=== PATIENT | male | born 1945 | race Caucasian/White ===

== ENCOUNTER 2016-06-06 12:49 | Emergency (ER) | payer MEDICARE, MEDICAID ==
[2016-02-18 12:18] VITALS: BMI 21.9
[~2016-06-06 12:49] MED LIST: COREG12.5 MG PO; Diabeta PO; FERREX 150 PLUS1 CAP PO; FLUTICASONE PRO16 GM NASAL; LANTUS INSULIN10 ML SC; LANTUS INSULIN10 ML SQ; LASIX40 MG PO; LISINOPRIL5 MG PO; PROTONIX40 MG PO; TUMS500 MG PO
[2016-06-06 14:41] LABS: BASOPHILS 0.3 % (0.0-2.0); EOSINOPHILS 3.4 % (0-7); HEMATOCRIT 42.1 % (42.0-54.0); HEMOGLOBIN 13.2 g/dL (13.5-17.5); IMMATURE GRANULOCYTES 0.2 % (0-5); LYMPHOCYTES 18.8 % (15-50); MCH 30.3 pg (26.0-34.0); MCHC 31.4 g/dL (31.0-37.0); MCV 96.8 fL (80.0-100.0); MEAN PLATELET VOLUME 11.5 fL (7.4-10.4); MONOCYTES 15.3 % (2-11); PLATELET COUNT 173 10x3/uL (130-400); RBC 4.35 10x6/uL (4.20-6.10); RDW 16.1 % (11.5-14.5); WBC 5.8 10x3/uL (4.8-10.8)
[2016-06-06 15:16] LABS: APTT 33.8 SECONDS (22.8-39.4); INR 1.05 (0.85-1.17); PROTIME 13.6 SECONDS (11.6-15.0)
[2016-06-06 15:26] LABS: PHOSPHOROUS 5.2 mg/dL (2.5-4.9); TROPONIN-I 0.021 ng/mL (0.000-0.060)
== END 2016-06-06 17:45 | disposition home or self-care (01) ==
LOC: D.ER 12:49
PROVIDERS: Emergency Medicine; Nurse Practitioner Family
DX: T82.838A Hemorrhage due to vascular prosthetic devices, implants and grafts, initial encounter (principal); I12.9 Hypertensive chronic kidney disease with stage 1 through stage 4 chronic kidney disease, or unspecified chronic kidney disease; N18.9 Chronic kidney disease, unspecified; E11.9 Type 2 diabetes mellitus without complications

== ENCOUNTER 2016-07-31 07:58 | Emergency (ER) | payer MEDICARE, MEDICAID ==
[2016-02-18 12:18] VITALS: BMI 21.9
[2016-07-31 08:33] LABS: HEMATOCRIT 27.6 % (42.0-54.0); HEMOGLOBIN 9.4 g/dL (13.5-17.5); LYMPHOCYTES 13.1 % (15-50); MCH 31.9 pg (26.0-34.0); MCHC 34.1 g/dL (31.0-37.0); MCV 93.6 fL (80.0-100.0); MEAN PLATELET VOLUME 10.2 fL (7.4-10.4); NEUTROPHILS 76.6 % (40-80); PLATELET COUNT 191 10x3/uL (130-400); RBC 2.95 10x6/uL (4.20-6.10); RDW 14.2 % (11.5-14.5); WBC 10.6 10x3/uL (4.8-10.8)
[2016-07-31 08:52] LABS: ALKALINE PHOSPHATASE 49 U/L (46-116); ALT (SGPT) 12 U/L (10-68); AMYLASE - SERUM 133 U/L (25-115); BILIRUBIN - TOTAL 0.25 mg/dL (0.2-1.3); CALC OSMOLALITY 314 mosm/kg (275-300); CALCIUM 9.5 mg/dL (8.5-10.1); CARBON DIOXIDE 26.4 mmol/L (21.0-32.0); CHLORIDE - SERUM 101 mmol/L (98-107); CREATININE - SERUM 7.3 mg/dL (0.6-1.3); LIPASE 122 U/L (73-393); POTASSIUM - SERUM 3.8 mmol/L (3.5-5.1); PROTEIN - SERUM 6.8 g/dL (6.4-8.2); SODIUM 139 mmol/L (136-145); UREA NITROGEN 99 mg/dL (7-18); eGFR NON AFRICAN AMERICAN 8 mL/min (90-120)
[2016-07-31 08:54] LABS: GLUCOSE 214 mg/dL (74-106)
[2016-07-31 09:02] LABS: KETONE - SERUM NEGATIVE (NEGATIVE)
== END 2016-07-31 11:03 | disposition home or self-care (01) ==
LOC: D.ER 07:58
PROVIDERS: Emergency Medicine
DX: E86.0 Dehydration (principal); R11.2 Nausea with vomiting, unspecified; E11.22 Type 2 diabetes mellitus with diabetic chronic kidney disease; E11.65 Type 2 diabetes mellitus with hyperglycemia; I12.0 Hypertensive chronic kidney disease with stage 5 chronic kidney disease or end stage renal disease; N18.6 End stage renal disease; Z79.4 Long term (current) use of insulin

== ENCOUNTER 2016-09-07 08:06 | Day surgery (SDC) | payer MEDICARE ==
[2016-02-18 12:18] VITALS: BMI 21.9
[2016-09-07] MEDS ORDERED: RENVELA800 MG PO (08:59)
--- NOTE | 2016-09-07 09:09 | NUR ---
PATIENT HAS EATEN A HALF A BOWL OF OATMEAL THIS MORNING.STATES DID NOT KNOW HE WAS TO BE NPO AFTER MIDNIGHT. DR ALEJANDRO INFORMED THAT HE HAD EATEN HALF A BOWL OF OATMEAL, ALSO INFORMED DR CHOE. SURGERY HAS BEEN CANCELLED. PT INSTRUCTED TO CALL DR ALEJANDRO'S OFFICE FOR RESCHEDULE. DR ALEJANDRO INFORMED LAB WAS DRAWN VIA LEFT ARM. PATIENT INSTRUCTED ON NOT LETTING ANYONE DO A BLOOD PRESSURE OR LAB DRAW ON LEFT ARM AND NOT TO WEAR JEWELRY OR RESTRICTIVE CLOTHING ON LEFT ARM.
[2016-09-07 09:13] LABS: BASOPHILS 0.7 % (0-2); HEMOGLOBIN 10.5 g/dL (13.5-17.5); IMMATURE GRANULOCYTES 0.2 % (0-5); LYMPHOCYTES 18.2 % (15-50); MCH 31.9 pg (26.0-34.0); MCHC 30.9 g/dL (31.0-37.0); MCV 103.3 fL (80.0-100.0); MONOCYTES 9.6 % (2-11); NEUTROPHILS 68.3 % (40-80); PLATELET COUNT 234 10x3/uL (130-400); RBC 3.29 10x6/uL (4.20-6.10); RDW 15.2 % (11.5-14.5); WBC 6.1 10x3/uL (4.8-10.8)
[2016-09-07 09:21] LABS: INR 1.06 (0.85-1.17); PROTIME 13.7 SECONDS (11.6-15.0)
[2016-09-07 09:22] LABS: APTT 33.1 SECONDS (22.8-39.4)
[2016-09-07 09:23] LABS: ANION GAP 11.8 mmol/L (8-16); CALCIUM 8.8 mg/dL (8.5-10.1); CARBON DIOXIDE 28.1 mmol/L (21.0-32.0); CREATININE - SERUM 5.9 mg/dL (0.6-1.3); POTASSIUM - SERUM 3.9 mmol/L (3.5-5.1)
== END 2016-09-07 09:14 | disposition home or self-care (01) ==
LOC: D.OPS 08:06
PROVIDERS: Internal Medicine Nephrology
DX: N18.6 End stage renal disease (principal); Z01.810 Encounter for preprocedural cardiovascular examination; Z01.811 Encounter for preprocedural respiratory examination; Z01.812 Encounter for preprocedural laboratory examination; Z53.9 Procedure and treatment not carried out, unspecified reason

== ENCOUNTER 2016-11-17 20:30 | Inpatient (IN) | payer MEDICARE ==
[~2016-11-17] VITALS: Ht 170.2 cm; Wt 63.9 kg
[~2016-11-17 20:30] MED LIST changes: +RENVELA800 MG PO
[2016-11-17 21:04] LABS: BASOPHILS 0.3 % (0-2); EOSINOPHILS 3.3 % (0-7); HEMATOCRIT 41.5 % (42.0-54.0); HEMOGLOBIN 13.1 g/dL (13.5-17.5); IMMATURE GRANULOCYTES 0.2 % (0-5); LYMPHOCYTES 10.4 % (15-50); MCH 31.5 pg (26.0-34.0); MCHC 31.6 g/dL (31.0-37.0); MCV 99.8 fL (80.0-100.0); MONOCYTES 8.9 % (2-11); NEUTROPHILS 76.9 % (40-80); RBC 4.16 10x6/uL (4.20-6.10); RDW 14.3 % (11.5-14.5); WBC 11.9 10x3/uL (4.8-10.8)
[2016-11-17 21:06] LABS: PLATELET COUNT 185 10x3/uL (130-400)
[2016-11-17 21:20] LABS: APTT 33.5 SECONDS (22.8-39.4); INR 0.97 (0.85-1.17); PROTIME 12.7 SECONDS (11.6-15.0)
[2016-11-17 21:25] LABS: ALBUMIN 3.3 g/dL (3.4-5.0); ANION GAP 9.2 mmol/L (8-16); BILIRUBIN - TOTAL 0.51 mg/dL (0.2-1.3); CALCIUM 8.9 mg/dL (8.5-10.1); CARBON DIOXIDE 29.2 mmol/L (21.0-32.0); CREATININE - SERUM 6.2 mg/dL (0.6-1.3); POTASSIUM - SERUM 4.4 mmol/L (3.5-5.1); PROTEIN - SERUM 6.9 g/dL (6.4-8.2)
[2016-11-17 21:38] LABS: APPEARANCE CLEAR (CLEAR); BILIRUBIN NEGATIVE (NEGATIVE); COLOR YELLOW (YELLOW); GLUCOSE 250 mg/dL (NEGATIVE); KETONE NEGATIVE (NEGATIVE); LEUKOCYTE ESTERASE NEGATIVE (NEGATIVE); NITRITE NEGATIVE (NEGATIVE); PROTEIN 2+ mg/dL (NEGATIVE); SPECIFIC GRAVITY 1.005 (1.005-1.020); UROBILINOGEN NORMAL (NORMAL)
[2016-11-17 21:47] LABS: BACTERIA FEW /hpf (NONE SEEN); EPITHELIAL CELLS RARE /hpf (0-5); HYALINE CAST OCC /lpf (NONE SEEN); RED CELLS - URINE 0-5 /hpf (0-5); WHITE CELLS - URINE OCC /hpf (0-5)
[2016-11-18] VITALS (7 sets, daily range): BP systolic 139–223; BP diastolic 66–104; BMI 22.9
--- NOTE | 2016-11-18 02:00 | NUR ---
PT ARRIVED TO ROOM 2130 AT 0100 PER STRETCHER. ALERT/DIFFICULT TO UNDERSTAND SPEECH, SOME SLURRING OF WORDS NOTED. ADMISSION HISTORY AND ASSESSMENT COMPLETED. LEFT CHEST WALL HEMOSPLIT WITH DRESSIG IN PLACE. 20G PIV TO LEFT HAND. PT INDICATED THAT RENAL HAS BEEN RESERVING HIS RIGHT ARM FOR A FUTURE FISTULA. SPENCER PATENT TO BEDSIDE DRAIN BAG. PT HAD BEEN HAVING SEVERE RIGHT FOOT PAIN WHILE IN ER, ETIOLOGY UNKNOWN. FOOT IS NOW WRAPPED IN A TOWEL AND PT IS SAYING IT IS OK, BUT TO LEAVE IT WRAPPED. SEE ADMISSION ASSESSMENT. INITIATE PLAN OF CARE.
--- NOTE | 2016-11-18 07:21 | NUR ---
PT IN BED. GOWN NURSING HOME OFF. COMPLAINS OF BEING "TANGLED." RE-MADE PTs BED. REPLACED TELEMETRY LEADS. PT STILL COMPLAINING OF BEING "TANGLED." SLURRED SPEECH NOTED. WILL CONTINUE TO MONITOR.
--- NOTE | 2016-11-18 12:34 | NUR ---
RECIEVING COMPLAINTS FROM PATIENTS IN ROOMS SURROUNDING THIS PTs ROOM. PT HAS BEEN YELLING REPEATEDLY SINCE THE DIRECTOR OF IT OPERATIONS HOURS. WHEN ASKED WHAT HIS NEEDS ARE HE STATES "IM BEING IGNORED" I HAVE BEEN IN HIS ROOM EVERY 15 MINUTES SINCE REECIEVING REPORT AT 0700. I HAVE CHANGED HIS BED. HE HAS BEEN BATHED. HE RECIVED HIS MORNING MEDS. HE IS CONSTANTLY COMPLAINING OF RIGHT CALF PAIN. I REPORTED THIS TO VISHALN INDUSTRIAL ENGINEER. SHE ORDERED A DOPPLER. I WILL CONTINUE TO MONITOR.
--- NOTE | 2016-11-18 12:38 | NUR ---
CONCHITA TAVAREZ CALLED TO CHECK ON PATIENT. REPORTS THAT PATIENT DID NOT GET DIALYSIS YESTERDAY. STATES THAT HE IS ON HIS WAY UP TO VISIT AT THIS TIME. THIS ZOOGLER STATED THAT WOULD BE A GREAT IDEA, MAY HELP BEHAVIORS THAT PATIENT IS EXHIBITING.
--- NOTE | 2016-11-18 12:43 | NUR ---
PATIENT CONTINUALLY PUSHES HIS CALL LIGHT. SOON THE NURSE LEAVES THE ROOM, PATIENT IS PUSHING THE CALL LIGHT. PATIENT CONTINUES TO STATE HE IS BEING IGNORED. PATIENT DENIES ANY NEEDS. UNABLE TO PROVIDED ONE ON ONE CARE TO THIS PATIENT, PATIENT WANTS SOMEONE IN THE ROOM WITH HIM. WAITING FOR CAREGIVER TO ARRIVE AT THIS TIME.
--- NOTE | 2016-11-18 13:46 | NUR ---
NEW ORDER RECEIVED FROM RENAL AUTOMATIC FANCY MACHINE OPERATOR FOR PROJECTILE VOMITING.
--- NOTE | 2016-11-18 13:53 | NUR ---
MEDICATED FOR NAUSEA AND VOMITING AT THIS TIME. PATIENT LEAVING UNIT VIA BED AT THIS TIME FOR CT.
--- NOTE | 2016-11-18 14:10 | NUR ---
PT RETURNED TO FLOOR AT THIS TIME.
--- NOTE | 2016-11-18 16:25 | NUR ---
IV LABETALOL ADMINISTERED FOR BP 223/104. BP NOW 205/98. WILL CONTINUE TO MONITOR BP.
--- NOTE | 2016-11-18 17:35 | NUR ---
BP CONTINUED TO BE ELEVATED AT 198/98 ONE HOUR S/P ADMINISTERING 10MG LABETALOL IV. HYDRALAZINE 20MG ADMINISTERED AT THIS TIME. BP REDUCED TO 177/86 AT THIS TIME. NO DISTRESS.
--- NOTE | 2016-11-18 19:30 | NUR ---
RECEIVED PT IN BED EYES CLOSED RESP UNLABORED SKIN W/D NAD NOTED WILL CONTINUE TO MONITOR
--- NOTE | 2016-11-18 20:41 | NUR ---
PT NAUSEATED AND VOMITTING BROWN EMESIS APPROX 150 CC ZOFRAN 4 MG GIVED SIVP
--- NOTE | 2016-11-18 21:15 | NUR ---
PT RESITING QUIETLY EYES CLOSED RESP UNLABORED WILL CONTINUE TO MONITOR
[2016-11-19] VITALS: BP 188/81
[2016-11-19 06:06] LABS: BASOPHILS 0.2 % (0-2); EOSINOPHILS 1.6 % (0-7); HEMATOCRIT 45.1 % (42.0-54.0); HEMOGLOBIN 14.3 g/dL (13.5-17.5); IMMATURE GRANULOCYTES 0.2 % (0-5); MCH 31.4 pg (26.0-34.0); MCHC 31.7 g/dL (31.0-37.0); MCV 99.1 fL (80.0-100.0); MEAN PLATELET VOLUME 11.6 fL (7.4-10.4); MONOCYTES 7.8 % (2-11); NEUTROPHILS 85.2 % (40-80); RBC 4.55 10x6/uL (4.20-6.10); RDW 14.6 % (11.5-14.5); WBC 12.2 10x3/uL (4.8-10.8)
[2016-11-19 06:09] LABS: PLATELET COUNT 232 10x3/uL (130-400)
[2016-11-19 06:27] LABS: ANION GAP 17.4 mmol/L (8-16); CARBON DIOXIDE 27.2 mmol/L (21.0-32.0); POTASSIUM - SERUM 4.6 mmol/L (3.5-5.1)
--- NOTE | 2016-11-19 07:24 | NUR ---
AM ROUNDS- PT IN BED, WITH EYES CLOSED. BOX ALARM ATTACHED TO PT. BED LOW AND WHEELS LOCKED. BEDRAILS X2, CALL LIGHT IN REACH, NAD NOTED, WILL CONTINUE TO MONITOR.
[2016-11-19 07:34] VITALS: BP 194/84
--- NOTE | 2016-11-19 08:57 | NUR ---
AM MEDS NOT GIVEN SINCE PT IS STRICT NPO UNTIL SWALLOW EVAL IS DONE.
--- NOTE | 2016-11-19 09:29 | NUR ---
20MG OF HYDRALAZINE GIVEN FOR BP OF 194/84. PLACED PT ON BEDPAN AT THIS TIME. PROVIDED TEACHING ON HOW TO USE CALL LIGHT AND ABOUT NOT GETTING OUT OF BED WITH OUT ASSIST. PT DENIES ANY NEEDS AT THIS TIME. CALL LIGHT IN REACH, NAD NOTED, WILL CONTINUE TO MONITOR.
--- NOTE | 2016-11-19 10:57 | NUR ---
CAREGIVER AT BEDSIDE. PT TOLD CAREGIVER THAT HAS RECEIVED ANY CARE THIS AM. INFOMRED CAREGIVER THAT I HAVE HELPED THE PT WITH THE BEDPAN TWICE AND THAT WILLIAN SAINI HAS BEEN IN PT'S ROOM A COUPLE OF TIMES THIS AM. CAREGIVER WAITING ON DOCTOR TO MAKE ROUNDS CONCERN ABOUT PT'S RT FOOT HURTING. PT DENIES ANY NEEDS AT THIS TIME. CALL LIGHT IN REACH, NAD NOTED, WILL CONTINUE TO MONITOR.
--- NOTE | 2016-11-19 11:06 | NUR ---
BLOOD SUGAR OF 126, NO COVERAGE NEEDED PER S/S. PT IN BED, RT LEG ELEVATED. PT DENIES ANY NEEDS AT THIS TIME. CALL LIGHT IN REACH, CAREGIVER AT BEDSIDE, NAD NOTED, WILL CONTINUE TO MONITOR.
[2016-11-19 11:50] VITALS: BP 151/69
[2016-11-19 13:16] VITALS: Ht 170.2 cm; Wt 63.9 kg
[2016-11-19 15:31] VITALS: BP 128/58
--- NOTE | 2016-11-19 16:27 | NUR ---
OK TO HAVE MECHANICAL SOFT DIET PER SPEECH THERAPIST. WILL ORDER PT A DIET
--- NOTE | 2016-11-19 16:46 | NUR ---
BLOOD SUGAR OF 114 NO COVERAGE NEEDED PER S/S. PT IN BED DENIES ANY NEEDS AT THIS TIME. CALL LIGHT IN REACH, NAD NOTED, CAREGIVER AT BEDSIDE, NAD NOTED, WILL CONTINUE TO MONITOR.
--- NOTE | 2016-11-19 19:30 | NUR ---
PT LYING IN BED. RESTING QUIETLY. PT STATES HE HAS A PAIN LEVEL OF O/10. FSBS ACHS. BED ALARM. REFUSES SCD'S. SPENCER CATH. TELEMETRY. NO O2. LEFT HAND SALINE LOC. LEFT CHEST HEMOSPLIT. DIALYSIS T, TH, SAT. BED IN LOWEST POSITION AND CALL LIGHT WIHTIN REACH.
[2016-11-19 20:59] VITALS: BP 142/71
[2016-11-20 01:20] VITALS: BP 130/79
--- NOTE | 2016-11-20 01:49 | NUR ---
PT LYING IN BED. EYES CLOSED. CHEST RISING AND FALLING. BED IN LOWEST POSITION AND CALL LIGHT WITHIN REACH.
--- NOTE | 2016-11-20 03:09 | NUR ---
PT RESTING IN BED WITH NO DISTRESS. RESPS EVEN/NONLABORED. NO DISTRESS. CPOC.
[2016-11-20 04:37] LABS: BASOPHILS 0.2 % (0-2); EOSINOPHILS 2.1 % (0-7); HEMATOCRIT 44.2 % (42.0-54.0); HEMOGLOBIN 14.1 g/dL (13.5-17.5); IMMATURE GRANULOCYTES 0.2 % (0-5); LYMPHOCYTES 5.6 % (15-50); MCH 31.7 pg (26.0-34.0); MCHC 31.9 g/dL (31.0-37.0); MCV 99.3 fL (80.0-100.0); MEAN PLATELET VOLUME 11.2 fL (7.4-10.4); MONOCYTES 8.7 % (2-11); NEUTROPHILS 83.2 % (40-80); PLATELET COUNT 229 10x3/uL (130-400); RBC 4.45 10x6/uL (4.20-6.10); RDW 14.8 % (11.5-14.5); WBC 12.2 10x3/uL (4.8-10.8)
[2016-11-20 04:58] LABS: ANION GAP 14.8 mmol/L (8-16); CALCIUM 9.1 mg/dL (8.5-10.1); CARBON DIOXIDE 27.4 mmol/L (21.0-32.0); POTASSIUM - SERUM 4.2 mmol/L (3.5-5.1)
[2016-11-20 05:04] VITALS: BP 183/83
--- NOTE | 2016-11-20 07:10 | NUR ---
RECEIVED REPORT. ASSUMED CARE OF PATIENT. CALL LIGHT WITHIN REACH. PATIENT ALERT/ORIENTED. SLIGHT SLURRED SPEECH NOTED WITH RIGHT SIDED WEAKNESS STATED IN REPORT THIS AM. DENIES NEEDS. RESP EVEN AND UNLABORED. NO DISTRESS.
[2016-11-20 08:12] VITALS: BP 158/86
--- NOTE | 2016-11-20 09:13 | NUR ---
PT AT BEDSIDE WORKING WITH PATIENT.
--- NOTE | 2016-11-20 11:45 | NUR ---
PATIENT BP ELEVATED. BP MEDS HELD THIS AM FOR DIALYSIS. SPOKE WITH RENAL DISPENSING OPTICIANKanchan ALMONTE AND EXPLAINED THAT BP IS ELEVATED BUT MEDS HELD FOR DIALYSIS AND GAVE ORDER TO GIVE ONE BP MED THAT SHOULD HAVE BEEN GIVEN THIS AM. CARVEDILOL ADMINISTERED.
[2016-11-20 11:47] VITALS: BP 208/88
--- NOTE | 2016-11-20 12:14 | NUR ---
FSBS 140. NO INSULIN COVERAGE REQUIRED.
--- NOTE | 2016-11-20 15:00 | NUR ---
PATIENT LEFT UNIT VIA BED FOR DIALYSIS. NO DISTRESS UPON LEAVING UNIT.
--- NOTE | 2016-11-20 16:05 | NUR ---
Patient Name: MINNIE ACEVEDO Admission Status: ER Accout number: [id number] Admission Date: 11-17-2016 : 1945 Admission Diagnosis: Attending: OFELIA Current LOS: 3 Anticipated DC Date: Planned Disposition: LONG-TERM FACILITY Primary Insurance: MEDICARE A & B PLANNED EXTERNAL PROVIDER: [facility], MEDICARE REHAB BED Discharge Planning Comments: * Is the patient Alert and Oriented? Yes 0 * How many steps to enter\exit or inside your home? ELEVATOR 0 * PCP NONE REPORTS SEEING UNKNOWN DOCTOR AT [facility] 0 * Pharmacy [facility] [place] 0 * Preadmission Environment Home with Family 0 * ADLs Partial Dependent 0 * Partial ADLs (Assistance needed) Bathing Medication Management 0 * Equipment Cane Glucometer Rolling Walker Wheelchair 0 * Other Equipment NO MEDICAL EQUIPMENT PROVIDER PREFERENCE 0 * List name and contact numbers for known caregivers / representatives who currently or will assist patient after discharge: CONCHITA TAVAREZ, FRIEND/CAREGIVER, 0 * Community resources currently utilized OTHER 0 * Please name any agencies selected above. OUTPATIENT DIALYSIS, [facility], // 5AM, [facility]SP[facility] * Additional services required to return to the preadmission environment? Yes * Can the patient safely return to the preadmission environment? Yes 0 * Has this patient been hospitalized within the prior 30 days at any hospital? No 0 CM MET WITH PT IN ROOM TO DISCUSS DISCHARGE PLANNING AND NEEDS. PT REPORTS LIVING AT HOME WITH THE HELP OF HIS CAREGIVER AND FRIEND, CONCHITA TAVAREZ; PT REPORTS CONCHITA IS AT THE HOME 24 HOURS PER DAY, 7 DAYS PER WEEK. PT HAS CANE, ROLLING WALKER WITH SEAT, GLUCOMETER AND WHEELCHAIR. PT HAS NO MEDICAL EQUIPMENT PROVIDER PREFERENCE. PT HAS NO OUTSIDE SERVICES ASSISTING IN THE HOME. CM DISCUSSED AVAILABILITY OF HOME HEALTH, REHAB SERVICES AND MEDICAL EQUIPMENT. PT REPORTS HE MAY CONSIDER SNF CARE AND WOULD LIKE REHAB SERVICES FIRST; CM DISCUSSED AVAILABILTY OF LONG-TERM FACILITIES IN [place] PT INSISTS ON STAYING IN [place], PT CHOSE [facility] OR [facility], REPORTS HE IS UNABLE TO SIGN CHOICE LETTER DUE TO STROKE. IMPORTANT MESSAGE FROM MEDICARE PROVIDED AND EXPLAINED, PT REPORTED INABILITY TO SIGN AND STATED UNDERSTANDING. CM FAXED REFERRAL TO [facility] AND [facility], . CM WAITING ADMISSION DETERMINATION FROM BOTH LONG-TERM FACILITIES. Paper Cone Maker: Herminio Bowman
--- NOTE | 2016-11-20 17:00 | NUR ---
FSBS 120. NO INSULIN ADMINISTERED PER SLIDING SCALE. PATIENT IS TOLERATING DIALYSIS WELL.
--- NOTE | 2016-11-20 18:15 | NUR ---
PATIENT REMAINS DOWNSTAIRS IN DIALYSIS AT THIS TIME.
--- NOTE | 2016-11-20 19:16 | NUR ---
PT LYING IN BED. RESTING QUIETLY. PT STATES HE HAS A PAIN LEVEL OF O/10. FSBS ACHS. BED ALARM. REFUSES SCD'S. SPECNER CATH. TELEMETRY. NO O2. LEFT HAND SALINE LOC. LEFT CHEST HEMOSPLIT. DIALYSIS T, TH, SAT. PT HAD DIALYSIS TODAY. CAREGIVER IN ROOM. BED IN LOWEST POSITIOBN AND CALL LIGHT WITHIN REACH.
[2016-11-20 20:39] VITALS: BP 138/67
--- NOTE | 2016-11-20 23:10 | NUR ---
CALLED ANSWERING SERVICE X1, ADELE RN CALLED ANSWERING SERVICE X2 TO HAVE THEM PAGE GLASS OR MIRROR INSPECTOR BOOSTER ASSEMBLER. CALL RETURNED FROM DR. MILLARD. INFORMED DR. MILLARD PT IS YELLING OUT AND DISRUPTING OTHER PT'S AND IS CONFUSED AND IS TRYING TO GET OUT OF BED. DR. MILLARD GAVE ME ORDERS FOR A ONE TIME DOSE OF RISPERDONE 0.5MG.
[2016-11-21 00:07] VITALS: BP 153/82
--- NOTE | 2016-11-21 01:24 | NUR ---
NURSE ROUNDS 11/20/06 22:30 - PT LYING IN BED, YELLING OUT, BEING DISRUPTIVE, C/O OF HIS LEG HURTING. PT REFUSED TO BE CONSOLED, AND CONTINUED TO YELL LOUDLY, CAUSING OTHER PATIENTS TO BECOME UNCONFORTABLE AND START COMPLAINING WELL. DARRICK DAVILA, PTS NURSE, DID SPEAK WITH DR. MILLARD WHO ORDERED RISPERDAL 0.5 MG X 1 VIA TELEPHONE AFTER BEING PAGED. PT HOWEVER DID CALM DOWN, FALLING ASLEEP, NOT REQUIRING THE DOSE OF RISPERDAL AT THAT TIME. I WILL PROVIDE SUPPORTIVE CARE TO PT AND NURSE FOR THE REMAINDER OF THIS SHIFT. WILL CONTINUE TO MONITOR PT CLOSELY. BED LOW, CALL LIGHT IN REACH, SIDE RAILS X 3, HOB 10-15 DEGREES, BED ALARM ON.
--- NOTE | 2016-11-21 02:47 | NUR ---
PT YELLING OUT AND TRYING TO GET OUT OF BED. RISPERDONE WILL BE GIVEN ONE TIME DOSE ORDERED.
--- NOTE | 2016-11-21 03:23 | NUR ---
PT BEING VERY DIFFICULT TO HIS PRIMARY NURSE. HE IS CONFUSED/FORGETFUL AND EASILY AGITATED. SPOKE WITH PATIENT ABOUT IMPORTANCE OF KEEPING HIS TELEMETERY ON AND REPLACED HIS TELEMETRY AT THIS TIME. ADMINISTERED DOSE OF RISPERDAL THAT WAS ORDERED EARLIER AND TOLD PT THAT HIS MD HAD ORDERED IT FOR HIM TO SLEEP. DOSE HAD BEEN HELD UNTIL NOW DUE TO PT FALLING ASLEEP AND NO LONGER BEING BELLIGERENT AFTER ORDER HAD BEEN RECIEVEDD, BUT NOW THAT PT IS AWAKE, HE IS, AGAIN, BELLIGERENT/CONFUSED AND NEEDS THE MED. MED HAS NOW BEEN GIVEN. PT ASSISTED TO POSITION OF COMFORT AND COVERED WITH HIS BLANKET AND ENCOURAGED TO SLEEP UNTIL HE SEES HIS MD IN AM. WILL MONITOR AND CONTINUE PLAN OF CARE,
--- NOTE | 2016-11-21 05:08 | NUR ---
PT LYING IN BED. EYES CLOSED. RESP. EVEN. BED IN LOWEST POSITION AND CALL LIGHT WITHIN REACH.
[2016-11-21 05:12] VITALS: BP 127/66
[2016-11-21 05:27] LABS: BASOPHILS 0.3 % (0-2); EOSINOPHILS 3.2 % (0-7); HEMATOCRIT 41.7 % (42.0-54.0); HEMOGLOBIN 13.2 g/dL (13.5-17.5); IMMATURE GRANULOCYTES 0.3 % (0-5); LYMPHOCYTES 13.4 % (15-50); MCH 31.4 pg (26.0-34.0); MCHC 31.7 g/dL (31.0-37.0); MCV 99.3 fL (80.0-100.0); MEAN PLATELET VOLUME 11.2 fL (7.4-10.4); MONOCYTES 13.7 % (2-11); NEUTROPHILS 69.1 % (40-80); PLATELET COUNT 204 10x3/uL (130-400); RDW 14.8 % (11.5-14.5)
[2016-11-21 05:32] LABS: WBC 6.8 10x3/uL (4.8-10.8)
[2016-11-21 05:50] LABS: ANION GAP 13.7 mmol/L (8-16); CALCIUM 9.1 mg/dL (8.5-10.1); CARBON DIOXIDE 28.3 mmol/L (21.0-32.0)
[2016-11-21 05:56] LABS: CREATININE - SERUM 5.2 mg/dL (0.6-1.3)
--- NOTE | 2016-11-21 07:24 | NUR ---
AM ROUNDS - PT RESTING QUIETLY, RR EVEN AND UNLABORED. PT IS ALERT AND ORIENTED TO PERSON AND PLACE. DENIES OTHER NEEDS AT THIS TIME. WILL CTM.
[2016-11-21 09:40] VITALS: BP 127/73
--- NOTE | 2016-11-21 10:40 | NUR ---
HEMASPLIT DRESSING CHANGED. STERILE FEILD MAINTAINED. PT RIPPED A HOLE IN THE ORIGINAL DRESSING. EXPLAINED TO PT IMPORTANCE OF KEEPING THE DRESSING INTACT.
[2016-11-21 12:25] VITALS: BP 182/92
--- NOTE | 2016-11-21 14:00 | NUR ---
Patient Name: MINNIE ACEVEDO Encounter No: [id number] : 1945 Primary Insurance: MEDICARE A & B Anticipated DC Date: 11-21-2016 Planned Disposition: Group Home Facility External Planned Provider: [facility], MEDICARE REHAB BED DCP follow-up note: CM RECEIVED DISCHARGE ORDER, MET WITH PT WHO IS IN AGREEMENT WITH DISCHARGE TO THE [facility] TODAY, PT DOES NOT WANT [facility] FOR REHAB. CM CALLED [facility], NOTIFIED K[facility] VIA MESSAGE THAT PT DID NOT WANT REHAB THERE. CM NOTIFIED ANU WHO REPORTS THE [facility] WILL ACCEPT TODAY AND WILL ARRANGE VAN [employer]GR[employer] PRINTER TIME. CM FAXED DISCHARGE INFORMATION TO THE [facility] AT [phone]. FOR DISCHARGE TO THE [facility], NURSE REPORT TO BE CALLED TO THE [facility] AT [phone]. THE [facility] TO ARRANGE VAN TRANSPORATION FOR 1600 HOURS TODAY. DAYSI HIGGINS, CASE MANAGEMENT
--- NOTE | 2016-11-21 14:57 | NUR ---
CALLED REPORT TO KIRBY GUERRA AT THE [facility]. WILL GIVE COPY OF PAPERWORK TO TRANSPORTED FROM [facility]. PT RESTING QUIETLY, AWAITING DISHCARGE.
--- NOTE | 2016-11-21 17:15 | NUR ---
PT DISCHARGED. TRANSPORTED FROM [facility] VIA WHEELCHAIR. [facility] STAFF PICKED UP PT.
--- NOTE | 2016-11-21 17:32 | NUR ---
OT NOTE: PT COMPLETED BED MOB WITH SBA. PT COMPLETED EOB SITTING WITH SBA. PT COMPLETED GROOMING AND ORAL HYGIENE TASKS WITH SET UP AND MOD CUES. THANK YOU, WILLEM LUCAS
== END 2016-11-21 17:16 | DRG 551 ==
LOC: D.ER 20:30 → D.M2 23:12
PROVIDERS: Emergency Medicine; Nurse Practitioner Family; ADMIT Internal Medicine
DX: M54.5 Low back pain (principal); N18.6 End stage renal disease; I12.0 Hypertensive chronic kidney disease with stage 5 chronic kidney disease or end stage renal disease; M79.604 Pain in right leg; R53.1 Weakness; W19.XXXA Unspecified fall, initial encounter; E11.40 Type 2 diabetes mellitus with diabetic neuropathy, unspecified; M41.9 Scoliosis, unspecified; M47.9 Spondylosis, unspecified; E11.22 Type 2 diabetes mellitus with diabetic chronic kidney disease; Z99.2 Dependence on renal dialysis; D63.1 Anemia in chronic kidney disease; F32.9 Major depressive disorder, single episode, unspecified; Z91.81 History of falling

== ENCOUNTER 2016-11-30 07:29 | Day surgery (SDC) | payer MEDICARE ==
[~2016-11-30] VITALS: Ht 170.2 cm; Wt 64.4 kg
--- NOTE | ~2016-11-30 | OP ---
PATIENT NAME: MINNIE ACEVEDO MEDICAL RECORD: [id number] :[birth year] LOCATION:[facility] ADMISSION DATE: SURGEON: IGOR ALEJANDRO MD DATE OF OPERATION: 11/30/2016 PREOPERATIVE DIAGNOSES: 1. End-stage renal disease. 2. Diabetes mellitus. 3. Hypertension. POSTOPERATIVE DIAGNOSES: 1. End-stage renal disease. 2. Diabetes mellitus. 3. Hypertension. PROCEDURE: Left upper extremity AV graft placement in (4-7 mm) axillary artery to the distal basilic vein. SURGEON: Igor Alejandro MD REPORT OF PROCEDURE: The patient's left upper extremity and axilla were prepped and draped in sterile fashion. Using ultrasound guidance, we found the area in the axilla and also on the distal forearm to house our graft. A skin incision was made in the axilla near the arm and electrocautery was used to dissect through the subcutaneous tissues with care taken not injure any of the other vessels or nerve structures that were present. We were able to dissect out the patient's axillary artery. Vessel loops were placed proximally and distally and we put ties loosely around all the branches. We then made a skin incision on the medial distal aspect of the upper arm and dissected down to the distal basilic vein. Again, vessel loops were placed proximally and distally. We then tunneled a 4 x 7 mm tapered graft between the 2 sites. The patient was given 5000 units of heparin IV at this point after adequate amount of time. An arteriotomy was made in the axillary artery and this was extended with Mercado scissors, the 4 mm side of the graft was cut with a beveled tip and an end-to-side anastomosis was performed using running 7-0 Prolene. The graft was then flushed and appeared to be flowing appropriately. There was some bleeding on the posterior aspect, which was treated with over stitch with another 7-0 Prolene, which discontinued any bleeding. We then beveled the distal end of the graft and again made a venotomy and end-to-side anastomosis was then performed using running 7-0 Prolene. Again, there was a small area of bleeding, which was fixed with an oversewing with 7-0 Prolene. At this point, there was no bleeding and there was good pulsatile flow through the graft with a palpable thrill. The wound was then irrigated out thoroughly with normal saline and SPUD dust was placed within it. The subcutaneous tissues were reapproximated with multiple interrupted 3-0 Vicryls and the skin was closed with running subcutaneous 5-0 Monocryl. After the wound was dressed appropriately, it was noted that the graft was still functioning well with a palpable thrill. COMPLICATIONS: None. CONDITION: Stable. ANESTHESIA: General endotracheal. BLOOD LOSS: 100 mL. OPERATIVE REPORT [id number] MINNIE ACEVEDO TRANSINT:[id number] Voice Confirmation ID: [id number] DOCUMENT ID: [id number] IGOR ALEJANDRO MD CC: BUCK PITTMAN MD [id number] DICTATION DATE: 11/30/16 1306 OCC MED PHYSICIAN: 11/30/162031 [facility] 11/30/16 [id number] [place] [address]
[2016-11-30 09:18] LABS: BASOPHILS 0.2 % (0-2); EOSINOPHILS 4.2 % (0-7); HEMATOCRIT 40.9 % (42.0-54.0); HEMOGLOBIN 12.8 g/dL (13.5-17.5); IMMATURE GRANULOCYTES 0.6 % (0-5); LYMPHOCYTES 10.4 % (15-50); MCH 31.1 pg (26.0-34.0); MCHC 31.3 g/dL (31.0-37.0); MCV 99.5 fL (80.0-100.0); MEAN PLATELET VOLUME 10.5 fL (7.4-10.4); MONOCYTES 10.9 % (2-11); NEUTROPHILS 73.7 % (40-80); PLATELET COUNT 186 10x3/uL (130-400); RBC 4.11 10x6/uL (4.20-6.10); RDW 14.3 % (11.5-14.5); WBC 10.8 10x3/uL (4.8-10.8)
[2016-11-30] MEDS ORDERED: LASIX40 MG PO (09:22)
[2016-11-30] MEDS ORDERED: COREG6.25 MG PO (09:22)
[2016-11-30] MEDS ORDERED: FERREX 150 PLUS1 CAP PO (09:22)
[2016-11-30] MEDS ORDERED: PROTONIX40 MG PO (09:22)
[2016-11-30] MEDS ORDERED: GLYBURIDE5 M1 PO (09:23)
[2016-11-30] MEDS ORDERED: FLUTICASONE PRO16 GM NASAL (09:23)
[2016-11-30] MEDS ORDERED: ATIVAN0.5 MG PO (09:29)
[2016-11-30 09:31] LABS: APTT 33.5 SECONDS (22.8-39.4); INR 0.92 (0.85-1.17); PROTIME 12.2 SECONDS (11.6-15.0)
[2016-11-30 09:34] LABS: ANION GAP 11.3 mmol/L (8-16); CARBON DIOXIDE 30.1 mmol/L (21.0-32.0); CREATININE - SERUM 4.4 mg/dL (0.6-1.3); POTASSIUM - SERUM 4.4 mmol/L (3.5-5.1)
[2016-11-30 10:14] VITALS: Ht 170.2 cm; Wt 64.4 kg
--- NOTE | 2016-11-30 14:13 | NUR ---
REPORT CALLED TO KIRBY AT THE [facility] PER ELIAS PANG RN
== END 2016-11-30 14:45 | disposition other institution (70) ==
LOC: D.OPS 07:29
PROVIDERS: Internal Medicine Nephrology
DX: E11.22 Type 2 diabetes mellitus with diabetic chronic kidney disease (principal); I12.0 Hypertensive chronic kidney disease with stage 5 chronic kidney disease or end stage renal disease; N18.6 End stage renal disease; Z99.2 Dependence on renal dialysis; F17.200 Nicotine dependence, unspecified, uncomplicated; Z01.812 Encounter for preprocedural laboratory examination

== ENCOUNTER 2016-12-09 01:38 | Inpatient (IN) | payer MEDICARE ==
[~2016-12-09 01:38] MED LIST changes: +ATIVAN0.5 MG PO; +COREG6.25 MG PO; +GLYBURIDE5 M1 PO
[2016-12-09 02:45] LABS: BASOPHILS 0.2 % (0-2); EOSINOPHILS 2.9 % (0-7); HEMATOCRIT 39.5 % (42.0-54.0); HEMOGLOBIN 12.6 g/dL (13.5-17.5); IMMATURE GRANULOCYTES 0.7 % (0-5); LYMPHOCYTES 9.4 % (15-50); MCH 31.7 pg (26.0-34.0); MCHC 31.9 g/dL (31.0-37.0); MCV 99.2 fL (80.0-100.0); MEAN PLATELET VOLUME 10.3 fL (7.4-10.4); NEUTROPHILS 79.8 % (40-80); PLATELET COUNT 223 10x3/uL (130-400); RBC 3.98 10x6/uL (4.20-6.10); RDW 14.8 % (11.5-14.5); WBC 10.2 10x3/uL (4.8-10.8)
[2016-12-09 03:02] LABS: APTT 29.3 SECONDS (22.8-39.4); INR 0.97 (0.85-1.17); PROTIME 12.7 SECONDS (11.6-15.0)
[2016-12-09 03:04] LABS: ALBUMIN 2.8 g/dL (3.4-5.0); BILIRUBIN - TOTAL 0.3 mg/dL (0.2-1.3); CALCIUM 9.4 mg/dL (8.5-10.1); CREATININE - SERUM 5.7 mg/dL (0.6-1.3); PROTEIN - SERUM 6.3 g/dL (6.4-8.2)
--- NOTE | 2016-12-09 05:05 | NUR ---
PT ARRIVES VIA STRETCHER TO ROOM 2137, ASSISTED INTO BED WITH NURSES X3. PT STARTED C/O FEELING NAUSEATED UPON TRANSFER FROM STRETCHER AND VOMITS APPROX 100 CC OF DARK BROWN/MAROON EMESIS. SPECIMAN OBTAINED AND SENT TO LAB FOR GASTRIC OB. ORDER ALSO OBTAINED FOR ZOFRAN 4 MG IV NOW AND Q6H PRN FOR NAUSEA AND/OR VOMITING. ADMISSION ASSESSMENT COMPLETED, VSS, AFERBILE. LEFT ARM WITH AV FISTULA - ARM IS DARK RED, SWOLLEN, TENDER AND HOT TO THE TOUCH. SORE TO THE TOP OF FISTULA WITH WHITE PUSTULES. LEFT CHEST HEMOSPLIT WITH DRESSING INTACT. MEDICATIONS RECONCILED. WILL MONITOR.
--- NOTE | 2016-12-09 05:32 | NUR ---
PT ARRIVED FROM ER. C/O NAUSEA. ZOFRAN GIVEN IN RIGHT FOREARM IV. REPOSITIONED PT FOR COMFORT. PT HAS ZOSYN INFUSING TO RIGHT ARM IV, IT WAS STARTED IN ER. WILL GIVE VANC SOON ZOSYN IS DONE. PT HAS A LEFT ARM FISTULA, AND A LEFT SUB DIALYSIS ACCESS. LEFT ARM SWOLLEN AND RED. PT DENIES ANY OTHER NEEDS, BED LOW AND CALL LIGHT WITHIN REACH WILL CPOC
[2016-12-09] MEDS ORDERED: FUROSEMIDE40 MG PO (05:38)
[2016-12-09 08:00] VITALS: BP 109/70
[2016-12-09 09:08] LABS: BASOPHILS 0.2 % (0-2); EOSINOPHILS 0.9 % (0-7); HEMATOCRIT 37.3 % (42.0-54.0); HEMOGLOBIN 11.8 g/dL (13.5-17.5); IMMATURE GRANULOCYTES 0.4 % (0-5); LYMPHOCYTES 6.7 % (15-50); MCHC 31.6 g/dL (31.0-37.0); MCV 101.1 fL (80.0-100.0); MEAN PLATELET VOLUME 10.3 fL (7.4-10.4); MONOCYTES 9.7 % (2-11); NEUTROPHILS 82.1 % (40-80); PLATELET COUNT 220 10x3/uL (130-400); RBC 3.69 10x6/uL (4.20-6.10); RDW 15.2 % (11.5-14.5)
[2016-12-09 09:11] LABS: WBC 14.4 10x3/uL (4.8-10.8)
[2016-12-09 09:27] LABS: ANION GAP 14.4 mmol/L (8-16); CALCIUM 9.6 mg/dL (8.5-10.1); CARBON DIOXIDE 29.7 mmol/L (21.0-32.0); CREATININE - SERUM 5.8 mg/dL (0.6-1.3); POTASSIUM - SERUM 4.1 mmol/L (3.5-5.1)
[2016-12-09 16:00] VITALS: BP 170/80
--- NOTE | 2016-12-09 16:01 | NUR ---
YELLING OUT. ASK WHAT IS WRONG, PATIENT REPLIES, "I DON'T KNOW." ASK WHY YELLING, PATIENT REPLIES, "I DON'T KNOW." ASK PATIENT TO STOP YELLING BECAUSE YELLING DISTURBS THE OTHER PATIENTS. PATIENT REPLIES, "I CAN'T." REORIENT TO CALL LIGHT FOR HELP AND TO WATCH TV. THREE SIDERAIL UP. PROTONIX DRIP INFUSION AT 10mL/HR THROUGH RT FA IV. BED LOCKED AND LOW.
--- NOTE | 2016-12-09 16:59 | NUR ---
SITTING UP IN BED. PROJECTILE VOMITING COFFEE GROUNDS. PAGE DOCTOR MADALYN. FRIEND AT BEDSIDE. DENIES ANY NEEDS. AGREES SOME RELIEF AFTER VOMITING. CONTINUE PLAN OF CARE. BED LOCKED AND LOW. CALL LIGHT IN REACH. TWO SIDERAIL UP.
--- NOTE | 2016-12-09 19:15 | NUR ---
PT ASLEEP. RESPIRATIONS EVEN AND UNLABORED. NO S/S OF DISTRESS. ROOM MATE [facility] AT BED SIDE. BED LOW AND CALL LIGHT WITHIN REACH. WILL CPOC
[2016-12-09 20:00] VITALS: BP 157/78
--- NOTE | 2016-12-09 21:16 | NUR ---
PT RESTING IN BED LAYING ON RIGHT SIDE. C/O NAUSEA AND IS ANXIOUS. ZOFRN AND ATIVAN GIVEN ORDER. PT HAS PROTONIX INFUSING AT 10ML/HR TO RIGHT ARM IV. IV PATENT, NO REDNESS CDI. PT DENIES ANY NEEDS AT THIS TIME. NO S/S OF DISTRESS. WILL CPOC
[2016-12-10] VITALS: BP 168/67
--- NOTE | 2016-12-10 00:04 | NUR ---
PT ASLEEP. RESPIRATIONS EVEN AND UNLABORED. NO S/S OF DISTRESS. BED LOW AND CALL LIGHT WITHIN REACH. WILL CPOC
[2016-12-10 04:00] VITALS: BP 161/80
--- NOTE | 2016-12-10 04:26 | NUR ---
PT ASLEEP. WAKES WITH VERBAL STIMUI. DENIES ANY NEEDS. NO S/S OF DISTRESS. BED LOW AND CALL LIGHT WITHIN REACH. WILL CPOC
[2016-12-10 05:21] LABS: BASOPHILS 0.2 % (0-2); EOSINOPHILS 2.3 % (0-7); HEMATOCRIT 34.4 % (42.0-54.0); HEMOGLOBIN 10.5 g/dL (13.5-17.5); IMMATURE GRANULOCYTES 0.4 % (0-5); LYMPHOCYTES 6.8 % (15-50); MCH 30.5 pg (26.0-34.0); MCHC 30.5 g/dL (31.0-37.0); MEAN PLATELET VOLUME 9.9 fL (7.4-10.4); MONOCYTES 9.8 % (2-11); NEUTROPHILS 80.5 % (40-80); PLATELET COUNT 232 10x3/uL (130-400); RBC 3.44 10x6/uL (4.20-6.10); RDW 15.3 % (11.5-14.5); WBC 13.3 10x3/uL (4.8-10.8)
[2016-12-10 05:31] LABS: INR 1.03 (0.85-1.17); PROTIME 13.3 SECONDS (11.6-15.0)
[2016-12-10 05:49] LABS: ALBUMIN 2.4 g/dL (3.4-5.0); ANION GAP 13.1 mmol/L (8-16); BILIRUBIN - TOTAL 0.49 mg/dL (0.2-1.3); CALCIUM 8.7 mg/dL (8.5-10.1); CARBON DIOXIDE 31.9 mmol/L (21.0-32.0); CREATININE - SERUM 6.9 mg/dL (0.6-1.3); MAGNESIUM - SERUM 1.9 mg/dL (1.8-2.4); PHOSPHOROUS 3.6 mg/dL (2.5-4.9); PROTEIN - SERUM 6.2 g/dL (6.4-8.2)
--- NOTE | 2016-12-10 06:48 | NUR ---
PT RESTING IN BED. DENIES ANY NEEDS. NO S/S OF DISTRESS. STATES THAT ZOFRAN IS WORKING FOR NAUSEA. PT HAS NOT HAD ANY EMESIS OUTPUT ON THIS SHIFT. BED LOW AND CALL LIGHT WITHIN REACH. WILL CPOC
[2016-12-10 08:00] VITALS: BP 167/70
--- NOTE | 2016-12-10 15:00 | NUR ---
ALERT AND ORIENTED X4. SCREAMING IN BED. ASK WHAT'S WRONG. PATIENT STATES, "I NEED TO USE THE BATHROOM." BRING BEDPAN IN ROOM. PATIENT STATES, "I AM NOT USING THE BEDPAN, NOW GET ME UP OR I WILL KEEP SCREAMING." ENCOURAGE TO STOP SCREAMING DUE TO INTERRUPTION WITH OTHER PATIENTS. PATIENT STATES, "I DON'T CARE, GET ME A DOCTOR OR LET ME LEAVE." NOTIFY SHANA, RENAL INSURANCE MARKETING REP. PYCH CONSULT ORDERED. CALL CONCHITA (PATIENT FRIEND) NO ANSWER. CONTINUE PLAN OF CARE. BED LOCKED AND LOW. CALL LIGHT IN REACH. THREE SIDERAILS UP.
[2016-12-10 15:07] VITALS: Ht 170.2 cm
--- NOTE | 2016-12-10 17:18 | NUR ---
Patient Name: MINNIE ACEVEDO Admission Status: ER Accout number: [id number] Admission Date: 12-09-2016 : 1945 Admission Diagnosis: Attending: OFELIA Current LOS: 1 Anticipated DC Date: Planned Disposition: Retirement Facility Primary Insurance: MEDICARE A & B PLANNED EXTERNAL PROVIDER: [facility], MEDICARE REHAB BED Discharge Planning Comments: * Is the patient Alert and Oriented? Yes 0 * How many steps to enter\exit or inside your home? NONE 0 * PCP [facility] 0 * Pharmacy [facility] 0 * Preadmission Environment Retirement Facility 0 * Facility Name [facility] 0 * ADLs Partial Dependent 0 * Partial ADLs (Assistance needed) Ambulation Bathing Medication Management Toileting Transfers 0 * Equipment Other 0 * Other Equipment ALL MEDICAL EQUIPMENT PROVIDED BY FACILITY 0 * List name and contact numbers for known caregivers / representatives who currently or will assist patient after discharge: HERMINIO ARANGO, CAREGIVER, 0 * Community resources currently utilized Other 0 * Please name any agencies selected above. OUTPATIENT DIALYSIS 0 * Additional services required to return to the preadmission environment? No 0 * Can the patient safely return to the preadmission environment? Yes 0 * Has this patient been hospitalized within the prior 30 days at any hospital? Yes 0 CM HEARD YELLING FOR HELP, MET WITH PT IN ROOM TO FIND OUT WHAT IS WRONG AND TO DISCUSS DISCHARGE PLANNING AND NEEDS, PT REPORTS HE NEEDS TO GO TO THE BATHROOM AND DOES NOT WANT TO USE THE BEDPAN. CM EXPLAINED TO PT THAT HE IS DISTURBING OTHER PATIENTS YELLING OUT AND EXPLAINED USE OF CALL LIGHT. CM NOTIFIED NURSE OF PT'S DESIRE AND WAS ADVISED THAT PT DOES NOT WANT TO USE THE BEDPAN BUT CANNOT WALK AND IT IS NOT SAFE TO GET PT UP AT THIS TIME; THIS HAS BEEN EXPLAINED TO THE PATIENT WHO STILL REFUSES BED PEOPLES AND IS YELLING. CM EXPLAINED THIS TO PT. CM DISCUSSE DISCHARGE PLANNING, PT STATES HE WAS AT [facility] FOR REHAB AND WILL BE RETURNING AT DISCHARGE. PT GOES TO DIALYSIS BUT DOES NOT KNOW THE DAY OR TIME. PT DID NOT WANT TO TALK ANYMORE, CLOSED EYES AND REFUSED TO TALK TO CM. CM SPOKE TO [facility], CLINICAL LIAISON FOR THE [facility] AT [phone], [facility] WILL ACCEPT PT BACK AT DISCHARGE FOR CONTINUED REHAB SERVICES. CM FAXED HOSPITAL UPDATE TO THE [facility] VIA [employer] AT [phone]. FOR DISCHARGE TO [facility], FAX DISCHARGE INFORMATION TO THE [facility] AT [phone]; NURSE REPORT TO BE CALLED TO THE [facility] AT [phone]. THE [facility] TO ARRANGE VAN TRANSPORATION. Manufacturing Management Associate: Herminio Bowman
[2016-12-10 19:00] VITALS: BP 147/66
--- NOTE | 2016-12-10 21:55 | NUR ---
PT C/O NEEDING TO HAVE BM. CAN NOT GIVE HIS PROTONIX OR ZOSYN UNTIL I GET IV ACCESS. WILL UPDATE ONCE I DO. PT YELLING OUT AND GRUNTING. GIVING PT ATIVAN. PT STATES HE IS GOING TO BECAUSE HE IS NOT GETTING ATTENTION. STATES HE DOES NOT WANT TO HARM HIS SELF JUST FEELS LIKE HE IS DGOING TO . I REASSURED PT HE IS NOT DYING. BED LOW BOX ALARM ON AND CALL LIGHT WITHIN REACH. WILL CPOC
[2016-12-11 04:00] VITALS: BP 167/59
[2016-12-11 07:06] LABS: BASOPHILS 0.3 % (0-2); EOSINOPHILS 4.1 % (0-7); HEMATOCRIT 31.2 % (42.0-54.0); HEMOGLOBIN 9.8 g/dL (13.5-17.5); IMMATURE GRANULOCYTES 0.4 % (0-5); LYMPHOCYTES 10.5 % (15-50); MCH 31.2 pg (26.0-34.0); MCHC 31.4 g/dL (31.0-37.0); MCV 99.4 fL (80.0-100.0); MEAN PLATELET VOLUME 9.8 fL (7.4-10.4); MONOCYTES 7.6 % (2-11); NEUTROPHILS 77.1 % (40-80); PLATELET COUNT 194 10x3/uL (130-400); RBC 3.14 10x6/uL (4.20-6.10); RDW 15.5 % (11.5-14.5)
[2016-12-11 07:24] LABS: ALBUMIN 2.3 g/dL (3.4-5.0); ANION GAP 15.6 mmol/L (8-16); BILIRUBIN - TOTAL 0.41 mg/dL (0.2-1.3); CALCIUM 8.7 mg/dL (8.5-10.1); CARBON DIOXIDE 27.3 mmol/L (21.0-32.0); CREATININE - SERUM 7.4 mg/dL (0.6-1.3); POTASSIUM - SERUM 3.9 mmol/L (3.5-5.1); PROTEIN - SERUM 6.3 g/dL (6.4-8.2); VANCOMYCIN - RANDOM 12.1 ug/mL (10.0-20.0)
--- NOTE | 2016-12-11 07:25 | NUR ---
RECEIVED REPORT. ASSUMED CARE OF PATIENT. PATIENT RESTING IN BED WITH EYES CLOSED, EASILY AROUSED. RESP EVEN AND UNLABORED. PATIENT DOES NOT HAVE IV ACCESS, PULLED IV OUT. RESERVE LEFT ARM. PATIENT TO RECEIVE DIALYSIS THIS AM. NO DISTRESS. CALL LIGHT WITHIN REACH.
[2016-12-11 08:18] VITALS: BP 154/72
--- NOTE | 2016-12-11 08:33 | NUR ---
PHONE CONSENT OBTAINED FROM CONCHITA TAVAREZ TO DO EGD. PT AGREES ALSO BUT PT IS ONLY ORIENTED X2. LUIS FERNANDO ANGELA RN WITNESSED ALSO. CONSENTS PLACED ON CHART.
--- NOTE | 2016-12-11 10:25 | NUR ---
PATIENT LEFT UNIT AT THIS TIME VIA BED TO DIALYSIS SUITE. NO DISTRESS UPON LEAVING UNIT.
--- NOTE | 2016-12-11 13:31 | NUR ---
PATIENT RETURNED FROM DIALYSIS AT THIS TIME. NO DISTRESS. GI LAB CALLED AND WILL BE HERE TO GET PATIENT AT 1400.
--- NOTE | 2016-12-11 14:55 | NUR ---
ATTEMPT X [address] PERIPHERAL IV, UNSUCCESSFUL. CALLED MIRIAM VASCULAR NURSE AND REQUESTED ASSISTANCE WITH PLACING IV ON PATIENT. RESERVE LEFT ARM.
--- NOTE | 2016-12-11 15:05 | NUR ---
VASCULAR ACCESS NURSE MIRIAM ABLE TO PLACE 24 GAUGE TO RIGHT HAND X 1 STICK. EASY FLUSH, GOOD BLOOD RETURN. DATED, TAPED AND SECURED. IV PROTONIX INFUSING AT THIS TIME. IV PROTONIX STOPPED. GI LAB ON THE WAY TO GET PATIENT FOR EGD AT THIS TIME.
--- NOTE | 2016-12-11 15:09 | NUR ---
PATIENT LEAVING UNIT VIA BED AT THIS TIME FOR EGD. NO DISTRESS UPON LEAVING UNIT.
--- NOTE | 2016-12-11 16:30 | NUR ---
PATIENT RETURNED FROM EGD, ALERT/ORIENTED. IV FLUIDS INFUSING ORDERED AT THIS TIME. TREATMENT PROVIDED TO LEFT UPPER ARM WOUNDS AT THIS TIME. TOLERATED WOUND CARE WELL. NO DISTRESS.
[2016-12-11 16:59] LABS: APPEARANCE CLEAR (CLEAR); BILIRUBIN NEGATIVE (NEGATIVE); COLOR YELLOW (YELLOW); GLUCOSE NEGATIVE (NEGATIVE); KETONE SMALL mg/dL (NEGATIVE); LEUKOCYTE ESTERASE NEGATIVE (NEGATIVE); NITRITE NEGATIVE (NEGATIVE); PROTEIN TRACE mg/dL (NEGATIVE); SPECIFIC GRAVITY 1.005 (1.005-1.020); UROBILINOGEN NORMAL (NORMAL)
[2016-12-11 17:06] VITALS: BP 189/81
[2016-12-11 17:07] LABS: CHOLESTEROL CRYSTALS RARE /hpf (NONE SEEN)
[2016-12-11 17:08] LABS: WHITE CELLS - URINE 0-5 /hpf (0-5)
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
[2016-12-11 20:00] VITALS: BP 176/74
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
[2016-12-12 04:00] VITALS: BP 178/81
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
[2016-12-12 06:24] LABS: BASOPHILS 0.3 % (0-2); EOSINOPHILS 5.4 % (0-7); HEMATOCRIT 32.3 % (42.0-54.0); IMMATURE GRANULOCYTES 0.4 % (0-5); LYMPHOCYTES 16.8 % (15-50); MCH 31.3 pg (26.0-34.0); MCV 100.9 fL (80.0-100.0); MEAN PLATELET VOLUME 10.2 fL (7.4-10.4); MONOCYTES 10.6 % (2-11); NEUTROPHILS 66.5 % (40-80); PLATELET COUNT 218 10x3/uL (130-400); RDW 15.3 % (11.5-14.5); WBC 6.7 10x3/uL (4.8-10.8)
[2016-12-12 06:47] LABS: ALBUMIN 2.3 g/dL (3.4-5.0); ANION GAP 13.8 mmol/L (8-16); BILIRUBIN - TOTAL 0.42 mg/dL (0.2-1.3); CALCIUM 8.3 mg/dL (8.5-10.1); CREATININE - SERUM 5.9 mg/dL (0.6-1.3); POTASSIUM - SERUM 3.8 mmol/L (3.5-5.1); PROTEIN - SERUM 5.8 g/dL (6.4-8.2); VANCOMYCIN - RANDOM 8.7 ug/mL (10.0-20.0)
[2016-12-12 09:00] VITALS: BP 168/69
--- NOTE | 2016-12-12 14:55 | NUR ---
ALERT TO PERSON AND DAY. CONFUSED TO PLACE AND YEAR. OBSERVED TRYING TO CLIMB OUT OF BED. YELLING OUT. REFUSES TO STOP. BEDPAN FOUND ON FLOOR. POOP ON LT HAND. POOP FOUND ON OPPOSITE SIDE OF BEDPAN ON THE FLOOR. RT HAND IV PULLED OUT TIP INTACT. BLOOD ALL OVER BED, FLOOR, AND PATIENT. ASSIST CLEANING UP. BOX ALARM ON. ON FLOOR. NOTIFY PATIENT SAFETY IS AT RISK. BED LOCKED AND LOW. CALL LIGHT IN REACH. THREE SIDERAILS. UP.
--- NOTE | 2016-12-12 15:31 | NUR ---
BOX ALARM GOING OFF. PATIENT TRYING TO GET OUT OF BED. MO MAT PLACED UNDER SHEETS. ENCOURAGE TO STAY IN BED TO PREVENT FALL. INSTRUCT TO STOP YELLING AND DISRUPTING OTHER PATIENTS. BED LOCKED AND LOW. CALL LIGHT IN REACH. THREE SIDERAILS UP.
[2016-12-12 16:00] VITALS: BP 187/96
[2016-12-12 19:00] VITALS: BP 189/91
--- NOTE | 2016-12-13 01:32 | NUR ---
CALL LIGHT IN REACH, WILL CONTINUE WITH PLAN OF CARE.
--- NOTE | 2016-12-13 01:51 | NUR ---
PT LEFT ARM SWOLLEN AND HARD TO TOUCH. MULTIPLE INCISIONS NOTED ON THE UPPER ARM. STAGE 3 NOTED IN LEFT AXILLA. BRACHIAL AND RADIAL PULSE FOUND WITH DOPPLER. WOULD CARE CONSULT SUBMITTED.
[2016-12-13 04:00] VITALS: BP 155/71
[2016-12-13 05:47] LABS: BASOPHILS 0.2 % (0-2); EOSINOPHILS 4.6 % (0-7); HEMATOCRIT 30.8 % (42.0-54.0); HEMOGLOBIN 9.6 g/dL (13.5-17.5); IMMATURE GRANULOCYTES 0.5 % (0-5); LYMPHOCYTES 12.1 % (15-50); MCH 30.9 pg (26.0-34.0); MCHC 31.2 g/dL (31.0-37.0); MEAN PLATELET VOLUME 10.3 fL (7.4-10.4); MONOCYTES 10.8 % (2-11); NEUTROPHILS 71.8 % (40-80); PLATELET COUNT 219 10x3/uL (130-400); RBC 3.11 10x6/uL (4.20-6.10); RDW 15.3 % (11.5-14.5); WBC 8.1 10x3/uL (4.8-10.8)
[2016-12-13 05:56] LABS: ALBUMIN 2.3 g/dL (3.4-5.0); BILIRUBIN - TOTAL 0.35 mg/dL (0.2-1.3); CALCIUM 8.3 mg/dL (8.5-10.1); CARBON DIOXIDE 26.1 mmol/L (21.0-32.0); CREATININE - SERUM 6.8 mg/dL (0.6-1.3); POTASSIUM - SERUM 4.1 mmol/L (3.5-5.1); PROTEIN - SERUM 5.8 g/dL (6.4-8.2); VANCOMYCIN - RANDOM 20.1 ug/mL (10.0-20.0)
--- NOTE | 2016-12-13 07:36 | NUR ---
PT LAYING TO R SIDE DENIES ANY NEEDS AT THIS TIME WILL CONT TO MONITOR
[2016-12-13 08:00] VITALS: BP 197/71
--- NOTE | 2016-12-13 13:08 | NUR ---
PT IS STILL IN DIALYSIS
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
--- NOTE | 2016-12-13 18:23 | NUR ---
PT SITTING UP IN BED WATCHING TV DENIES ANY NEEDS OTHER THAN HOB LOWERED AND LIGHTS TURNED OFF, DONE
[2016-12-13 19:00] VITALS: BP 140/84
--- NOTE | 2016-12-13 19:29 | NUR ---
PT IN BED RESTING EVEN AND UNLABORED RESPIRATIONS NOTED WILL CONTINUE TO MONITOR
[2016-12-14] VITALS: BP 182/87
--- NOTE | 2016-12-14 04:07 | NUR ---
REAL ESTATE BROKER ASSOCIATE AT BEDSIDE TO OBTAIN VITALS, CALL LIGHT IN REACH. WILL CONTINUE WITH PLAN OF CARE.
[2016-12-14 07:01] LABS: HEMATOCRIT 29.2 % (42.0-54.0); HEMOGLOBIN 9.5 g/dL (13.5-17.5); LYMPHOCYTES 15.9 % (15-50); MCH 31.6 pg (26.0-34.0); MCHC 32.5 g/dL (31.0-37.0); MEAN PLATELET VOLUME 10.2 fL (7.4-10.4); NEUTROPHILS 69.5 % (40-80); RBC 3.01 10x6/uL (4.20-6.10); RDW 14.4 % (11.5-14.5); WBC 6.4 10x3/uL (4.8-10.8)
[2016-12-14 07:02] LABS: PLATELET COUNT 120 10x3/uL (130-400)
[2016-12-14 07:09] LABS: ALBUMIN 2.3 g/dL (3.4-5.0); ANION GAP 12.6 mmol/L (8-16); BILIRUBIN - TOTAL 0.33 mg/dL (0.2-1.3); CALCIUM 8.4 mg/dL (8.5-10.1); POTASSIUM - SERUM 3.6 mmol/L (3.5-5.1); PROTEIN - SERUM 6.3 g/dL (6.4-8.2); VANCOMYCIN - RANDOM 24.9 ug/mL (10.0-20.0)
[2016-12-14 08:00] VITALS: BP 176/77
[2016-12-14 12:25] VITALS: BP 207/98
--- NOTE | 2016-12-14 13:54 | NUR ---
Nutrition follow-up: Diet: Renal ADA PO intake ~60% average of last 5 meals. Labs reviewed Wt: No new wt to assess Will continue to monitor patients progress and provide food choices within diet restrictions. RDN following.
[2016-12-14 16:24] VITALS: BP 131/67
--- NOTE | 2016-12-14 17:56 | NUR ---
PT EATING DINNER WITH CAREGIVER AT BEDSIDE ASSISTING. PT IS BEING VERY COOPERATIVE AND PLEASANT. NO CURRENT NEEDS WILL CTM.
[2016-12-14 19:00] VITALS: BP 148/72
[2016-12-15] VITALS: BP 164/77
[2016-12-15 04:00] VITALS: BP 129/63
[2016-12-15 06:26] LABS: BASOPHILS 0.5 % (0-2); EOSINOPHILS 5.7 % (0-7); HEMATOCRIT 31.7 % (42.0-54.0); HEMOGLOBIN 9.9 g/dL (13.5-17.5); IMMATURE GRANULOCYTES 0.9 % (0-5); LYMPHOCYTES 14.5 % (15-50); MCH 31.1 pg (26.0-34.0); MCHC 31.2 g/dL (31.0-37.0); MEAN PLATELET VOLUME 9.9 fL (7.4-10.4); MONOCYTES 10.1 % (2-11); NEUTROPHILS 68.3 % (40-80); RBC 3.18 10x6/uL (4.20-6.10)
[2016-12-15 06:29] LABS: MCV 99.7 fL (80.0-100.0); PLATELET COUNT 217 10x3/uL (130-400); WBC 8.6 10x3/uL (4.8-10.8)
[2016-12-15 06:49] LABS: ALBUMIN 2.2 g/dL (3.4-5.0); ANION GAP 14.3 mmol/L (8-16); BILIRUBIN - TOTAL 0.3 mg/dL (0.2-1.3); CALCIUM 8.7 mg/dL (8.5-10.1); CARBON DIOXIDE 25.5 mmol/L (21.0-32.0); CREATININE - SERUM 6.2 mg/dL (0.6-1.3); POTASSIUM - SERUM 3.8 mmol/L (3.5-5.1); VANCOMYCIN - RANDOM 23.3 ug/mL (10.0-20.0)
--- NOTE | 2016-12-15 08:21 | NUR ---
0715- AM ROUNDING- RECEIVED REPORT FROM INTERVENTIONAL NEURORADIOLOGIST NURSE PRATIMA. PT IS CURRENTLY LAYING IN BED WITH EYES CLOSED RESTING. ON ROOM AIR. NO MONITOR. IV SEEN TO RIGHT FOREARM WITH NS RUNNING AT KVO (5CC). LEFT CHEST HEMOSPLIT SEEN FOR DIALYSIS. RESERVE LEFT ARM FOR AVF. NO NEED AT THIS CURRENT TIME. CALL LIGHT IS IN REACH. WILL CONTINUE TO MONITOR AND CONTINUE WITH PLAN OF CARE.
[2016-12-15 08:49] VITALS: BP 170/78
--- NOTE | 2016-12-15 10:11 | NUR ---
PT TO DIALYSIS VIA BED.
--- NOTE | 2016-12-15 15:36 | NUR ---
PT IS CONFUSED AT THIS TIME. PT IS YELLING OUT IN [place] "NURSE HELP ME" THIS NURSE RUSHED TO PTS ROOM TO MAKE SURE PT IS OK. PT IS SITTING UP IN BED WITH EYES OPEN RESTING. PT SEEMS CONFUSED/ IRRITABLE. I INFORMED PT THAT HE IS SAFE AND IS AT [facility]. PT STATES "I AM IN [place]". I INFORMED PT THAT YES HE IS IN [place] AND HE IS AT [facility], PT REPLIES "YES". MO IS UNDER PT ON BED AND HOOKED UP TO WALL. BED IS IN LOW POSITION, SIDE RAILS ARE UP X2, AND CALL LIGHT PLACED BESIDE PT. WILL CONTINUE TO MONITOR.
--- NOTE | 2016-12-15 16:49 | NUR ---
CAREGIVER IN ROOM, REGARDING NURSING MESSAGE, THIS NURSE ASKED CAREGIVER IF HE WAS INTERESTED IN PT GOING TO [place]. ASTRID STATES HE WANTS PT TO GO TO [place] FOR REHAB FOR [facility]ING [facility] BUT DOES NOT WANT PT TO GO TO [place] PERMANENTLY.
--- NOTE | 2016-12-15 17:31 | NUR ---
THIS NURSE ASSISTED PT OFF BEDPAN. PT IS CONSTIPATED WITH HARD STOOL SEEN. PT DID HAVE SMALL BM WITH HARD, FORMED STOOL. PT GIVEN PRUNE JUICE AND DIET LEMON ALGAACIQ TO ASSIST WITH CONSTIPATTION. CAREGIVER IS AT BEDSIDE. NO FURTHER NEED AT THIS TIME. WILL CONTINUE TO MONITOR.
--- NOTE | 2016-12-15 19:14 | NUR ---
RECIEVED LAYING IN BED ON RIGHT SIDE. ALERT AND ORIENTED TO PERSON ONLY. SPEECH IS MUMBLED AND VERY HARD TO UNDERSTAND. DRIED BM ON OVERBED TABLE. LEFT ARM RESERVED. HEMOSPLIT TO LEFT CHEST WITH DRESSING CLEAN, DRY AND INTACT.. CALL LIGHT AND OVERVED TABLE IN REACH.
[2016-12-15 20:23] VITALS: BP 160/76
[2016-12-16 01:29] VITALS: BP 129/63
[2016-12-16 04:53] LABS: BASOPHILS 0.4 % (0-2); EOSINOPHILS 6.8 % (0-7); HEMATOCRIT 30.5 % (42.0-54.0); HEMOGLOBIN 9.5 g/dL (13.5-17.5); IMMATURE GRANULOCYTES 0.9 % (0-5); LYMPHOCYTES 19.8 % (15-50); MCH 30.9 pg (26.0-34.0); MCHC 31.1 g/dL (31.0-37.0); MCV 99.3 fL (80.0-100.0); MEAN PLATELET VOLUME 10.4 fL (7.4-10.4); MONOCYTES 12.5 % (2-11); NEUTROPHILS 59.6 % (40-80); RBC 3.07 10x6/uL (4.20-6.10); RDW 15.1 % (11.5-14.5); WBC 8.1 10x3/uL (4.8-10.8)
[2016-12-16 04:56] LABS: PLATELET COUNT 262 10x3/uL (130-400)
[2016-12-16 05:13] LABS: ALBUMIN 2.1 g/dL (3.4-5.0); ANION GAP 11.8 mmol/L (8-16); BILIRUBIN - TOTAL 0.3 mg/dL (0.2-1.3); CALCIUM 8.2 mg/dL (8.5-10.1); CARBON DIOXIDE 28.7 mmol/L (21.0-32.0); POTASSIUM - SERUM 3.5 mmol/L (3.5-5.1); PROTEIN - SERUM 5.8 g/dL (6.4-8.2); VANCOMYCIN - RANDOM 16.1 ug/mL (10.0-20.0)
[2016-12-16 05:19] LABS: CREATININE - SERUM 4.4 mg/dL (0.6-1.3)
[2016-12-16 05:44] VITALS: BP 157/69
--- NOTE | 2016-12-16 07:37 | NUR ---
AM ROUNDING- RECEIVED REPORT FROM MEDICAL OFFICE SCHEDULER NURSE GOLD. PT IS CURRENTLY SITTING UP IN BED WITH EYES CLOSED RESTING. ON ROOM AIR. NO MONITOR. IV SEEN TO RIGHT HAND THAT IS CURRENTLY SALINE LOCKED. RESERVE LEFT ARM FOR AVF (CURRETNLY NOT IN USE). LEFT CHEST HEMOSPLIT SEEN FOR DIALYSIS. MO ALARM IS ON (PT CONFUSED AT TIMES). BED IS IN LOW POSITION, SIDE RAILS ARE UP X2, AND CALL LIGHT IS IN REACH. WILL CONTINUE TO MONITOR AND CONTINUE WITH PLAN OF CARE.
[2016-12-16 07:58] VITALS: BP 165/76
[2016-12-16 11:54] VITALS: BP 187/81
--- NOTE | 2016-12-16 13:37 | NUR ---
SIMRAN TAVERAS NP REGARDING ORDER TO OBTAIN CONSENT FOR PROCEDURE. ORDER DID NOT SPECIFY. WILL AWAIT CALLBACK.
--- NOTE | 2016-12-16 13:46 | NUR ---
RECEIVED CALLBACK FROM SHANA TAVERAS. INFORMED HER THAT PTS ORDER TO OBTAIN CONSENT DID NOT SPECIFY. SHANA TAVERAS NP STATES SHE PUT ORDER IN UNDER WRONG PT. PT IS TO NOT GO FOR PROCEDURE AT THIS TIME. ORDER D/C PER SHANA TAVERAS NP.
--- NOTE | 2016-12-16 13:57 | NUR ---
Rehab Note- Acute Rehab Order received. Spoke with he sara. Stated he didn't want to come to rehab. The patient is noted not to have been participating with therapy. CM noted the pateint's plan to discharge to [facility], would recommend following that discharge plan of care. Thank you for this referral! Heather Campos RN Clinical Liaison, [facility] Rehab
--- NOTE | 2016-12-16 14:23 | NUR ---
Carafate given per request of assigned nurse.
[2016-12-16 16:12] VITALS: BP 188/81
--- NOTE | 2016-12-16 18:41 | NUR ---
PT IS SITTING UP IN BED WITH EYES OPEN RESTING. SON (MICHAEL) GUS WAS JUST RECENTLY HERE. REE PHONE NUMBER RECIEVED. PT IS LESS AGITATED HE WAS EARLIER ON SHIFT. BED IS IN LOW POSITION, SIDE RAILS ARE UP X2, AND CALL LIGHT IS IN REACH. WILL CONTINUE TO MONITOR.
--- NOTE | 2016-12-16 18:51 | NUR ---
1830- PT IS CURRENTLY SITTING UP IN BED WITH EYES OPEN RESTING. CAREGIVER IS AT BEDSIDE. NO NEED AT THIS CURRENT TIME. WILL CONTINUE TO MONITOR.
--- NOTE | 2016-12-16 19:20 | NUR ---
PT RESTING IN BED. MO ALARM SOUNDING BUT PT NOT MOVING. RESET ALARM. PT DENIES ANY NEEDS. STATES HE JUST WANTS SOME REST. PT RESPIRATIONS EVEN AND UNLABORED. BED LOW AND CALL LIGHT WITHIN REACH. WILL CPOC
[2016-12-16 20:00] VITALS: BP 183/74
[2016-12-17] VITALS: BP 178/76
--- NOTE | 2016-12-17 01:41 | NUR ---
PT ASLEEP. RESPIRATIONS EVEN AND UNLABORED. NO S/S OF DISTRESS. BED LOW AND CALL LIGHT WITHIN REACH. MO ALARM ACTIVE. WILL CPOC
[2016-12-17 04:00] VITALS: BP 177/25
--- NOTE | 2016-12-17 06:06 | NUR ---
PT RESTING IN BED. NEW GAUZE AND TAPE WITH TRIPLE ANTIBIOTIC PUT UNDER LEFT ARM AXILLARY AREA. PT DENIES ANY NEEDS. NO S/S OF DISTRESS. BED LOW AND CALL LIGHT WITHIN REACH. MO ALARM ON AND ACTIVE. WILL CPOC
[2016-12-17 06:28] LABS: BASOPHILS 0.3 % (0-2); EOSINOPHILS 6.1 % (0-7); HEMATOCRIT 32.2 % (42.0-54.0); HEMOGLOBIN 10.2 g/dL (13.5-17.5); MCH 31.5 pg (26.0-34.0); MCHC 31.7 g/dL (31.0-37.0); MCV 99.4 fL (80.0-100.0); MEAN PLATELET VOLUME 10.3 fL (7.4-10.4); MONOCYTES 8.7 % (2-11); NEUTROPHILS 69.9 % (40-80); PLATELET COUNT 278 10x3/uL (130-400); RBC 3.24 10x6/uL (4.20-6.10); RDW 15.1 % (11.5-14.5); WBC 8.7 10x3/uL (4.8-10.8)
[2016-12-17 06:47] LABS: ALBUMIN 2.3 g/dL (3.4-5.0); BILIRUBIN - TOTAL 0.3 mg/dL (0.2-1.3); CALCIUM 8.7 mg/dL (8.5-10.1); CARBON DIOXIDE 25.7 mmol/L (21.0-32.0); POTASSIUM - SERUM 3.7 mmol/L (3.5-5.1); PROTEIN - SERUM 6.1 g/dL (6.4-8.2); VANCOMYCIN - RANDOM 15.3 ug/mL (10.0-20.0)
[2016-12-17 06:48] LABS: CREATININE - SERUM 5.9 mg/dL (0.6-1.3)
--- NOTE | 2016-12-17 07:30 | NUR ---
REPORT RECIEVED. RR EVEN AND UNLABORED. PT ASLEEP. BED IN LOWEST POSTION, CALL LR IN REACH, WILL CTM.
[2016-12-17 08:00] VITALS: BP 136/66
[2016-12-17] MEDS ORDERED: SENOKOT-S TABLE1 TAB PO (08:13)
[2016-12-17] MEDS ORDERED: MIRALAX17 GM PO (08:13)
[2016-12-17] MEDS ORDERED: CARAFATE1 G/10 ML PO (08:13)
[2016-12-17] MEDS ORDERED: NEOSPORIN OINTM15 GM TOPICAL (08:14)
[2016-12-17] MEDS ORDERED: GEODON20 MG PO (08:14)
[2016-12-17] MEDS ORDERED: ATIVAN0.5 MG PO (08:15)
[2016-12-17 12:00] VITALS: BP 169/75
--- NOTE | 2016-12-17 13:47 | NUR ---
Patient Name: MINNIE ACEVEDO Encounter No: [id number] : 1945 Primary Insurance: MEDICARE A & B Anticipated DC Date: 12-17-2016 Planned Disposition: Fdc Facility External Planned Provider: [facility], MEDICARE REHAB BED DCP follow-up note: CM RECEIVED DISCHARGE ORDER, MET WITH PT IN ROOM TO DISCUSS DISCHARGE PLAN AND NEEDS. PT REPORTS HE NEEDS REHAB AND WILL RETURN TO [facility]. CM DISCUSSED NEW DIAGNOSIS OF MAJOR DEPRESSION AND PT'S BEHAVIOR OF THROWING FECES. PT DOES NOT REMEMBER THROWING FECES AND DOES NOT THINK HE IS DEPRESSED. PT WOULD LIKE TO DISCHARGE TO [facility] TO CONTINUE REHAB WITH GOAL OF GETTING HOME WITH HIS CAREGIVER AFTER REHAB. PT ASSISTED WITH COMPLETING RUFUS SCREENING FORM AND PROVIDED SIGNATURE. IMPORTANT MESSAGE FROM MEDICARE PROVIDED AND EXPLAINED. PT DENIES NEED FOR CM TO CALL HIS CAREGIVER, CONCHITA; PT REPORTS CONCHITA IN AGREEMENT WITH PT FOR CONTINUED REHAB AT [facility] WHERE PT REPORTS HE IS RECEIVING GOOD CARE. CM CALLED AND SPOKE TO DR. KEBEDE WHO IS NOT AVAILABLE FOR RUFUS SIGNATURE AND ASKED THAT DR. PITTMAN BE ASKED WHEN HE ARRIVES TODAY. DR. PITTMAN ARRIVED AND PROVIDED SIGNATURE. CM FAXED RUFUS ASSESSMENT WITH SUPPORTING DOCUMENTS TO [employer] AT [phone]. CM CALLED [employer] AND [employer], , LEFT TELEPHONE MESSAGE NOTIFYING OF RUFUS SCREENING NEED. CM RECEIVED CALL FROM SAIMA OF THE [facility], [facility] WILL NOT ACCEPT PT BACK ON CARMEN, [employer] CUTTER HELPER NOTIFIED. CM WAITING RENAL NURSE PRACTITIONER TO ADDRESS MEDICATIONS. [facility] WILL ACCEPT WITH RUFUS APPROVAL. CM WAITING RUFUS APPROVAL AND CLARIFICATION OF MEDICATION - CARMEN. Herminio Bowman, CASE MANAGEMENT
--- NOTE | 2016-12-17 14:08 | CN ---
PATIENT NAME:MINNIE ACEVEDO MEDICAL RECORD: [id number] : [birth year] LOCATION:D.M2 D.2137 ADMIT DATE: 12/09/16 ACCOUNT: [id number] CONSULTING PHYSICIAN: MARIAJOSE ANDREWS MD REFERRING PHYSICIAN: MISSY COLIN MD DATE OF CONSULTATION: 12/11/2016 IDENTIFYING DATA: The patient is 71 years old and he is admitted to the hospital on a voluntary basis. CHIEF COMPLAINT: Confusion. HISTORY OF PRESENT ILLNESS: The patient is a very nice man who is in a very bad situation. He is admitted for possible upper GI bleed along with some cellulitis associated with a fistula placement. The patient apparently lives in a retirement. He has had a stroke in the past. He is also in renal failure, diabetic and hypertensive. He endorses numerous neurovegetative depressive symptoms, but denies psychotic symptoms. He says he does not want to hurt himself. He says he thinks he has memory impairment and trouble thinking clearly, but really cannot elaborate on this. MENTAL STATUS EXAMINATION: The patient is awake, alert and oriented to person, place and time and somewhat to situation. His mood is flat. His affect is constricted. Thought processes are circumstantial and he has moderate impairment of his memory, concentration and abstraction abilities. ASSESSMENT: 1. Vascular dementia. 2. Major depression. PLAN: The patient at this time shows no evidence of behavior problems that would necessitate confinement to a behavioral unit. He is denying thoughts of self-harm or harming others. He clearly has evidence of cognitive impairment. I think it is reasonable to start him on an antidepressant medication and I would also recommend following up with an increase in this medication as well as starting a cholinesterase inhibitor. His correction prognosis is obviously poor given his multiple medical problems, stroke and current lack of any kind of psychosocial support. TRANSINT:[id number] Voice Confirmation ID: [id number] DOCUMENT ID: [id number] MARIAJOSE ANDREWS MD at 1408 CC: [id number] DICTATION DATE: 12/11/16 1424 HOT CELL TECHNICIAN: 12/11/16 1725 [place] [address]
--- NOTE | 2016-12-17 17:31 | NUR ---
Patient Name: MINNIE ACEVEDO Encounter No: [id number] : 1945 Primary Insurance: MEDICARE A & B Anticipated DC Date: 12-17-2016 Planned Disposition: Retirement Facility External Planned Provider: [facility], MEDICARE REHAB BED DCP follow-up note: RECEIVED RUFUS APPROVAL FOR UP TO 60 DAYS IN INTERMEDIATE FACILITY. NAIMA CALLED SAIMA, CLINICAL LIAISON FOR [facility], , ASKED FOR ADMIT BACK TO [facility] TODAY. CM FAXED DISCHARGE INFORMATION (MEDS AND DISCHARGE ORDER) TO THE [facility] VIA SAIMA AT [phone]. FOR DISCHARGE TO THE [facility], FAX DISCHARGE INSTRUCTIONS TO THE [facility] AT [phone]; NURSE REPORT TO BE CALLED TO THE [facility] AT [phone]. THE [facility] TO ARRANGE VAN TRANSPORATION. DAYSI HIGGNIS, CASE MANAGEMENT
--- NOTE | 2016-12-17 18:16 | NUR ---
PT DISCHARGED. CALLED REPORT TO [facility]. IV CATHETER REMOVED WITH CATHETER TIP INTACT. GAVE D/C INSTRUCTIONS TO TRANSPORT STAFF. WILL CTM UNTIL VAN ARRIVES.
--- NOTE | 2016-12-17 18:35 | NUR ---
[facility] TRANSPORT HERE FOR PT CLAY THROWER. GAVE D/C INSTRUCTIONS TO TRANSPORTER.
[2016-12-18] MEDS ORDERED: TUMS500 MG PO (22:26)
[2016-12-18] MEDS ORDERED: ULTRAM50 MG PO (22:27)
[2016-12-18] MEDS ORDERED: GEODON20 MG PO (22:29)
[2016-12-18] MEDS ORDERED: FUROSEMIDE40 MG PO (22:30)
[2016-12-18] MEDS ORDERED: HUMULIN N100 U/ML (22:30)
== END 2016-12-17 18:43 | DRG 380 ==
LOC: D.ER 01:38 → D.M2 04:20
PROVIDERS: Family Medicine; Internal Medicine Gastroenterology; ADMIT Internal Medicine
PROC: 0DB98ZX Excision of Duodenum, Via Natural or Artificial Opening Endoscopic, Diagnostic (ICD-10-PCS; 2016-12-11)
PROC: 0DB68ZX Excision of Stomach, Via Natural or Artificial Opening Endoscopic, Diagnostic (ICD-10-PCS; 2016-12-11)
PROC: 0DB58ZX Excision of Esophagus, Via Natural or Artificial Opening Endoscopic, Diagnostic (ICD-10-PCS; 2016-12-11)
PROC: 5A1D60Z (ICD-10-PCS; principal; 2016-12-11 14:45)
DX: K22.10 Ulcer of esophagus without bleeding (principal); N18.6 End stage renal disease; L03.114 Cellulitis of left upper limb; D62 Acute posthemorrhagic anemia; I12.0 Hypertensive chronic kidney disease with stage 5 chronic kidney disease or end stage renal disease; K92.0 Hematemesis; D63.1 Anemia in chronic kidney disease; E11.22 Type 2 diabetes mellitus with diabetic chronic kidney disease; Z99.2 Dependence on renal dialysis; K29.70 Gastritis, unspecified, without bleeding; K44.9 Diaphragmatic hernia without obstruction or gangrene; K29.80 Duodenitis without bleeding; K22.70 Barrett's esophagus without dysplasia; I69.919 Unspecified symptoms and signs involving cognitive functions following unspecified cerebrovascular disease; F01.50 Vascular dementia, unspecified severity, without behavioral disturbance, psychotic disturbance, mood disturbance, and anxiety; F32.9 Major depressive disorder, single episode, unspecified

== ENCOUNTER 2016-12-18 16:49 | Inpatient (IN) | payer MEDICARE ==
[~2016-12-18] VITALS: Ht 170.2 cm; Wt 64.5 kg
[~2016-12-18 16:49] MED LIST changes: +CARAFATE1 G/10 ML PO; +FUROSEMIDE40 MG PO; +GEODON20 MG PO; +MIRALAX17 GM PO; +NEOSPORIN OINTM15 GM TOPICAL; +SENOKOT-S TABLE1 TAB PO
[2016-12-18 18:28] LABS: APTT 22.6 SECONDS (22.8-39.4)
[2016-12-18 18:36] LABS: ALBUMIN 2.2 g/dL (3.4-5.0); BILIRUBIN - TOTAL 0.5 mg/dL (0.2-1.3); CALCIUM 8.8 mg/dL (8.5-10.1); CARBON DIOXIDE 25.4 mmol/L (21.0-32.0); PROTEIN - SERUM 5.6 g/dL (6.4-8.2)
[2016-12-18 18:38] LABS: POTASSIUM - SERUM 5.4 mmol/L (3.5-5.1)
[2016-12-18 19:00] LABS: BASOPHILS 0.3 % (0-2); EOSINOPHILS 6.2 % (0-7); HEMATOCRIT 32.8 % (42.0-54.0); HEMOGLOBIN 10.5 g/dL (13.5-17.5); IMMATURE GRANULOCYTES 1.2 % (0-5); LYMPHOCYTES 15.2 % (15-50); MCH 31.4 pg (26.0-34.0); MCV 98.2 fL (80.0-100.0); MEAN PLATELET VOLUME 10.4 fL (7.4-10.4); MONOCYTES 13.5 % (2-11); NEUTROPHILS 63.6 % (40-80); PLATELET COUNT 296 10x3/uL (130-400); RBC 3.34 10x6/uL (4.20-6.10); RDW 15.1 % (11.5-14.5); WBC 7.8 10x3/uL (4.8-10.8)
--- NOTE | 2016-12-18 22:14 | NUR ---
PT RECEIVED FROM ER, [facility] LAVF-NOT MUTURE, L,ARM SWOLLEN, [facility], PT IS A&O, DENIES ANY NEEDS AT THIS TIME, BED IS LOW, SRX2, CALL LIGHT IN REACH, WILL CONTINUE PLAN OF CARE
[2016-12-18] MEDS ORDERED: TUMS500 MG PO (22:26)
[2016-12-18] MEDS ORDERED: ULTRAM50 MG PO (22:27)
[2016-12-18] MEDS ORDERED: GEODON20 MG PO (22:29)
[2016-12-18] MEDS ORDERED: HUMULIN N100 U/ML (22:30)
[2016-12-18] MEDS ORDERED: FUROSEMIDE40 MG PO (22:30)
[2016-12-19] VITALS (7 sets, daily range): BP systolic 134–156; BP diastolic 46–79; Ht 170.2 cm; Wt 64.5 kg
--- NOTE | 2016-12-19 05:10 | NUR ---
PT IS SLEEPING, BED IS LOW, SRX2, BED ALARM IS ON, CALL LIGHT IN REACH, WILL CONTINUE TO MONITOR
--- NOTE | 2016-12-19 07:30 | NUR ---
REPORT RECIEVED. PT RESTING QUIETLY RR EVEN AND UNLABORED. PLACED NAME ON WHITE BOARD, BED IN LOWEST POSTION, CALL LR IN REACH, WILL CTM.
[2016-12-19 08:29] LABS: BASOPHILS 0.4 % (0-2); EOSINOPHILS 4.5 % (0-7); HEMATOCRIT 32.3 % (42.0-54.0); HEMOGLOBIN 10.4 g/dL (13.5-17.5); IMMATURE GRANULOCYTES 0.8 % (0-5); LYMPHOCYTES 11.6 % (15-50); MCH 31.7 pg (26.0-34.0); MCHC 32.2 g/dL (31.0-37.0); MCV 98.5 fL (80.0-100.0); MEAN PLATELET VOLUME 10.3 fL (7.4-10.4); MONOCYTES 10.2 % (2-11); NEUTROPHILS 72.5 % (40-80); PLATELET COUNT 300 10x3/uL (130-400); RBC 3.28 10x6/uL (4.20-6.10); RDW 15.2 % (11.5-14.5); WBC 9.3 10x3/uL (4.8-10.8)
[2016-12-19 08:40] LABS: ANION GAP 15.7 mmol/L (8-16); CALCIUM 8.8 mg/dL (8.5-10.1); CARBON DIOXIDE 20.6 mmol/L (21.0-32.0); CREATININE - SERUM 7.3 mg/dL (0.6-1.3); VANCOMYCIN - RANDOM 24.6 ug/mL (10.0-20.0)
[2016-12-19 08:41] LABS: POTASSIUM - SERUM 4.3 mmol/L (3.5-5.1)
--- NOTE | 2016-12-19 13:45 | NUR ---
STARTED 20G IV IN RIGHT WRIST X2 STICK. CURRENTLY RUNNING ZOSYN THROUGH IV. HEMOSPLIT NO LONGER RUNNING FLUIDS, CHANGED HEMOSPLIT DRESSING, STERILE TECHNIQUE MAINTAINED. DRESSING APPLIED TO UPPER LEFT ARM WOUND, CLEANSED WITH WOUND CLEANSER, APPLIED WITH 4X4 AND TAPE. WILL CTM.
--- NOTE | 2016-12-19 18:09 | NUR ---
PT RESTING QUIELTY, EATING DINNER. RR EVEN AND UNLABORED. PT DENIES PAIN AND NEEDS AT THIS TIME, WILL GIVE REPORT ON PT CONDITION FOR THE DAY.
--- NOTE | 2016-12-19 19:33 | NUR ---
RECEIVED REPORT, WILL ASSUME CARE OF PT, PT LAYING QUIETLY, DENIES ANY NEEDS AT THIS TIME, SCD ARE ON, BED IS LOW, SRX2, BED ALARM IS ON, CALL LIGHT IN REACH, WILL CONTINUE PLAN OF CARE
[2016-12-20] VITALS: BP 155/52
--- NOTE | 2016-12-20 00:13 | NUR ---
[id number] GAVE 4UNITS OF HUMALOG
[2016-12-20 04:00] VITALS: BP 186/52
--- NOTE | 2016-12-20 04:14 | NUR ---
ASSESSMENT COMPLETE, SEE FLOWSHEET, PT SLEEPING, BED IS LOW, SRX3, BED ALARM IS ON, CALL LIGHT IN REACH, WILL CONTINUE TO MONITOR
[2016-12-20 05:34] LABS: BASOPHILS 0.2 % (0-2); EOSINOPHILS 3.2 % (0-7); HEMATOCRIT 29.1 % (42.0-54.0); HEMOGLOBIN 9.6 g/dL (13.5-17.5); IMMATURE GRANULOCYTES 0.5 % (0-5); MCH 31.9 pg (26.0-34.0); MCV 96.7 fL (80.0-100.0); MEAN PLATELET VOLUME 10.4 fL (7.4-10.4); NEUTROPHILS 76.1 % (40-80); PLATELET COUNT 265 10x3/uL (130-400); RBC 3.01 10x6/uL (4.20-6.10); RDW 15.5 % (11.5-14.5); WBC 8.8 10x3/uL (4.8-10.8)
[2016-12-20 05:52] LABS: ANION GAP 16.6 mmol/L (8-16); CARBON DIOXIDE 23.3 mmol/L (21.0-32.0); PHOSPHOROUS 3.2 mg/dL (2.5-4.9); POTASSIUM - SERUM 3.9 mmol/L (3.5-5.1); VANCOMYCIN - RANDOM 23.2 ug/mL (10.0-20.0)
--- NOTE | 2016-12-20 07:35 | NUR ---
ASSESSMENT COMPLETED. LEFT CHEST HEMOSPLIT. RIGHT WRIST WITH NS AT KVO. CELLULITIS TO LEFT ARM. PT GOING TO DIALYSIS TODAY
[2016-12-20 09:31] VITALS: BP 146/66
--- NOTE | 2016-12-20 18:26 | NUR ---
Patient Name: MINNIE ACEVEDO Admission Status: ER Accout number: [id number] Admission Date: 12-18-2016 : 1945 Admission Diagnosis:INFECT/INFLM REACT D/T OTH CARDI/VASC DEV/IMPLNT/GRFT, Attending: LAURA Current LOS: 2 Anticipated DC Date: Planned Disposition: Snf Facility Primary Insurance: MEDICARE A & B PLANNED EXTERNAL PROVIDER: [facility], MEDICARE REHAB BED Discharge Planning Comments: * Is the patient Alert and Oriented? Yes 0 * How many steps to enter\\exit or inside your home? NONE 0 * PCP [facility] 0 * Pharmacy [facility] 0 * Preadmission Environment Snf Facility 0 * [facility] * ADLs Partial Dependent 0 * Partial ADLs (Assistance needed) Ambulation Bathing Dressing Medication Management Toileting Transfers 0 * Equipment Other 0 * Other Equipment ALL MEDICAL EQUIPMENT PROVIDED BY FACILITY 0 * List name and contact numbers for known caregivers / representatives who currently or will assist patient after discharge: DAYSI ARANGO, CAREGIVER, 0 * Community resources currently utilized None 0 * Please name any agencies selected above. NONE 0 * Additional services required to return to the preadmission environment? No 0 * Can the patient safely return to the preadmission environment? Yes 0 * Has this patient been hospitalized within the prior 30 days at any hospital? Yes 0 CM MET WITH PT IN ROOM TO DISCUSS DISCHARGE PLANNING AND NEEDS. PT REPORTS HE WILL BE GOING BACK TO REHAB. CM ASKED IF HE IS GETTING GOOD CARE AT [facility], PT REPORTS HE IS IN REHAB AND GOOD CARE AT "THE REHAB." CM WILL VERIFY PT'S REHAB BED STATUS WITH SAIMA CLINCAL LIAISON OF [facility]. FOR DISCHARGE TO THE [place] AND [facility], FAX DISCHARGE INSTRUCTIONS TO THE [facility] AT [phone]; NURSE REPORT TO BE CALLED TO THE [facility] AT [phone]. [facility] TO ARRANGE VAN TRANSPORATION. DAYSI HIGGINS, CASE MANAGEMENT
[2016-12-20 20:00] VITALS: BP 160/63
--- NOTE | 2016-12-20 20:29 | NUR ---
SHIFT ASSESSMENT COMPLETE. PT IS CONFUSED AT THIS TIME. HE REORIENTS EASILY. PT IS EATING A BANANA AT THIS TIME. PERRLA, 3 MM, BRISK REACTION TO LIGHT. PT IS ON ROOM AIR. S1S2 AUDIBLE. RADIAL AND PEDAL PULSES PALP. HEMESPILT IN L CHEST, DRESSING CDI. L ARM BANDAGE CDI. UPPER ARM IS SLIGHTLY PINK. ABD IS SOFT, NON-TENDER TO TOUCH. CLEANED UP PT'S ROOM AND TURNED AIR UP PER REQUEST. ZOSYN INFUSING AT THIS TIME VIA R FOREARM PIV. PT DENIES ANY REQUESTS. WILL CONT WITH POC.
[2016-12-21] VITALS: BP 106/65
--- NOTE | 2016-12-21 | NUR ---
CHECKED PT'S BLOOD SUGAR 256. ADMINISTERED 4 UN PER SLIDING SCALE. HE DENIES ANY REQUESTS AT THIS TIME. WILL CONT WITH POC.
--- NOTE | 2016-12-21 02:00 | NUR ---
ZOSYN INFUSING. NO REQUESTS AT THIS TIME. WILL CONT TO MONITOR.
[2016-12-21 04:00] VITALS: BP 132/62
[2016-12-21 04:59] LABS: BASOPHILS 0.2 % (0-2); EOSINOPHILS 2.4 % (0-7); HEMATOCRIT 27.4 % (42.0-54.0); IMMATURE GRANULOCYTES 0.5 % (0-5); LYMPHOCYTES 7.8 % (15-50); MCH 32.3 pg (26.0-34.0); MCHC 32.8 g/dL (31.0-37.0); MCV 98.2 fL (80.0-100.0); MONOCYTES 10.2 % (2-11); NEUTROPHILS 78.9 % (40-80); PLATELET COUNT 242 10x3/uL (130-400); RBC 2.79 10x6/uL (4.20-6.10); RDW 15.9 % (11.5-14.5); WBC 10.8 10x3/uL (4.8-10.8)
[2016-12-21 05:16] LABS: ANION GAP 11.5 mmol/L (8-16); CALCIUM 8.6 mg/dL (8.5-10.1); CARBON DIOXIDE 27.9 mmol/L (21.0-32.0); CREATININE - SERUM 5.4 mg/dL (0.6-1.3); PHOSPHOROUS 2.2 mg/dL (2.5-4.9); POTASSIUM - SERUM 3.4 mmol/L (3.5-5.1); VANCOMYCIN - RANDOM 18.1 ug/mL (10.0-20.0)
--- NOTE | 2016-12-21 07:00 | NUR ---
REPORT RECIEVED FROM THE OFF GOING NURSE. PT RESTING IN ROOM WITH EYES CLOSED WITH 0 S/SX OF DISTRESSS/DISCOMFORT NOTED. BREATHING NORMAL AND UNLABORED. LUE DRESSING RED AND A DRESSING NOTED TO BE C/D/I. BRUIT ASCULTATED AND THRILL PALPATED. HAS A HEMOSPLIT TO LEFT UPPER CHEST. DRESSING C/D/I. DURING ASSESSMENT, PT WOKE UP AND WAS ALERT TO PERSON ONLY. HAD A GARBLED SPEECH. DENIES PAIN. BREATHING NORMAL AND UNLABORD. CALL LIGHT INR EACH. WILL CONT PC
[2016-12-21 09:17] VITALS: BP 112/73
--- NOTE | 2016-12-21 10:05 | NUR ---
Patient Name: MINNIE ACEVEDO Encounter No: [id number] : 1945 Primary Insurance: MEDICARE A & B Anticipated DC Date: Planned Disposition: Correction Facility External Planned Provider: [facility], MEDICARE REHAB BED DCP follow-up note: SCM CALLED AND SPOKE TO SAIMA, CLINICAL LIAISON OF [facility], , WHO VERIFIED [facility] WILL ACCEPT PT BACK FOR CONTINUE REHAB AT DISCHARGE. CM FAXED HOSPITAL UPDATE TO [facility] VIA [facility] AT [phone]. FOR DISCHARGE TO [facility], FAX DISCHARGE INSTRUCTIONS TO [facility] AT [phone]; NURSE REPORT TO BE CALLED TO THE [facility] AT [phone]. [facility] TO ARRANGE VAN TRANSPORATION. DAYSI HIGGINS, CASE MANAGEMENT
[2016-12-21 12:01] VITALS: BP 105/69
--- NOTE | 2016-12-21 14:02 | NUR ---
Patient Name: MINNIE ACEVEDO Encounter No: [id number] : 1945 Primary Insurance: MEDICARE A & B Anticipated DC Date: 12-21-2016 Planned Disposition: Fpc Facility External Planned Provider: [facility], MEDICARE REHAB BED DCP follow-up note: CM RECEIVED DISCHARGE ORDERS, CALLED AND SPOKE TO SAIMA, CLINICAL LIAISON OF [facility], , WHO VERIFIED [facility] WILL ACCEPT PT BACK FOR CONTINUE REHAB TODAY. CM FAXED DISCHARGE INFORMATION TO [facility] VIA SAIMA AT [phone]. PT NOTIFIED, IN AGREEMENT WITH DISCHARGE TODAY TO THE [facility], CM OFFERED TO CALL FAMILY, PT DECLINED AND REPORTS THAT HE HAS ALREADY NOTIFIED HIS CAREGIVER, CONCHITA. IMPORTANT MESSAGE FROM MEDICARE PROVIDED AND EXPLAINED. NURSE REPORT TO BE CALLED TO THE [facility] AT [phone]. THE [facility] TO ARRANGE VAN TRANSPORATION. DAYSI HIGGINS, CASE MANAGEMENT
--- NOTE | 2016-12-21 15:49 | NUR ---
[facility] WATER TAXI BOAT MATE HERE TO SUPERVISOR ASSEMBLY ROOM PT. ATTEMPTED TO CALL REPORT TO FACILITY BUT UNABLE TO GET A HOLD OF ANYONE VIA PHONE. PAPER WORK GIVEN TO [facility] WATER TAXI BOAT MATE. PT BREATHING NORMALLY AND UNLABORD. DENIES PAIN. EXCITED ABOUT DC TO FACILITY. LEFT VIA W/C.
--- NOTE | 2016-12-21 15:58 | NUR ---
REPORT CALLED TO [facility]. ONEIL HOLLINGSWORTH TOOK REPORT.
== END 2016-12-21 15:59 | DRG 314 ==
LOC: D.ER 16:49 → D.M2 20:30
PROVIDERS: Emergency Medicine; ADMIT Internal Medicine Nephrology
PROC: 5A1D60Z (ICD-10-PCS; principal; 2016-12-20)
DX: T82.7XXA Infection and inflammatory reaction due to other cardiac and vascular devices, implants and grafts, initial encounter (principal); N18.6 End stage renal disease; I12.0 Hypertensive chronic kidney disease with stage 5 chronic kidney disease or end stage renal disease; Y83.8 Other surgical procedures as the cause of abnormal reaction of the patient, or of later complication, without mention of misadventure at the time of the procedure; E11.22 Type 2 diabetes mellitus with diabetic chronic kidney disease; Z99.2 Dependence on renal dialysis; E11.40 Type 2 diabetes mellitus with diabetic neuropathy, unspecified; D63.1 Anemia in chronic kidney disease; E87.5 Hyperkalemia; F03.90 Unspecified dementia, unspecified severity, without behavioral disturbance, psychotic disturbance, mood disturbance, and anxiety; Z86.73 Personal history of transient ischemic attack (TIA), and cerebral infarction without residual deficits

== ENCOUNTER 2016-12-25 06:45 | Emergency (ER) | payer MEDICARE ==
[2016-12-19 09:55] VITALS: BMI 22.2
[~2016-12-25 06:45] MED LIST changes: +HUMULIN N100 U/ML; +ULTRAM50 MG PO
[2016-12-25 07:50] LABS: BASOPHILS 0.2 % (0-2); EOSINOPHILS 1.7 % (0-7); HEMATOCRIT 33.2 % (42.0-54.0); HEMOGLOBIN 10.6 g/dL (13.5-17.5); IMMATURE GRANULOCYTES 0.5 % (0-5); LYMPHOCYTES 9.1 % (15-50); MCH 31.9 pg (26.0-34.0); MCHC 31.9 g/dL (31.0-37.0); MEAN PLATELET VOLUME 10.6 fL (7.4-10.4); MONOCYTES 6.6 % (2-11); NEUTROPHILS 81.9 % (40-80); PLATELET COUNT 241 10x3/uL (130-400); RBC 3.32 10x6/uL (4.20-6.10); RDW 15.8 % (11.5-14.5); WBC 12.6 10x3/uL (4.8-10.8)
[2016-12-25 08:05] LABS: ALBUMIN 2.7 g/dL (3.4-5.0); ANION GAP 13.5 mmol/L (8-16); BILIRUBIN - TOTAL 0.34 mg/dL (0.2-1.3); CALCIUM 9.7 mg/dL (8.5-10.1); CARBON DIOXIDE 28.7 mmol/L (21.0-32.0); CREATININE - SERUM 5.9 mg/dL (0.6-1.3); POTASSIUM - SERUM 4.2 mmol/L (3.5-5.1); PROTEIN - SERUM 7.2 g/dL (6.4-8.2)
== END 2016-12-25 09:35 | disposition home or self-care (01) ==
LOC: D.ER 06:45
PROVIDERS: Emergency Medicine; Family Medicine
DX: R11.10 Vomiting, unspecified (principal); D64.9 Anemia, unspecified; I12.9 Hypertensive chronic kidney disease with stage 1 through stage 4 chronic kidney disease, or unspecified chronic kidney disease; N18.9 Chronic kidney disease, unspecified; K21.9 Gastro-esophageal reflux disease without esophagitis

== ENCOUNTER 2017-01-05 16:43 | Emergency (ER) | payer MEDICARE | END 2017-01-05 17:48 | disposition home or self-care (01) | LOC: D.ER 16:43 | DX: T82.898A Other specified complication of vascular prosthetic devices, implants and grafts, initial encounter (principal); L03.112 Cellulitis of left axilla; L03.114 Cellulitis of left upper limb; I12.9 Hypertensive chronic kidney disease with stage 1 through stage 4 chronic kidney disease, or unspecified chronic kidney disease; N18.9 Chronic kidney disease, unspecified; K21.9 Gastro-esophageal reflux disease without esophagitis ==

== ENCOUNTER 2017-01-07 10:44 | Inpatient (IN) | payer MEDICARE ==
[~2017-01-07] VITALS: Ht 170.2 cm; Wt 62.0 kg
--- NOTE | ~2017-01-07 | OP ---
PATIENT NAME: MINNIE ACEVEDO MEDICAL RECORD: [id number] :[birth year] LOCATION:D.M2 D.2104 ADMISSION DATE:01/07/17 SURGEON: TRISHA ALEJANDRO MD DATE OF OPERATION: 01/08/2017 PREOPERATIVE DIAGNOSES: 1. End-stage renal disease. 2. Diabetes mellitus. 3. Cardiomyopathy. POSTOPERATIVE DIAGNOSES: 1. End-stage renal disease. 2. Diabetes mellitus. 3. Cardiomyopathy. PROCEDURE: 1. Right IJ 19 cm HemoSplit catheter placement. 2. Fluoroscopic interpretation. SURGEON: Trisha Alejandro MD REPORT OF PROCEDURE: The patient's right neck was prepped and draped in sterile fashion. Using ultrasound guidance, a needle was used to cannulate the right internal jugular vein and the guidewire was advanced with ease. Fluoro was used to note that the wire was in good position in the venous system. A skin incision was made on the patient's right lateral chest and the catheter was tunneled between this incision and the wire exit site. Multiple dilators were placed over the wire under fluoroscopic guidance followed by the dilator trocar device. The dilator and wire were removed and the catheter tip was advanced through the trocar with ease. The trocar was removed at this point. The catheter tips were pulled back until they rest in good position at the right atrial superior vena caval junction. The catheter aspirated nonpulsatile dark blood and flushed easily with heparinized saline. We then flushed it with 2 cc of 1000 per cc hep flush into both leads. The catheter was then sutured into place with 2-0 Prolenes and the skin incisions were closed with subcutaneous 5-0 Monocryl. COMPLICATIONS: None. CONDITION: Stable. ANESTHESIA: General endotracheal. BLOOD LOSS: Minimal. TRANSINT:[id number] Voice Confirmation ID: [id number] DOCUMENT ID: [id number] OPERATIVE REPORT [id number] MINNIE ACEVEDO TRISHA BROWNING MD CC: [id number] DICTATION DATE: 01/08/171848 INDUSTRIAL GAS SERVICER HELPER: 01/08/172115 ADM IN [facility] [address] [place] [address]
[~2017-01-07 10:44] MED LIST changes: -HUMULIN N100 U/ML; +HUMULIN N100 U/ML SC
[2017-01-07 11:49] LABS: BASOPHILS 0.3 % (0-2); EOSINOPHILS 7.2 % (0-7); HEMATOCRIT 24.1 % (42.0-54.0); HEMOGLOBIN 7.6 g/dL (13.5-17.5); IMMATURE GRANULOCYTES 0.3 % (0-5); LYMPHOCYTES 21.5 % (15-50); MCH 31.5 pg (26.0-34.0); MCHC 31.5 g/dL (31.0-37.0); MEAN PLATELET VOLUME 8.9 fL (7.4-10.4); MONOCYTES 11.2 % (2-11); NEUTROPHILS 59.5 % (40-80); PLATELET COUNT 214 10x3/uL (130-400); RBC 2.41 10x6/uL (4.20-6.10); RDW 15.5 % (11.5-14.5); WBC 5.9 10x3/uL (4.8-10.8)
[2017-01-07 12:07] LABS: ANION GAP 9.5 mmol/L (8-16); CALCIUM 8.4 mg/dL (8.5-10.1); CARBON DIOXIDE 29.7 mmol/L (21.0-32.0); CREATININE - SERUM 6.5 mg/dL (0.6-1.3); POTASSIUM - SERUM 3.2 mmol/L (3.5-5.1)
[2017-01-07 12:09] LABS: INR 1.04 (0.85-1.17); PROTIME 13.4 SECONDS (11.6-15.0)
[2017-01-07 12:53] VITALS: BP 154/63; BMI 27.4
--- NOTE | 2017-01-07 14:12 | NUR ---
PT IN BED WITH NO NEEDS AT THIS TIME. TRYING TO GAIN IV ACCESS AT THIS TIME. WILL CONTINUE OT MONITOR
[2017-01-07 16:00] VITALS: BP 167/65
--- NOTE | 2017-01-07 18:00 | NUR ---
PAGED DR. ALEJANDRO TWICE. RENAL GROUP ORDER A HEMOSPLIT PLACEMENT FOR TOMORROW. WAITING CALL BACK. WILL CONTINUE TO MONITOR
[2017-01-07 19:00] VITALS: BP 145/59
--- NOTE | 2017-01-07 20:54 | NUR ---
PT LYING IN BED, AWAKE, ALERT, MILDLY CONFUSED. PT DENIES ANY NEEDS. PT PULLED OUT HIS IV DURING SHIFT CHANGE/SHIFT REPORT. WILL ATTEMPT TO RESITE. CONTINUE TO MONITOR CLOSELY. BED LOW, CALL LIGHT IN REACH, SIDE RAILS X 2, HOB 30-35 DEGREES.
[2017-01-08] VITALS: BP 147/61
--- NOTE | 2017-01-08 00:23 | NUR ---
IV RESITED IN PTS RIGHT FOREARM BY MILLICENT GUERRA. PT RESTING COMFORTABLY AT THIS TIME, EASILY ROUSABLE TO VERBAL STIMULI, DENIES ANY NEEDS. CONTINUE TO MONITOR PT CLOSELY. BED LOW, CALL LIGHT IN REACH, SIDE RAILS X 2, HOB 30 DEGREES, MO MAT UNDER PT PROPERLY, ON AND FUNCTIONING.
[2017-01-08 04:00] VITALS: BP 180/73
--- NOTE | 2017-01-08 06:14 | NUR ---
HIBICLENS BED BATH GIVEN, LINENS AND GOWN CHANGED.
[2017-01-08 06:22] LABS: BASOPHILS 0.5 % (0-2); EOSINOPHILS 7.1 % (0-7); HEMATOCRIT 26.1 % (42.0-54.0); HEMOGLOBIN 8.2 g/dL (13.5-17.5); IMMATURE GRANULOCYTES 0.4 % (0-5); LYMPHOCYTES 26.6 % (15-50); MCH 31.2 pg (26.0-34.0); MCHC 31.4 g/dL (31.0-37.0); MCV 99.2 fL (80.0-100.0); MEAN PLATELET VOLUME 9.6 fL (7.4-10.4); MONOCYTES 10.1 % (2-11); NEUTROPHILS 55.3 % (40-80); RBC 2.63 10x6/uL (4.20-6.10); RDW 15.6 % (11.5-14.5); WBC 5.5 10x3/uL (4.8-10.8)
[2017-01-08 06:31] LABS: PLATELET COUNT 264 10x3/uL (130-400)
[2017-01-08 06:40] LABS: ANION GAP 11.9 mmol/L (8-16); CALCIUM 8.5 mg/dL (8.5-10.1); CARBON DIOXIDE 26.7 mmol/L (21.0-32.0); CREATININE - SERUM 7.2 mg/dL (0.6-1.3); POTASSIUM - SERUM 3.6 mmol/L (3.5-5.1); VANCOMYCIN - RANDOM 5.2 ug/mL (10.0-20.0)
--- NOTE | 2017-01-08 07:51 | NUR ---
AM ROUNDS - PT IN BED ASLEEP AT THIS TIME. PT IS NPO FOR A PROCEDURE TODAY. MONITOR SHOWING SR, HR 80. NON SKID SOCKS ON. CALL LR IN USE/REACH. SIDE RAILS UP X2. BED AT LOWEST POSITION. IV TO RIGHT FA, SL. PT IS ON ROOM AIR. WILL CONTINUE TO MONITOR
[2017-01-08 08:00] VITALS: BP 175/69
[2017-01-08 08:55] VITALS: Ht 170.2 cm; Wt 62.0 kg
--- NOTE | 2017-01-08 09:44 | NUR ---
NIGHT NURSE DID NOT WANT TO GIVE INSULIN BECAUSE PT WAS NPO. BLOOD SUGAR WAS 188. WILL CONITNUE TO MONITOR
--- NOTE | 2017-01-08 09:45 | NUR ---
LATE NOTE - 01/07/17 5601 - WENT TO HAND VANCOMYCIN IV AND PT'S IV WAS OUT. NIGHT NURSE NOTIFIED ABOUT IV OUT AND VANCOMYCIN ON IV POLE.
--- NOTE | 2017-01-08 10:14 | NUR ---
Dialysis Coordinator: [facility]: [facility] TTS 6:20am. KARIN JETT.
--- NOTE | 2017-01-08 11:32 | NUR ---
PT DOES NOT HAVE A POA ON FILE, ONLY AND EMERGENCY CONTACT. SPOKE WITH RETAIL DIRECTOR ABOUT WHO CAN SIGN CONSENTS FOR A SURGICAL PROCEDURE TODAY. RETAIL DIRECTOR INSTRUCTED ME TO CONTACT THE SURGEON AND SEE WHAT THEY WOULD LIKE TO DO. SPOKE WITH DR. GR AND HE SAID THAT THE MATTER IS "LIFE SAVING" AND WILL BE DONE. WILL CONTINUE TO MONITOR
[2017-01-08 11:56] VITALS: BP 183/84
--- NOTE | 2017-01-08 12:15 | NUR ---
PT IS YELLING OUT. HE STATES HE DOES NOT KNOW WHY HE IS YELLING OUT WHEN ASKED. CALL LR IN REACH. REDIRECTED PT TO USE CALL LR IF HE NEEDS ASSISTANCE. WILL CONTINUE TO JAZZ
--- NOTE | 2017-01-08 13:23 | NUR ---
PT LEFT FLOOR VIA BED TO OR FOR PROCEDURE. PREOP MED, ANCEF, SENT WITH PT.
--- NOTE | 2017-01-08 13:29 | NUR ---
PT RETURNED TO FLOOR. UNABLE TO DO PROCEDURE BECAUSE ANOTHER CASE CAME UP. WILL CONTINUE TO MONITOR
--- NOTE | 2017-01-08 13:59 | NUR ---
PLACED SCD ON PT. WILL CONTINUE TO MONITOR
--- NOTE | 2017-01-08 14:30 | NUR ---
Patient Name: MINNIE ACEVEDO Admission Status: Elective Accout number: [id number] Admission Date: 01-07-2017 : 1945 Admission Diagnosis: Attending: Juarez Craft Current LOS: 1 Anticipated DC Date: Planned Disposition: Home with Home Health Primary Insurance: MEDICARE A & B PLANNED EXTERNAL PROVIDER: [facility] Discharge Planning Comments: CM ATTEMPTED TO MEET WITH PT FOR INITIAL ASSESSMENT OF DISCHARGE NEEDS. PT WAS BEING TAKEN TO PROCEDURE AT APPROXIMATELY 1320 HOURS. CM TO ATTEMPT ASSESSMENT OF PT AT A LATER TIME. CM RECEIVED CALL FROM ABI OF [facility] WHO REPORTED THAT PT WAS SCHEDULED FOR [facility] DISCHARGE TOMORROW AND [facility] HAD AGREED TO HOME SERVICES AND WILL REQUIRE NEW HOME HEALTH ORDER FOR DISCHARGE HOME. DR. COLIN WAS THE ORDERING DOCTOR PREVIOUSLY. CM CALLED SAIMA, CLINICAL LIAISON FOR THE [facility], ; SAIMA CONSULTED WITH THE [facility], ADVISED CM THAT PT WILL NOT BE RETURNING TO REHAB AT THE [facility] NURSING AND REHAB. THE [facility] HAS SET UP HOME HEALTH WITH [facility]. PT RECENTLY PULLED OUT HIS CENTRAL LINE AND STATED TO [facility] STAFF THAT HE WANTED TO BLEED TO AND TO LET HIM . [facility] HAD SENT PT TO THE EMERGENCY ROOM AND THE EMERGENCY ROOM CLEARED PT AND SENT BACK TO [facility]. CM WILL MEET WITH PT LATER TO DISCUSS DISCHARGE PLAN; THE [facility] WILL NOT ACCEPT BACK AND PLANNED TO SEND PT HOME WITH [facility]. Rn Pediatric: Herminio Bowman
[2017-01-08 16:00] VITALS: BP 179/72
--- NOTE | 2017-01-08 17:55 | NUR ---
PT LEFT FLOOR FOR PROCEDURE.
--- NOTE | 2017-01-08 19:16 | NUR ---
REPORT RECEIVED FROM LARRY GUERRA IN RECOVERY, PT TOLERATED HEMOSPLIT PLACEMENT WELL, RETURNING TO ROOM SOON.
[2017-01-08 19:33] VITALS: BP 165/74
--- NOTE | 2017-01-08 19:45 | NUR ---
PT RECEIVED BACK FROM PACU, AWAKE, ALERT, DENIES ANY NEEDS. POST OP V/S STABLE. CONTINUE TO MONITOR CLOSELY.
[2017-01-09] VITALS: BP 168/68
--- NOTE | 2017-01-09 03:09 | NUR ---
PT RESTING COMFORTABLY, EASILY ROUSABLE TO VERBAL STIMULI. NO NEEDS AT THIS TIME. CONTINUE TO MONITOR CLOSELY.
[2017-01-09 04:00] VITALS: BP 150/70
--- NOTE | 2017-01-09 07:23 | NUR ---
AM ROUNDS- PT IN BED, WITH EYES CLOSED. BED LOW AND WHEELS LOCKED, BEDSIDE RAILS X2, BED ALARM ON. SCD'S OFF AT THIS TIME. RESP EVEN AND UNLABORED, RT FA SL. NAD NOTED, WILL CONTINUE TO MONITOR.
[2017-01-09 08:57] LABS: BASOPHILS 0.5 % (0-2); EOSINOPHILS 5.6 % (0-7); HEMATOCRIT 24.9 % (42.0-54.0); HEMOGLOBIN 7.8 g/dL (13.5-17.5); IMMATURE GRANULOCYTES 0.2 % (0-5); LYMPHOCYTES 14.9 % (15-50); MCHC 31.3 g/dL (31.0-37.0); MCV 98.8 fL (80.0-100.0); MEAN PLATELET VOLUME 9.4 fL (7.4-10.4); NEUTROPHILS 67.8 % (40-80); PLATELET COUNT 270 10x3/uL (130-400); RBC 2.52 10x6/uL (4.20-6.10); RDW 15.5 % (11.5-14.5); WBC 5.6 10x3/uL (4.8-10.8)
[2017-01-09 09:19] VITALS: BP 104/65
[2017-01-09 09:19] LABS: ANION GAP 13.6 mmol/L (8-16); CALCIUM 8.2 mg/dL (8.5-10.1); CARBON DIOXIDE 26.4 mmol/L (21.0-32.0); CREATININE - SERUM 7.4 mg/dL (0.6-1.3)
--- NOTE | 2017-01-09 10:27 | NUR ---
PT TRANSFERED TO DIALYSIS VIA BED, NAD NOTED.
--- NOTE | 2017-01-09 13:49 | NUR ---
PT TRANSFERED BACK TO ROOM VIA BED FROM DIALYSIS. PT DENIES ANY NEEDS AT THIS TIME. CALL LIGHT IN REACH, NAD NOTED, WILL CONTINUE TO MONITOR.
[2017-01-09 14:54] VITALS: BP 150/63
--- NOTE | 2017-01-09 15:13 | NUR ---
PT CONFUSED DID NOT WANT ME TO START IV ANTIBIOTIC OF ZOSYN. PT STATED "NO YOU CAN NOT HAVE MY ARM. I DONT WANT YOU TO HOOK THAT UP RIGHT NOW. WILL TRY AGAIN IN A LITTLE WHILE. PT DENIES ANY NEEDS AT THIS TIME. CALL LIGHT IN REACH, NAD NOTED, WILL CONTINUE TO MONITOR.
--- NOTE | 2017-01-09 15:23 | NUR ---
Patient Name: MINNIE ACEVEDO Encounter No: [id number] : 1945 Primary Insurance: MEDICARE A & B Anticipated DC Date: Planned Disposition: Home with Home Health External Planned Provider: [facility] DCP follow-up note: CM MET WITH PT IN ROOM TO DISCUSS DISCHARGE PLANNING AND NEEDS. PT CRYING, WANTS TO TALK TO CONCHITA. PT REPORTS HE IS GOING HOME WITH CONCHITA AT DISCHARGE. PT CONTINUES TO CRY, TELLS CM THAT HE HAS NOTHING AND HE IS NOT WELL. CM ENCOURGED PT TO HAVE POSITIVE THOUGHTS; PT ASKED TO SPEAK TO CONCHITA. CM CALLED CONCHITA TAVAREZ, CAREGIVER WHO LIVES WITH PT AT HOME, . CONCHITA REPORTS PLAN FOR PT TO RETURN HOME AT DISCHARGE WITH [facility]; OCNCHITA IS WORKING ON GETTING THE HOUSE READY TO ACCEPT PT AT DISCHARGE AND WILL BE IN TO SEE PT SHORTLY. CONCHITA SPOKE TO PT ON THE PHONE, PT CALMED AND STOPPED CRYING. FOR DISCHARGE HOME, NOTIFY [facility], , FAX DISCHARGE INFORMATION TO [facility] [place] AT [phone]. TRANSPORTATION TO BE ARRANGED BASED UPON PT'S ABILITY TO TRANSFER AND SIT SAFELY. Herminio Bowman, CASE MANAGEMENT
--- NOTE | 2017-01-09 16:30 | NUR ---
POWER CRANE OPERATOR CAITLIN ASKED TO CHECK ON PT. WENT INTO PT'S ROOM AND PT HAD TAKEN TELEMETRY OFF, AND PULLED OUT RT FA IV. PT ALSO TRYING TO PULL OUT HEMISPLIT. ASKED PT TO STOP PULLING AT HEMISPLIT BECAUSE HE NEEDS THAT FOR DIALYSIS. PT STATED " I WANT IT OUT NOW." CONVICED PT TO STOP PULLING AT HEMISLIT. INFOMRED PT THAT I WOULD HAVE TO START NEW IV SINCE HE PULLED OTHER IV OUT. PT STATED " I DONT WANT ANOTHER IV, AND YOU ARE NOT STARTING ONE, GO AWAY." INFORMED PT THAT HE NEEDED ANOTHER IV, SINCE HE IS GETTING ANTIBIOTICS, PT STILL REFUSING FOR ME TO START NEW IV, WILL SEE IF ONCOMING NURSE CAN GET PT TO AGREE TO HAVE ANOTHER IV STARTED. PT IN BED, BED ALARM ON, NAD NOTED, WILL CONTINUE TO MONITOR.
--- NOTE | 2017-01-09 17:24 | NUR ---
BLOOD SUGAR OF 173, 2 UNITS OF HUMALOG GIVEN PER S/S. PT EATING DINNER AT THIS TIME. CAREGIVER AT BEDSIDE AT THIS TIME. CALL LIGHT IN REACH, NAD NOTED, WILL CONTINUE TO MONITOR.
[2017-01-09 19:00] VITALS: BP 126/67
--- NOTE | 2017-01-09 21:13 | NUR ---
PT YELLING OUT "BANG" WHICH IS HIS PRIVATE PROJECT BUYER. KARIE DID VISIT EARLIER, BUT NO LONGER HERE. PT IS UNDRESSING HIMSELF, TRYING TO CLIMB OUT OF BED, HAS TAKEN HIS TELEMETRY OFF, REFUSES TO WEAR IT, HAS PULLED HIS IV OUT DURING DAYSHIFT, AND HAS BEEN PULLING AT HIS HEMOSPLIT. PT IS UNABLE TO BE REORIENTED AT THIS TIME. WILL CONTINUE TO MONITOR CLOSELY. BED LOW, CALL LIGHT IN REACH, SIDE RAILS X 2, HOB 20 DEGREES, BED ALARM ON.
--- NOTE | 2017-01-09 21:41 | NUR ---
PT HAS AGAIN ALMOST PULLED NEWLY PLACED HEMOSPLIT TO THE RIGHT CHEST OUT. DRESSING REPLACED WITH BIOPATCH NOW INTACT. I HAVE ALSO PLACED A LARGE BULKY BANDAGE OVER HEMOSPLIT SITE TO DETER HIM FROM PULLING ON IT ANYMORE. GOWN PLACED BACK ON PATIENT AGAIN, PT REPOSITIONED IN BED, BED ALARM ON, CALL LIGHT IN REACH, SIDE RAILS X 2, HOB 20 DEGREES. PT REQUIRES ONE ON ONE MONITORING AT THIS TIME. WILL ATTEMP TO GET IN TOUCH WITH FAMILY OR CAREGIVER TO ASK IF THEY WOULD PLEASE COME SIT WITH HIM, I HAVE 7 PATIENTS AND AM UNABLE TO DO A ONE ON ONE AT THIS TIME. CONTINUE TO MONITOR CLOSELY.
--- NOTE | 2017-01-09 23:45 | NUR ---
PT IS YELLING OUT, STATING THERE ARE BUGS EVERYWHERE. I HAVE REORIENTED PT TO TIME, PLACE, AND SITUATION, AND HAVE ASSURED PT THERE ARE NO BUGS, AND HE IS SAFE. CONTINUE TO MONITOR CLOSELY.
[2017-01-10] VITALS: BP 156/69
[2017-01-10 04:00] VITALS: BP 186/80
--- NOTE | 2017-01-10 04:57 | NUR ---
PT RESTING COMFORTABLY AT THIS TIME. CONTINUE TO MONITOR CLOSELY. BED LOW, CALL LIGHT IN REACH, SIDE RAILS X 3, HOB 10 DEGREES, BED ALARM ON.
[2017-01-10 05:22] LABS: BASOPHILS 0.4 % (0-2); EOSINOPHILS 7.1 % (0-7); HEMATOCRIT 29.4 % (42.0-54.0); IMMATURE GRANULOCYTES 0.4 % (0-5); LYMPHOCYTES 21.2 % (15-50); MCH 31.3 pg (26.0-34.0); MCHC 32.3 g/dL (31.0-37.0); MEAN PLATELET VOLUME 9.9 fL (7.4-10.4); MONOCYTES 15.2 % (2-11); NEUTROPHILS 55.7 % (40-80); PLATELET COUNT 269 10x3/uL (130-400); WBC 5.1 10x3/uL (4.8-10.8)
[2017-01-10 05:28] LABS: HEMOGLOBIN 9.5 g/dL (13.5-17.5); MCV 96.7 fL (80.0-100.0); RBC 3.04 10x6/uL (4.20-6.10)
[2017-01-10 05:31] LABS: ANION GAP 12.4 mmol/L (8-16); CREATININE - SERUM 5.9 mg/dL (0.6-1.3); POTASSIUM - SERUM 3.4 mmol/L (3.5-5.1)
--- NOTE | 2017-01-10 07:22 | NUR ---
AM ROUNDS- PT IN BED, WITH EYES CLOSED, RESP EVEN AND UNLABORED. SCD'S ON BILAT, BED ALARM ON, BED LOW AND WHEELS LOCKED, CALL LIGHT IN REACH, NAD NOTED, WILL CONTINUE TO MONITOR.
[2017-01-10 08:29] VITALS: BP 184/83
--- NOTE | 2017-01-10 09:03 | NUR ---
AM MEDS GIVEN. SET UP PT FOR BREAKFAST. PT DENIES ANY NEEDS AT THIS TIME. WHEN PT IS DONE WITH BREAKFAST WILL START NEW IV. MO MAT IN PLACE, CALL LIGHT IN REACH, NAD NOTED, WILL CONTINUE TO MONITOR.
--- NOTE | 2017-01-10 12:13 | NUR ---
BLOOD SUGAR OF 205, 4 UNITS OF HUMALOG GIVEN PER S/S. SET UP LUNCH TRAY FOR PT. PT ASKING FOR KAREN MONCADA PT THAT HE IS AT WORK RIGHT NOW BUT WILL BE HERE WHEN HE GETS OFF FROM WORK. PT DENIES ANY NEEDS AT THIS TIME. CALL LIGHT IN REACH, NAD NOTED, WILL CONTINUE TO MONITOR.
[2017-01-10 12:41] VITALS: BP 159/75
--- NOTE | 2017-01-10 14:11 | NUR ---
STILL UNABLE TO START NEW IV, THIS NURSE TRIED 3 TIMES, KATIE RN TRIED 3 TIMES, AND JESSY RN TRIED ONE TIME. VASCULAR NURSE MIRIAM RODRIGUEZ CALLED AT 1030. MIRIAM STATED THAT SHE WOULD TRY TO COME SOMETIME TODAY SINCE SHE IS WORKING IN THE ER TODAY.
--- NOTE | 2017-01-10 15:42 | NUR ---
RT FA IV WRAPPED WITH KERLEX, SO PT DOES NOT PULL IV OUT. IVBP PIPERCILLIN HUNG AT THIS TIME. PT DENIES ANY NEEDS, CALL LIGHT IN REACH, BED ALARM ON, NAD NOTED, WILL CONTINUE TO MONITOR.
[2017-01-10 16:21] VITALS: BP 161/75
--- NOTE | 2017-01-10 17:10 | NUR ---
BLOOS SUGAR OF 68. SET UP PT'S DINNER TRAY. CAREGIVER NOW AT BEDSIDE. PT DENIES ANY NEEDS AT THIS TIME. CALL LIGHT IN REACH, NAD NOTED, WILL CONTINUE TO MONITOR.
[2017-01-10 20:00] VITALS: BP 155/74
--- NOTE | 2017-01-10 21:27 | NUR ---
NURSING ROUNDS 20:00 - PT LYING IN BED, AWAKE, CONFUSED, YELLING OUT, HAS PULLED HIS HEMOSPLIT DRESSING OFF AND IV TO RIGHT FOREARM OUT. I DID REDRESS THE DRESSING, IN WHICH PT IMMEDIATELY PULLED IT BACK OFF AGAIN. PT IS AGITATED, REFUSES TO BE TOUCHED AND WILL SLAP/HIT AT YOU WHEN YOU TRY TO TOUCH HIM. PT DID TAKES HIS HS MEDS WITHOUT ANY DIFFICULTY. CONTINUE TO MONITOR CLOSELY AND REPLACE HEMOSPLIT DRESSING AGAIN. BED LOW, CALL LIGHT IN REACH, SIDE RAILS X 3, HOB 25-30 DEGREES, BED ALARM ON AND MO MATTRESS ON AND UNDER PATIENT. PT HAS ALSO BEEN TRYING TO CRAWL OUT OF BED.
--- NOTE | 2017-01-10 23:43 | NUR ---
PT RESTING COMFORTABLY AT THIS TIME. CONTINUE TO MONITOR CLOSELY.
[2017-01-11 04:43] LABS: BASOPHILS 0.2 % (0-2); EOSINOPHILS 5.5 % (0-7); HEMATOCRIT 30.8 % (42.0-54.0); IMMATURE GRANULOCYTES 0.5 % (0-5); MCH 31.2 pg (26.0-34.0); MCHC 32.5 g/dL (31.0-37.0); MEAN PLATELET VOLUME 9.4 fL (7.4-10.4); MONOCYTES 11.2 % (2-11); NEUTROPHILS 67.6 % (40-80); PLATELET COUNT 272 10x3/uL (130-400); RBC 3.21 10x6/uL (4.20-6.10); RDW 15.6 % (11.5-14.5); WBC 5.7 10x3/uL (4.8-10.8)
[2017-01-11 05:06] LABS: CALCIUM 8.7 mg/dL (8.5-10.1); CARBON DIOXIDE 27.3 mmol/L (21.0-32.0); CREATININE - SERUM 6.3 mg/dL (0.6-1.3); PHOSPHOROUS 4.3 mg/dL (2.5-4.9); POTASSIUM - SERUM 3.3 mmol/L (3.5-5.1)
--- NOTE | 2017-01-11 05:25 | NUR ---
PT RESTING COMFORTABLY, CONTINUE TO MONITOR CLOSELY.
--- NOTE | 2017-01-11 06:14 | NUR ---
PT STILL RESTING COMFORTABLY, EASILY ROUSABLE TO VERBAL STIMULI, STILL REFUSES TO BE TOUCHED. I HAVE REPLACED HIS HEMOSPLIT DRESSING AGAIN, WITH RESISTANCE FROM PATIENT. PT STILL REFUSING TO TAKES MEDS. CONTINUE TO MONITOR.
--- NOTE | 2017-01-11 07:21 | NUR ---
AM ROUNDS- REPOSITIONED PT IN BED, PT CONFUSED, RESP EVEN AND UNLABORED. PT DENIES ANY NEEDS AT THIS, BED LOW AND WHEELS LOCKED, BEDSIDE RAILS X2. BED ALARM ON, CALL LIGHT IN REACH, NAD NOTED, WILL CONTINUE TO MONITOR.
[2017-01-11 08:00] VITALS: BP 186/81
--- NOTE | 2017-01-11 09:01 | NUR ---
AM MEDS GIVEN AT THIS TIME. PT REFUSING TO HAVE IV STARTED. WILL TRY 30MIN AFTER GEODONE GIVEN. PT DENIES ANY NEEDS AT THIS TIME. DID NOT BREAKFAST. NAD NTOED, CALL LIGHT IN REACH, BED ALARM ON, WILL CONTINUE TO MONITOR.
--- NOTE | 2017-01-11 09:30 | NUR ---
PT TRANSFERED TO DIALYSIS VIA BED, NAD NOTED.
--- NOTE | 2017-01-11 10:32 | NUR ---
INFORMED SUZY TAN RENAL SUGAR MILL WORKER THAT PT WILL NOT KEEP IV IN, PULLS THEM OUT SOON THEY ARE STARTED. SUZY TAN STATED THAT BLUE PORT ON HEMISPLIT CAN BE USED FOR ANTIBIOTICS AND THEN HEPARIN LOCK AFTER ANTIBIOTICS ARE DONE.
[2017-01-11 16:00] VITALS: BP 160/80
--- NOTE | 2017-01-11 19:49 | NUR ---
BLUE PORT ON HEMISPLIT FLUSHED WITH 10CC OF NS AND INJECTED 1.9ML OF HEPARIN AT THIS TIME. PT IN BED, DENIES ANY NEEDS AT THIS TIME. BED ALARM ON, NAD NOTED, WILL CONTINUE TO MONITOR.
[2017-01-11 20:00] VITALS: BP 114/62
--- NOTE | 2017-01-11 20:10 | NUR ---
SLEEPING, BREATHING EVEN UNLABORED, AROUSES TO VOICE, DENIES NEEDS, BED LOWEST POSITION, CALL LIGHT IN REACH, WILL CONTINUE TO MONITOR
--- NOTE | 2017-01-11 22:47 | NUR ---
SLEEPING, NO DISTRESS NOTED, WILL CONTINUE TO MONITOR
[2017-01-12] VITALS: BP 157/70
--- NOTE | 2017-01-12 02:07 | NUR ---
PT RESTING WELL WITHOUT C/O OR DISTRESS NOTED. CALL LIGHT WITHIN REACH. WILL CONT TO MONITOR.
[2017-01-12 04:00] VITALS: BP 156/73
[2017-01-12 05:09] LABS: BASOPHILS 0.2 % (0-2); EOSINOPHILS 3.9 % (0-7); HEMATOCRIT 32.4 % (42.0-54.0); HEMOGLOBIN 10.2 g/dL (13.5-17.5); IMMATURE GRANULOCYTES 0.8 % (0-5); LYMPHOCYTES 16.6 % (15-50); MCH 30.5 pg (26.0-34.0); MCHC 31.5 g/dL (31.0-37.0); MEAN PLATELET VOLUME 10.1 fL (7.4-10.4); MONOCYTES 11.1 % (2-11); NEUTROPHILS 67.4 % (40-80); PLATELET COUNT 320 10x3/uL (130-400); RBC 3.34 10x6/uL (4.20-6.10); RDW 15.6 % (11.5-14.5)
[2017-01-12 05:24] LABS: ANION GAP 10.7 mmol/L (8-16); CARBON DIOXIDE 30.6 mmol/L (21.0-32.0); PHOSPHOROUS 3.8 mg/dL (2.5-4.9); POTASSIUM - SERUM 3.3 mmol/L (3.5-5.1)
[2017-01-12 05:30] LABS: CREATININE - SERUM 4.3 mg/dL (0.6-1.3)
--- NOTE | 2017-01-12 07:15 | NUR ---
RECEIVE REPORT. ASSUMED CARE OF PATIENT. RESTING WELL WITH EYES CLOSED. EASILY AROUSED. RESP EVEN AND UNLABORED. NO DISTRESS. CALL LIGHT WITHIN REACH.
[2017-01-12 08:21] VITALS: BP 136/76
--- NOTE | 2017-01-12 09:40 | NUR ---
ATTEMPTED TO ADMINISTER AM PILLS TO PATIENT. PATIENT VITALS STABLE. PATIENT WILL OPEN EYES AND LOOK AND THIS NIB ADJUSTER AND CLOSED HIS EYES AND GO BACK TO SLEEP. THIS NIB ADJUSTER CAN NOT GET PATIENT ALERT ENOUGH TO TAKE ORAL MEDICATION. TO PREVENT ASPIRATION/CHOKING, MEDICATIONS HELD AT THIS TIME.
[2017-01-12] MEDS ORDERED: FLORAJEN3 CAPS460 MG PO (10:38)
[2017-01-12] MEDS ORDERED: PAXIL20 MG PO (10:40)
--- NOTE | 2017-01-12 11:49 | NUR ---
FSBS 141. NO INSULIN COVERAGE PER SLIDING SCALE.
[2017-01-12 12:19] VITALS: BP 155/76
--- NOTE | 2017-01-12 16:18 | NUR ---
FSBS 165. 2 UNITS HUMALOG ADMINISTERED PER SLIDING SCALE.
--- NOTE | 2017-01-12 19:45 | NUR ---
PT RESTING IN BED. ALERT/SLOW SPEECH AND RESPONSE. TELLS NURSE HE IS OK, NO PAIN OR DISCOMFORT. NONLABORED RESPIRATIONS ON ROOM AIR. RIGHT CHEST WALL HEMOSPLIT CAPPED AND CLAMPED. LEFT ARM RESERVE FOR AVF/CELLULITIS/SWELLING. SEE ASSESSMENT. CPOC.
[2017-01-12 20:00] VITALS: BP 156/76
--- NOTE | 2017-01-12 21:16 | NUR ---
PT CONFUSED. YELLING OUT, TAKING OFF CLOTHES AND PULLING ON HIS HEMOSPLIT. BEDTIME GEODON GIVEN. FSBS 133, HS SNACK GIVEN. BED ALARM IN PLACE. WILL MONITOR.
--- NOTE | 2017-01-12 23:00 | NUR ---
PT NOW RESTING. NO FURTHER YELLING OUT OR DISRUPTIVE BEHAVIOR. CALL LIGHT IN REACH. CPOC.
[2017-01-13] VITALS: BP 154/66
--- NOTE | 2017-01-13 04:12 | NUR ---
PT HAS RESTED WITH NO DISTRESS. CALL LIGHT IN REACH. BED ALARM ACTIVE. CPOC.
[2017-01-13 04:34] LABS: BASOPHILS 0.3 % (0-2); EOSINOPHILS 7.5 % (0-7); HEMATOCRIT 33.2 % (42.0-54.0); HEMOGLOBIN 10.4 g/dL (13.5-17.5); IMMATURE GRANULOCYTES 0.5 % (0-5); LYMPHOCYTES 18.7 % (15-50); MCH 30.4 pg (26.0-34.0); MCHC 31.3 g/dL (31.0-37.0); MCV 97.1 fL (80.0-100.0); MEAN PLATELET VOLUME 10.1 fL (7.4-10.4); MONOCYTES 13.2 % (2-11); NEUTROPHILS 59.8 % (40-80); PLATELET COUNT 329 10x3/uL (130-400); RBC 3.42 10x6/uL (4.20-6.10); RDW 15.4 % (11.5-14.5)
[2017-01-13 04:51] LABS: ANION GAP 11.9 mmol/L (8-16); CALCIUM 8.4 mg/dL (8.5-10.1); CARBON DIOXIDE 28.4 mmol/L (21.0-32.0); POTASSIUM - SERUM 3.3 mmol/L (3.5-5.1)
[2017-01-13 04:54] LABS: CREATININE - SERUM 5.6 mg/dL (0.6-1.3)
[2017-01-13 05:55] VITALS: BP 178/76
--- NOTE | 2017-01-13 07:20 | NUR ---
AM ROUNDING- RECIEVED REPORT FROM RADIOLOGY TRANSCRIPTIONIST NURSE MONTSERRAT. PT IS CURRENTLY SITTING UP IN BED LAYING ON BACK WITH EYES OPEN RESTING. PT APPEARS TO BE PLEASANTLY CONFUSED. ON ROOM AIR. NO MONITOR. RESERVE LEFT ARM FOR AVF THAT IS NOT IN USE CURRENTLY PER REPORT. RIGHT CHEST HEMOSPLIT SEEN FOR DIALYSIS. PER MONTSERRAT, NURSE HAS PERMISSION TO USE BLUE PORT ORDERED. BED ALARM IS ON. BED IS IN LOW POSITION, SIDE RAILS ARE UP X2, AND CALL LIGHT IS IN REACH. WILL CONTINUE TO MONITOR AND CONTINUE WITH PLAN OF CARE.
[2017-01-13 08:00] VITALS: BP 173/70
--- NOTE | 2017-01-13 10:40 | NUR ---
PULLED 1.9CC OF HEPARIN OUT OF PTS BLUE PORT FROM HEMOSPLIT TO RIGHT CHEST DIRECTED. STARTED PTS IV ANTIBIOTICS ORDERED. WILL FLUSH BLUE PORT WITH HEPARIN DIRECTED ONCE IV ANTIBIOTIC GETS FINSHED. PT IS IN CONTINENT OF URINE AND STATES SHE NEEDS TO USE BATHROOM. CHARLIE ELAM AND THIS NURSE PLACED PT ON BED PEOPLES. PARVEEN DAVILA IS AWARE SO THAT WHEN PT GETS FINISHED PT CAN BE CLEANED UP AND GIVEN FRESH LINEN.
--- NOTE | 2017-01-13 10:59 | NUR ---
JOSE, RADIOLOGY PHYSICIAN ASSISTANT CAME TO INFORM ME THAT PER CM NOTE, PT IS TO BE D/C HOME WITH HOME HEALTH FOR CAREGIVER "UMAIR" TO TAKE CARE OF PT. ORTIZ ALMONTE PAGED TO INFORM HER OF THIS AND TO RECIEVE HOME HEATLH ORDERS. WILL AWAIT CALLBACK AND CONTINUE TO MONITOR.
--- NOTE | 2017-01-13 11:05 | NUR ---
ORTIZ ALMONTE CALLED BACK. INFORMED HER OF SITUATION. ORTIZ ALMONTE STATES PT CANNOT GO HOME. JOSE TRESTLE BUILDER GOT ON PHONE AND TALKED WITH ORTIZ ALMONTE. JOSE TRESTLE BUILDER STATES WE ARE WAITING ON UMAIR, PTS CAREGIVER TO CALL UNIT TO GO FROM THERE WITH PLAN OF CARE. WILL CONTINUE TO MONITOR.
[2017-01-13 12:00] VITALS: BP 169/65
--- NOTE | 2017-01-13 12:47 | NUR ---
LATE ENTRY 1000 NAIMA WAS ADVISED BY DEER FARMER THAT PATIENT HAD ORDERS TO DISCHARGE BACK TO THE [facility]. SPOKE WITH TIM AT THE [facility]. SHE REPORTS THE PATIENT RAN OUT OF DAYS AND COULD NOT RETURN TO THE [facility]. SUZY, THE PRE SALES SYSTEMS ENGINEER, STATES THE PATIENT CANNOT RETURN TO HOME. HIS FRIEND, CONCHITA, WORKS AND CANNOT PROVIDE THE 24 HR CARE THE PATIENT WILL NEED. SUZY STATED SHE WOULD ADVISE DR COLIN. NAIMA HAD PLACED A TELEPHONE CALL TO CONCHITA. LEFT A VOICE MAIL FOR HIM TO CALL [employer]. THE DISCHARGE PLAN WAS FOR D/C TO HOME W/ [facility]. AWAIT CB FROM CAREGIVER. NAIMA DISCUSSED WITH THE PRIMARY NURSE, RUTHANN.
--- NOTE | 2017-01-13 15:05 | NUR ---
SPOKE WITH CONCHITA, PTS WET CHEMISTRY ANALYST. THIS NURSE RELAYED INFORMATION VIA JOSE ELEMENTARY EDUCATOR THAT SUZY, DISTRICT SALES REPRESENTATIVE AND DOCTOR ARE IN AGREEMENT THAT PT IS NOT READY TO GO HOME AT THIS POINT AND NEES 24 HOUR CARE. I INFORMED CONCHITA THAT THE BEST IDEA (JOSE ELEMENTARY EDUCATOR AGREES) IS FOR HIM TO COME TO UNIT TOMORROW AND SPEAK WITH THE DOCTOR AND ELEMENTARY EDUCATOR LUCIEN, WHO HAS BEEN WORKING WITH PT. CONCHITA STATES HE WILL COME SEE PT TONIGHT AND COME BACK TOMORROW TO SPEAK WITH THE DOCTOR AND ELEMENTARY EDUCATOR.
[2017-01-13 16:00] VITALS: BP 170/79
--- NOTE | 2017-01-13 17:06 | NUR ---
PARVEEN DORSEY AND I CLEAND PT UP (PT IS INCONTINENT OF URINE AND STOOL). NEW PADS PLACED UNDER PT. PT PULLED UP IN BED. PT IS NOW EATING DINNER. NO NEED AT THIS TIME. BED ALARM IS ON. BED IS IN LOW POSITION, SIDE RAILS ARE UP X2, CALL LIGHT IS IN REACH, AND NON-SKID SOCKS ARE ON.
--- NOTE | 2017-01-13 19:06 | NUR ---
RECEIVED REPORT, WILL ASSUME CARE OF PT, PT SITTING UP IN BED EATING DINNER, DENIES ANY NEEDS, BED IS LOW, SRX2, BED ALARM IS ON, WILL CONTINUE PLAN OF CARE
--- NOTE | 2017-01-13 19:39 | NUR ---
LATE ENTRY 1500 CM SPOKE WITH PRIMARY NURSE, RUTHANN, REGARDING RETURN CALL FROM CONCHITA, THE CAREGIVER. NO CALL HAD BEEN RECEIVED. SHE CALLED CONCHITA AND HE DID ANSWER THE PHONE. PATIENT NOT DISCHARGED TO HOME W/ HOME HEALTH TODAY. THE EXCEL ANALYSTSUZY, AND , DR COLIN FEEL THE PATIENT WOULD NOT HAVE APPROPRIATE CARE AT HOME HIS CAREGIVER WORKS. CM SUGGESTED TO PRIMARY NURSE TO HAVE CONCHITA COME ON SITE IN THE AM TO DISCUSS CAREGIVERS HE WORKS AND ORTIZ FEELS PATIENT SHOULD NOT BE LEFT ALONE. CONCHITA AGREES AND STATED HIS MOTHER AND FAMILY HELPS. PATIENT WILL HAVE HOME HEALTH W/ [facility] AT DISCHARGE PER WEEKDAY CM NOTES. AWAIT AGREEMENT ON PLAN AT DISCHARGE FOR A SAFE TRANSITION AT DISCHARGE.
[2017-01-13 20:00] VITALS: BP 164/68
--- NOTE | 2017-01-13 21:07 | NUR ---
BLOODSUGAR-128- NO COVERAGE
[2017-01-14] VITALS: BP 141/63
[2017-01-14 04:00] VITALS: BP 152/67
[2017-01-14 05:10] LABS: BASOPHILS 0.4 % (0-2); EOSINOPHILS 4.8 % (0-7); HEMATOCRIT 32.9 % (42.0-54.0); HEMOGLOBIN 10.5 g/dL (13.5-17.5); IMMATURE GRANULOCYTES 0.5 % (0-5); MCH 30.8 pg (26.0-34.0); MCHC 31.9 g/dL (31.0-37.0); MCV 96.5 fL (80.0-100.0); MONOCYTES 8.8 % (2-11); NEUTROPHILS 71.5 % (40-80); PLATELET COUNT 336 10x3/uL (130-400); RBC 3.41 10x6/uL (4.20-6.10); RDW 15.3 % (11.5-14.5)
[2017-01-14 05:14] LABS: WBC 8.5 10x3/uL (4.8-10.8)
[2017-01-14 05:25] LABS: ANION GAP 15.1 mmol/L (8-16); CALCIUM 8.9 mg/dL (8.5-10.1); CARBON DIOXIDE 26.2 mmol/L (21.0-32.0); CREATININE - SERUM 6.8 mg/dL (0.6-1.3); PHOSPHOROUS 4.4 mg/dL (2.5-4.9); POTASSIUM - SERUM 3.3 mmol/L (3.5-5.1)
[2017-01-14 08:00] VITALS: BP 154/66
--- NOTE | 2017-01-14 09:20 | NUR ---
TAKEN TO DIALYSIS VIA BED. ALERT AND ORIENTED TO PERSON. CONTINUE PLAN OF CARE AND SAFETY PRECAUTIONS.
--- NOTE | 2017-01-14 11:57 | NUR ---
Patient Name: MINNIE ACEVEDO Encounter No: [id number] : 1945 Primary Insurance: MEDICARE A & B Anticipated DC Date: 01-14-2017 Planned Disposition: Home with Home Health External Planned Provider: [facility] DCP follow-up note: NAIMA MET WITH CONCHITA TAVAREZ IN ROOM, PT IN DIALYSIS AT THIS TIME. CONCHITA REPORTS THAT HE LIVES WITH PT AND CONCHITA WORKS AT THE [employer] THREE MORNINGS WEEKLY, 5AM TO 9AM. CONCHITA PLANS TO DO WHAT HE WAS DOING IN THE PAST FOR PT'S CARE AT HOME, PLACE PT ON THE [employer] [facility] FOR DIALYSIS, GO TO WORK TWO BLOCKS FROM WHERE THEY LIVE AND BE HOME TO RECEIVE PT FROM THE [employer] [facility]. CONCHITA REPORTS DIALYSIS SCHEDULE OF TTS. CONCHITA REPORTS ABILITY TO CHANGE HIS WORK SCHEDULE IF NEEDED; CONCHITA REPORTS HAVING ASSISTANCE OF HIS MOTHER AND A FRIEND THAT ALSO LIVE IN THE SAME BUILDING THAT HAVE AGREED TO ASSIST WITH PT'S CARE NEEDED. CONCHITA ASSURES PT THAT PT WILL NOT BE LEFT ALONE AT ANY TIME AT HOME. CONCHITA WOULD LIKE TO TAKE PT HOME TODAY ON THE [employer] [facility]. IMPORTANT MESSAGE FROM [employer] PROVIDED AND EXPLAINED, CHOICE LETTER SIGNED FOR [facility]. NAIMA PAGED AND NOTIFIED RENAL NURSE SHANA OF HOME CARE PLAN. NAIMA LATER NOTIFEID BY HSANA THAT PT WILL DISCHARGE HOME TODAY WITH HOME HEALTH. NAIMA CALLED [facility], , SPOKE TO [place] WHO REPORTS THEY WILL ADMIT PT ON SATURDAY. NAIMA FAXED DISCHARGE INFORMATION TO [facility] AT [phone]. NAIMA CALLED [facility]SP[facility], , SPOKE TO [place] AND SCHEDULED TRANSPORTATION FOR TODAY AFTER 1:00PM, FOR PT AND CAREGIVER. NAIMA PROVIDED NURSES STATION CONTACT NUMBER FOR VENEER DEPARTMENT MANAGER TO CALL UPON ARRIVAL TO HOSPITAL FOR OPERATIONS SECTION MANAGER. CONCHITA NOTIFIED, IN AGREEMENT WITH PLAN AND WILL CALL MEDICAID TRANSPORT TO SCHEDULE SCAT OPERATIONS SECTION MANAGER FOR PT'S NORMAL DIALYSIS DAYS. Herminio Bowman. CASE MANAGEMENT
--- NOTE | 2017-01-14 13:00 | NUR ---
DISCHARGE INSTRUCTIONS GIVEN TO CAREGIVER CONCHITA VERBALLY AND WRITTEN. DISCHARGE PAPERS SIGNED ON CHART. ASSIST DRESSING FOR DISCHARGE. ASSIST TO PERSONAL WHEELCHAIR. ESCORT TO SCAT BUS VIA WHEELCHAIR. REMAINS FREE FROM INJURY.
== END 2017-01-14 16:25 | disposition home health service (06) | DRG 314 ==
LOC: D.M2 10:44
PROVIDERS: Internal Medicine; Surgery; ADMIT Internal Medicine Nephrology
PROC: 5A1D60Z (ICD-10-PCS; 2017-01-07)
PROC: B518YZA Fluoroscopy of Superior Vena Cava using Other Contrast, Guidance (ICD-10-PCS; 2017-01-08)
PROC: 02HV33Z Insertion of Infusion Device into Superior Vena Cava, Percutaneous Approach (ICD-10-PCS; principal; 2017-01-08 15:00)
DX: T82.7XXA Infection and inflammatory reaction due to other cardiac and vascular devices, implants and grafts, initial encounter (principal); N18.6 End stage renal disease; I42.9 Cardiomyopathy, unspecified; I12.0 Hypertensive chronic kidney disease with stage 5 chronic kidney disease or end stage renal disease; E11.22 Type 2 diabetes mellitus with diabetic chronic kidney disease; Z99.2 Dependence on renal dialysis; E11.40 Type 2 diabetes mellitus with diabetic neuropathy, unspecified; D63.1 Anemia in chronic kidney disease; F03.90 Unspecified dementia, unspecified severity, without behavioral disturbance, psychotic disturbance, mood disturbance, and anxiety; Z86.73 Personal history of transient ischemic attack (TIA), and cerebral infarction without residual deficits; I34.0 Nonrheumatic mitral (valve) insufficiency; Y83.8 Other surgical procedures as the cause of abnormal reaction of the patient, or of later complication, without mention of misadventure at the time of the procedure

== ENCOUNTER 2017-02-14 10:26 | Emergency (ER) | payer MEDICARE ==
[2017-01-08 08:55] VITALS: BMI 22.2
[~2017-02-14 10:26] MED LIST changes: +FLORAJEN3 CAPS460 MG PO; +PAXIL20 MG PO
== END 2017-02-14 13:52 | disposition home or self-care (01) ==
LOC: D.ER 10:26
DX: M25.511 Pain in right shoulder (principal); M25.561 Pain in right knee; E11.9 Type 2 diabetes mellitus without complications; Z79.4 Long term (current) use of insulin; I12.9 Hypertensive chronic kidney disease with stage 1 through stage 4 chronic kidney disease, or unspecified chronic kidney disease; N18.9 Chronic kidney disease, unspecified; S42.001A Fracture of unspecified part of right clavicle, initial encounter for closed fracture; W19.XXXA Unspecified fall, initial encounter; Y93.89 Activity, other specified; Y92.029 Unspecified place in mobile home as the place of occurrence of the external cause

== ENCOUNTER 2017-02-21 10:32 | Inpatient (IN) | payer MEDICARE ==
[~2017-02-21] VITALS: Ht 170.2 cm; Wt 66.2 kg
[2017-02-21 11:00] LABS: BASOPHILS 0.2 % (0-2); EOSINOPHILS 2.1 % (0-7); HEMATOCRIT 37.2 % (42.0-54.0); HEMOGLOBIN 11.5 g/dL (13.5-17.5); IMMATURE GRANULOCYTES 0.3 % (0-5); LYMPHOCYTES 13.4 % (15-50); MCH 30.1 pg (26.0-34.0); MCHC 30.9 g/dL (31.0-37.0); MCV 97.4 fL (80.0-100.0); MEAN PLATELET VOLUME 9.9 fL (7.4-10.4); MONOCYTES 9.9 % (2-11); NEUTROPHILS 74.1 % (40-80); RBC 3.82 10x6/uL (4.20-6.10); RDW 16.2 % (11.5-14.5); WBC 6.3 10x3/uL (4.8-10.8)
[2017-02-21 11:08] LABS: PLATELET COUNT 163 10x3/uL (130-400)
[2017-02-21 11:21] LABS: ALBUMIN 2.5 g/dL (3.4-5.0); ANION GAP 12.3 mmol/L (8-16); BILIRUBIN - TOTAL 0.36 mg/dL (0.2-1.3); CALCIUM 8.5 mg/dL (8.5-10.1); CARBON DIOXIDE 28.8 mmol/L (21.0-32.0); CREATININE - SERUM 2.4 mg/dL (0.6-1.3); POTASSIUM - SERUM 3.1 mmol/L (3.5-5.1); PROTEIN - SERUM 6.6 g/dL (6.4-8.2)
[2017-02-21 16:15] VITALS: BP 192/85; BMI 19.7
--- NOTE | 2017-02-21 18:49 | NUR ---
PT IN BED AND APPEARS TO BE SLEEPING WITH EQUAL AND NON LABORED BREATHING. BED AT LOWEST POSITION. CALL LR IN USE/REACH. SIDE RAILS UP X2. BED ALARM ON AND WORKING. MO MAT ALARM ON. WILL CONTIUE TO MONITOR
--- NOTE | 2017-02-21 19:55 | NUR ---
PT LYING IN BED, AWAKE, ALERT, CONFUSED, REFUSES TO EAT HIS DINNER TRAY, STATES HE DOES NOT FEEL GOOD. SPORTS TEAM MANAGER CURRENTLY AT BEDSIDE FOR V/S. NO NEEDS AT THIS TIME. BED LOW, CALL LIGHT IN REACH, SIDE RAILS X 2, HOB 20 DEGREES, BED ALARM ON.
[2017-02-21 21:18] VITALS: BP 136/70
--- NOTE | 2017-02-22 00:15 | NUR ---
PT IS RESTING COMFORTABLY, EYES CLOSED, RESPIRATIONS EVEN AND UNLABORED. PT IS EASILY ROUSABLE TO VERBAL STIMULI. CONTINUE TO MONITOR CLOSELY. BED ALARM ON.
[2017-02-22 01:16] VITALS: BP 159/75
[2017-02-22 04:49] VITALS: BP 185/81
[2017-02-22 05:51] LABS: BASOPHILS 0.5 % (0-2); EOSINOPHILS 3.2 % (0-7); HEMATOCRIT 39.2 % (42.0-54.0); IMMATURE GRANULOCYTES 0.7 % (0-5); LYMPHOCYTES 17.8 % (15-50); MCH 29.8 pg (26.0-34.0); MCHC 30.6 g/dL (31.0-37.0); MCV 97.3 fL (80.0-100.0); MEAN PLATELET VOLUME 10.3 fL (7.4-10.4); MONOCYTES 17.8 % (2-11); PLATELET COUNT 178 10x3/uL (130-400); RBC 4.03 10x6/uL (4.20-6.10); RDW 16.3 % (11.5-14.5)
[2017-02-22 06:03] LABS: WBC 4.4 10x3/uL (4.8-10.8)
[2017-02-22 06:16] LABS: ALBUMIN 2.6 g/dL (3.4-5.0); ANION GAP 15.2 mmol/L (8-16); BILIRUBIN - TOTAL 0.5 mg/dL (0.2-1.3); CALCIUM 9.1 mg/dL (8.5-10.1); CARBON DIOXIDE 26.3 mmol/L (21.0-32.0); POTASSIUM - SERUM 3.5 mmol/L (3.5-5.1); PROTEIN - SERUM 6.3 g/dL (6.4-8.2)
[2017-02-22 06:26] LABS: CREATININE - SERUM 3.6 mg/dL (0.6-1.3)
[2017-02-22 08:00] VITALS: BP 172/79
--- NOTE | 2017-02-22 11:19 | NUR ---
AM ROUNDS - PT IN BED AND APPEARS TO BE SLEEPING AT THIS TIME WITH EQUAL AND NON LABORED BREATHING. IV TO RIGHT AC, SL. PT IS ON ROOM AIR. RESERVE LEFT ARM, AVF. BED ALARM ARM. MOITOR SHOWING SR, HR 80. BED AT LOWEST POSITION. CALL LR IN USE/REACH. SIDE RAILS UP X2. WILL CONTINUE TO MONITOR.
[2017-02-22 12:00] VITALS: BP 157/69
--- NOTE | 2017-02-22 13:12 | NUR ---
Nutrition Note: Pt reported that he has trouble chewing and swallowing. He said that he has difficulty swallowing solids and liquids. RD will change diet to renal ADA mech soft. Rec INSTRUCTIONAL INTERVENTIONIST consult. RD following.
[2017-02-22 13:13] VITALS: Ht 170.2 cm; Wt 66.2 kg
[2017-02-22 16:00] VITALS: BP 177/74
--- NOTE | 2017-02-22 19:05 | NUR ---
ROUNDING NOTE: PT IS SITTING UP IN BED AT THE CHANGE OF THE SHIFT. HE IS ALERT TO SELF AND PLACE. PT HAS SLURRED SPEECH AND IS DIFFICULT TO UNDERSTAND AT TIMES. HE HAS RIGHT AC SALINE LOC AND RIGHT CHEST HEME SPLIT. PT IS DIALYSIS PT, LEFT ARM RESERVE. LEFT ARM AVF WITHOUT BRUIT AND WITHOUT THRILL. LEFT ARM IS RED AND VERY EDEMATOUS. WRIST BAND CUT OFF B/C IT WAS TOO TIGHT. ON MONITOR, PT IS SINUS RHTHYM W/ RATE 80. WILL CONT TO MONITOR
[2017-02-22 21:01] VITALS: BP 143/80
[2017-02-23] VITALS: BP 136/72
[2017-02-23 04:00] VITALS: BP 203/88
[2017-02-23 05:21] LABS: BASOPHILS 0.2 % (0-2); EOSINOPHILS 3.2 % (0-7); HEMATOCRIT 39.1 % (42.0-54.0); IMMATURE GRANULOCYTES 0.6 % (0-5); LYMPHOCYTES 17.1 % (15-50); MCH 29.6 pg (26.0-34.0); MCHC 30.7 g/dL (31.0-37.0); MCV 96.5 fL (80.0-100.0); MEAN PLATELET VOLUME 9.6 fL (7.4-10.4); MONOCYTES 17.3 % (2-11); NEUTROPHILS 61.6 % (40-80); PLATELET COUNT 185 10x3/uL (130-400); RBC 4.05 10x6/uL (4.20-6.10); RDW 16.3 % (11.5-14.5)
[2017-02-23 05:38] LABS: ANION GAP 11.7 mmol/L (8-16); CALCIUM 9.4 mg/dL (8.5-10.1); CARBON DIOXIDE 27.9 mmol/L (21.0-32.0); POTASSIUM - SERUM 3.6 mmol/L (3.5-5.1)
[2017-02-23 05:40] LABS: CREATININE - SERUM 4.6 mg/dL (0.6-1.3)
--- NOTE | 2017-02-23 07:17 | NUR ---
AM RUNDING DONE WITH PATIENT APPEARING TO BE ALSEEP, LAYING ON BACK. RESP ARE EVEN AND NON LABORED. ON HEART MONITOR SHOWING SR, HR 65. RIGHT HEMISPLIT SEEN WITH DRY INTACT DRESSING. RESERVE LEFT ARM WITH AVF. WILL ASSESS WHEN AWAKE.
--- NOTE | 2017-02-23 07:59 | NUR ---
AT 0430, PT BP ELEVATED TO 203/98. PT'S HOME MEDS INCLUDING COREG HAVE NOT BEEN REORDERED SINCE PT HAS BEEN HERE AT THE HOSPITAL. PT WITH C/O HEADACHE WELL. RENAL ANSWERING SERVICE CALLED. SPOKE WITH SHANA TAVERAS NP WHO GAVE ORDER FOR ONE TIME DOSE OF CLONIDINE. SHE STATES THAT SHE WILL ADDRESS HIS HOME MEDS WHEN SHE COMES IN TODAY. WAITED FOR CARE WORKER TO PULL MED, GAVE TO PT AT APPROX 0630 ALONG WITH TYLENOL FOR HIS HEADACHE. WILL CONT TO MONITOR.
[2017-02-23 08:00] VITALS: BP 144/73
--- NOTE | 2017-02-23 09:01 | NUR ---
0856-TO DIALYSIS VIA BED. WILL GET ASSESSMENT PAST RETURNING TO ROOM.
--- NOTE | 2017-02-23 11:24 | NUR ---
5210-WENT TO DIALYSIS AND DID A NEURO CHECK WITH HAND BISQUE GRADER AND LEG MOVEMENTS AND THEN CALLED DR VIERA BACK AT [phone]
--- NOTE | 2017-02-23 12:19 | NUR ---
ADRIANA FROM DIALYSIS CALLED AND GAVE ME REPORT. SHE REPORTS THAT MRI IS THERE TO TAKE HIM TO RADIOLOGY AND THEY WILL BRING HIM BACK TO ME. SHE ALSO SAID THAT SHE BAYRON THE BLOOD CULTURES.
--- NOTE | 2017-02-23 14:37 | NUR ---
1339-RETURNS FROM RADIOLOGY AND DIALYSIS. EATING LUNCH. ALARMS ARE SET.
[2017-02-23 16:00] VITALS: BP 133/68
--- NOTE | 2017-02-23 16:09 | NUR ---
WATCHING TV, DENIES ANY NEEDS AT PRESENT TIME. WILL CONTINUE TO MONITOR.
[2017-02-23 19:33] VITALS: BP 151/73
--- NOTE | 2017-02-23 20:00 | NUR ---
PT AWAKE/ALERT AND RESTING IN BED. LEFT ARM SWOLLEN WITH NON FUNCTIONING AVF. RIGHT CHEST WALL HEMOSPLIT CAPPED AND CLAMPED WITH DRESSING C/D/I. NONLABORED RESPIRATIONS ON ROOM AIR. SR PER TELEMETRY. KEEPING LEFT ARM ELEVATED ON PILLOW. SEE SHIFT ASSESSMENT.CALL LIGHT IN REACH.
[2017-02-23 23:27] VITALS: BP 157/76
--- NOTE | 2017-02-24 02:14 | NUR ---
PT RESTING IN BED WITH EYES CLOSED. RESPS EVEN/NONLABORED. LEFT ARM ELEVATED ON PILLOW. SCDS. CPOC. CALL LIGHT IN REACH.
[2017-02-24 05:00] VITALS: BP 140/82
--- NOTE | 2017-02-24 06:30 | NUR ---
RESTING WITH NO DISTRESS. NO CHANGE FROM INITIAL SHIFT ASSESSMENT. CPOC.
[2017-02-24 06:39] LABS: BASOPHILS 0.4 % (0-2); EOSINOPHILS 2.9 % (0-7); HEMATOCRIT 40.1 % (42.0-54.0); HEMOGLOBIN 12.5 g/dL (13.5-17.5); IMMATURE GRANULOCYTES 0.6 % (0-5); LYMPHOCYTES 18.8 % (15-50); MCH 30.3 pg (26.0-34.0); MCHC 31.2 g/dL (31.0-37.0); MCV 97.3 fL (80.0-100.0); MEAN PLATELET VOLUME 9.8 fL (7.4-10.4); MONOCYTES 15.7 % (2-11); NEUTROPHILS 61.6 % (40-80); PLATELET COUNT 170 10x3/uL (130-400); RBC 4.12 10x6/uL (4.20-6.10); RDW 16.7 % (11.5-14.5); WBC 4.8 10x3/uL (4.8-10.8)
[2017-02-24 06:51] LABS: ANION GAP 15.2 mmol/L (8-16); CALCIUM 9.2 mg/dL (8.5-10.1); CARBON DIOXIDE 27.9 mmol/L (21.0-32.0); CREATININE - SERUM 3.8 mg/dL (0.6-1.3); POTASSIUM - SERUM 4.1 mmol/L (3.5-5.1)
--- NOTE | 2017-02-24 07:38 | NUR ---
AM ROUNDING DONE WITH PATIENT LAYING SLIGHTY TO LEFT SIDE APPEARIG TO BE ALSEEP. RESP ARE EVEN AND NON LABORED. BED ALARM IS IN USE. ON HEART MONITOR SHOWING SR, HR 79. RIGHT HEMISPLIT SEEN WITH DRY INTACT DRESSING. LEFT ARM IS SLIGHTLY SWOLLEN, UP ON PILLOW. RESERVE LEFT ARM WITH AVF, NO BRUIT OR THRILL FELT AT THIS TIME. WILL MONITOR.
[2017-02-24 08:00] VITALS: BP 164/79
[2017-02-24 12:00] VITALS: BP 152/64
--- NOTE | 2017-02-24 12:02 | NUR ---
PATIENT NOT WANTING TO EAT AT THIS TIME. WILL NOT GIVE HIS RENVELA OR INSULIN AT THIS TIME. WILL CONTINUE TO ENCOURAGE HIM.
[2017-02-24 16:00] VITALS: BP 164/74
--- NOTE | 2017-02-24 17:21 | NUR ---
CONCHITA-CAREGIVER AT BEDSIDE WITH PATIENT HELPING HIM EAT HIS SUPPER. DENIES ANY NEEDS AT PRESENT TIME. WILL CONTINUE TO MONITOR.
--- NOTE | 2017-02-24 19:37 | NUR ---
RESTING IN BED WITH NO DISTRESS. NONLABORED RESPIRATIONS ON ROOM AIR. RIGHT CHEST WALL HEMOSPLIT CAPPED AND CLAMPED. PIV TO RIGHT A/C SALINE LOCKED. LEFT ARM SWOLLEN/EDEMATOUS--ELEVATED ON PILLOW, RESERVE FOR AVF LEFT ARM. BED ALARM IN USE FOR SAFETY. SR PER TELEMETRY. SEE ASSESSMENT. CPOC.
[2017-02-24 20:49] VITALS: BP 134/60
--- NOTE | 2017-02-24 21:36 | NUR ---
AWAKE. ALERT. BEDTIME MEDS GIVEN. FSBS 97. OFFERED SNACK, PT DECLINED. PT CLEAN/DRY. BED ALARM ACTIVATED. LEFT HAND/ARM LESS SWOLLEN TODAY. CPOC.
[2017-02-25 01:18] VITALS: BP 160/68
--- NOTE | 2017-02-25 04:05 | NUR ---
PT HAS SLEPT WITH NO DISTRESS. VSS. CLEAN/DRY. KEEPING LEFT ARM ELEVATED ON PILLOW. CPOC.
[2017-02-25 05:25] VITALS: BP 173/74
[2017-02-25 06:16] LABS: BASOPHILS 0.2 % (0-2); EOSINOPHILS 3.5 % (0-7); HEMATOCRIT 37.9 % (42.0-54.0); HEMOGLOBIN 11.6 g/dL (13.5-17.5); IMMATURE GRANULOCYTES 0.3 % (0-5); LYMPHOCYTES 22.3 % (15-50); MCH 29.7 pg (26.0-34.0); MCHC 30.6 g/dL (31.0-37.0); MCV 97.2 fL (80.0-100.0); MEAN PLATELET VOLUME 10.4 fL (7.4-10.4); MONOCYTES 12.7 % (2-11); PLATELET COUNT 188 10x3/uL (130-400); RDW 16.6 % (11.5-14.5)
[2017-02-25 06:41] LABS: ANION GAP 13.7 mmol/L (8-16); CALCIUM 9.2 mg/dL (8.5-10.1); CARBON DIOXIDE 27.5 mmol/L (21.0-32.0); POTASSIUM - SERUM 4.2 mmol/L (3.5-5.1); VANCOMYCIN - RANDOM 14.3 ug/mL (10.0-20.0)
[2017-02-25 06:46] LABS: CREATININE - SERUM 4.8 mg/dL (0.6-1.3)
--- NOTE | 2017-02-25 07:36 | NUR ---
AM ROUNDS- PT IN BED, DENIES ANY NEEDS AT THIS TIME, RESP EVEN AND UNLABORED. RT AC SL. BED LOW AND WHEELS LOCKED, BEDSIDE RAILS X2, CALL LIGHT IN REACH, NAD NOTED, WILL CONTINUE TO MONITOR.
[2017-02-25 08:00] VITALS: BP 177/61
--- NOTE | 2017-02-25 08:48 | NUR ---
AM MEDS GIVEN AT THIS TIME. PT TAKES PILLS ONE AT A TIME. BUILDER BEAM AT BEDSIDE HELPING PT EAT HIS BREAKFAST. PT DENIES ANY NEEDS AT THIS TIME. CALL LIGHT IN REACH, NAD NOTED, WILL CONTINUE TO MONITOR.
[2017-02-25 12:00] VITALS: BP 140/67
--- NOTE | 2017-02-25 12:14 | NUR ---
BLOOD SUGAR OF 185, 2UNITS OF HUMALOG GIVEN PER S/S. PT DENIES ANY NEEDS AT THIS TIME. CALL LIGHT IN REACH, NAD NOTED, WILL CONTINUE TO MONITOR.
--- NOTE | 2017-02-25 12:42 | NUR ---
Nutrition follow-up: Visited with pt during meal rounds. Pt states he has to eat very slow. Pt is waiting for INDUSTRIAL REGISTERED NURSE to help him eat breakfast; his caregiver usually helps. Diet: Renal ADA mechanical soft PO intake ~50% average of meals Wt: 139# +BM Pt has not been seen by speech Recommend BSSE due to pt with coughing spells during meals. RDN following.
[2017-02-25 16:00] VITALS: BP 141/69
--- NOTE | 2017-02-25 16:36 | NUR ---
BLOOD SUGAR OF 210, 4UNITS OF HUMALOG GIVEN PER S/S. PT DENIES ANY OTHER NEEDS AT THIS TIME. MIRIAM VASCULAR NURSE AT BEDSIDE TO START IV. NAD NOTED
--- NOTE | 2017-02-25 19:22 | NUR ---
PT LYING IN BED. RESTING QUIETLY. RESPIRATIONS EVEN AND UNLABORED. DILAYSIS TUES., THURS., SAT., LEFT ARM RESERVE. TELEMETRY. FSBS ACHS. NO O2. RIGHT HAND SL. RIGHT CHEST HEMOSPLIT. BED IN LOWEST POSIITON AND CALL LIGHT WITHIN REACH.
[2017-02-25 21:02] VITALS: BP 157/76
[2017-02-26 00:30] VITALS: BP 154/70
[2017-02-26 05:30] LABS: BASOPHILS 0.1 % (0-2); EOSINOPHILS 2.3 % (0-7); HEMATOCRIT 37.9 % (42.0-54.0); HEMOGLOBIN 11.8 g/dL (13.5-17.5); IMMATURE GRANULOCYTES 0.3 % (0-5); LYMPHOCYTES 12.3 % (15-50); MCH 30.3 pg (26.0-34.0); MCHC 31.1 g/dL (31.0-37.0); MCV 97.2 fL (80.0-100.0); MEAN PLATELET VOLUME 10.3 fL (7.4-10.4); MONOCYTES 8.6 % (2-11); NEUTROPHILS 76.4 % (40-80); PLATELET COUNT 181 10x3/uL (130-400); RDW 16.2 % (11.5-14.5)
[2017-02-26 05:36] LABS: WBC 8.8 10x3/uL (4.8-10.8)
[2017-02-26 05:46] LABS: ANION GAP 9.7 mmol/L (8-16); CALCIUM 9.1 mg/dL (8.5-10.1); CARBON DIOXIDE 30.6 mmol/L (21.0-32.0); CREATININE - SERUM 5.2 mg/dL (0.6-1.3); POTASSIUM - SERUM 4.3 mmol/L (3.5-5.1); VANCOMYCIN - RANDOM 16.9 ug/mL (10.0-20.0)
[2017-02-26 06:03] VITALS: BP 177/85
[2017-02-26 08:07] VITALS: BP 169/78
[2017-02-26 10:19] LABS: HEPATITIS C ANTIBODY <0.1 (0.0-0.9)
--- NOTE | 2017-02-26 16:47 | NUR ---
Patient Name: MINNIE ACEVEDO Admission Status: ER Accout number: [id number] Admission Date: 02-21-2017 : 1945 Admission Diagnosis:ALTERED MENTAL STATUS, UNSPECIFIED Attending: BUCK PITTMAN Current LOS: 5 Anticipated DC Date: 02-27-2017 Planned Disposition: Shelter Facility Primary Insurance: MEDICARE A & B PLANNED EXTERNAL PROVIDER: [facility], MEDICARE REHAB BED Discharge Planning Comments: * Is the patient Alert and Oriented? Yes 0 * How many steps to enter\\exit or inside your home? NONE 0 * PCP NONE DR. PITTMAN - RENAL 0 * Pharmacy [facility] [place] 0 * Preadmission Environment Home with Family 0 * ADLs Partial Dependent 0 * Partial ADLs (Assistance needed) Ambulation Bathing Medication Management Toileting Transfers 0 * Equipment Rolling Walker Wheelchair 0 * Other Equipment NO MEDICAL EQUIPMENT PROVIDER PREFERENCE 0 * List name and contact numbers for known caregivers / representatives who currently or will assist patient after discharge: HERMINIO ARANGO, FRIEND / CAREGIVER AT HOME, 0 * Community resources currently utilized Home Health OTHER 0 * Please name any agencies selected above. [facility], OUTPATIENT DIALYSIS, TTS, 0630AM 0 * Additional services required to return to the preadmission environment? Yes * Can the patient safely return to the preadmission environment? Yes 0 * Has this patient been hospitalized within the prior 30 days at any hospital? No 0 CM RECEIVED DISCHARGE ORDER, MET WITH PT IN ROOM TO DISCUSS DISCHARGE PLANNING AND NEEDS. PT REPORTS LIVING AT HOME DEPENDENTLY ON CONCHITA AND FRIENDS THAT CARE FOR HIM AT HOME. PT HAS ROLLING WALKER AND WHEELCHAIR WITH NO MEDICAL EQUIPMENT PROVIDER PREFERNECE. PT HAS HOME HEALTH WITH [facility], BUT THINKS THEY HAVE STOPPED COMING. PT DOES NOT KNOW HIS DOCTORS NAME NOR HIS PHARMACY REPORTING [facility] TAKES CARE OF EVERYTHING. CM DISCUSSED AVAILABILITY OF HOME HEALTH, REHAB SERVICES AND MEDICAL EQUIPMENT. PT STATES HE IS TOO WEAK TO GO HOME, HE WANTS CM TO GET HIM BACK AT THE SNF, THE SAME ONE HE WAS AT BEFORE. CM ASKED PT IS THAT IS THE VIMAL, PT STATES YES. CHOICE SIGNED. PT ASKED CM TO CALL CONCHITA AND TELL HIM WHAT IS HAPPENING. IMPORTANT MESSAGE FROM MEDICARE PROVIDED AND EXPLAINED. CM CALLED CONCHITA AT [phone], DISCUSSED DISCHARGE TODAY AND WHAT PT HAS REQUESTED. CONCHITA STATES "OK" AND REPORTS PT WAS LAST AT [facility]. PT HAS NO PRIMARY CARE DOCTOR, DR. PITTMAN IS PT'S RENAL DOCTOR AND PT USES [facility] [place]. CONCHITA REPORTS THE LAST TIME PT WAS IN [facility], HE REFUSED THERAPY SERVICES. [facility]IMA PAGED AND SPOKE TO RENAL NURSE SHANA, NOTIFIED OF PT'S REFUSAL OF DISCHARGE PLAN WITH REQUEST FOR SNF PLACEMENT. CM CALLED SAIMA, CLINICAL LIAISON FOR [facility], , ASKED FOR ASSESSMENT FOR REHAB ADMISSION. CM FAXED REFERRAL TO [facility] VIA SAIMA AT [phone]. CM WAITING ADMISSION DETERMINATION FROM THE [facility]. Baggage Security Checker: Herminio Bowman
[2017-02-26 16:52] VITALS: BP 139/65
--- NOTE | 2017-02-26 18:20 | NUR ---
SLEEPING IN BED. DC UPON PLACEMENT IN CORRECTION. CONTINUE PLAN OF CARE AND SAFETY PRECAUTIONS. MO ALARM ON.
--- NOTE | 2017-02-26 19:56 | NUR ---
PT IN BED RESTING QUIETLY. DENIES ANY PAIN OR NEEDS AT THIS TIME. BREATHING EVEN AND UNLABORED. BED IN LOW POSITION, CALL LIGHT WITHIN REACH.
[2017-02-26 21:53] VITALS: BP 132/64
[2017-02-27 02:37] VITALS: BP 136/62
[2017-02-27 05:09] LABS: BASOPHILS 0.2 % (0-2); EOSINOPHILS 3.7 % (0-7); IMMATURE GRANULOCYTES 0.3 % (0-5); LYMPHOCYTES 16.1 % (15-50); MCH 29.9 pg (26.0-34.0); MCHC 30.6 g/dL (31.0-37.0); MCV 97.8 fL (80.0-100.0); MEAN PLATELET VOLUME 10.9 fL (7.4-10.4); MONOCYTES 13.7 % (2-11); PLATELET COUNT 156 10x3/uL (130-400); RBC 3.68 10x6/uL (4.20-6.10); RDW 16.1 % (11.5-14.5)
[2017-02-27 05:16] VITALS: BP 130/68; BP 136/70
[2017-02-27 05:33] LABS: ANION GAP 8.9 mmol/L (8-16); CALCIUM 8.6 mg/dL (8.5-10.1); POTASSIUM - SERUM 3.9 mmol/L (3.5-5.1)
[2017-02-27 05:34] LABS: CREATININE - SERUM 3.4 mg/dL (0.6-1.3)
[2017-02-27 09:29] VITALS: BP 169/76
[2017-02-27 11:40] VITALS: BP 159/69
[2017-02-27 15:31] VITALS: BP 155/65
--- NOTE | 2017-02-27 17:00 | NUR ---
SITTING UP IN BED. ASSIST WITH EATING. RT CHEST HEMOSPLIT DRESSING CHANGED. LINEN AND BED BATH COMPLETE. SINUS RHTHYM 70bpm ON TELEMETRY. DENIES ANY NEEDS. BED LOCKED AND LOW. CALL LIGHT IN REACH. TWO SIDERAILS UP. MO ALARM ON.
--- NOTE | 2017-02-27 19:20 | NUR ---
PT RESTING IN BED. REPOSITIONED PT. ELEVATED PT LEFT ARM. PT AAO. DENIES ANY NEEDS. NO S/S OF DISTRESS. PT CALL LIGHT IN REACH. BED LOW. WILL CPOC
[2017-02-27 21:32] VITALS: BP 173/71
--- NOTE | 2017-02-28 01:46 | NUR ---
PT ASLEEP. RESPIRATIONS EVEN AND UNLABORED. BEDLOW AND CALL LIGHT IN REACH. NO S/S OF DISTRESS. WILL CPOC
--- NOTE | 2017-02-28 02:23 | NUR ---
GAVE PT A BED BATH AND CHANGED GOWN AND SHEETS. PT HAD A SMALL AMOUNT OF EMESIS WITH FOOD PARTICLES. PT DENIES ANY N/V AT THIS TIME. NO S/S OF DISTRESS. BED LOW AND CALL LIGHT IN REACH. SCDS APPLIED TO BILATERAL LOWER EXTREM. ALARM ON AND ACTIVE. WILL CPOC
[2017-02-28 02:45] VITALS: BP 130/76
[2017-02-28 04:42] VITALS: BP 160/80
--- NOTE | 2017-02-28 07:30 | NUR ---
AM ROUNDING DONE WITH PATIENT APPEARS TO BE SLEEPING. AROUSES EASILY. DENIES ANY NEEDS AT PRESENT TIME. ON HEART MONITOR SHOWING SR, HR 76. ON ROOM AIR. RESEVER LEFT ARM WITH AVF, LEFT ARM AND HAND ARE SWOLLEN, 3+, UP ON PILLOW. BED ALARM IS SET. SALINE LOCK SEEN TO RIGHT HAND. WILL MONITOR.
--- NOTE | 2017-02-28 08:21 | NUR ---
WHILE FEEDING JPATIENT BREAKFAST HE STARTS TO THROW UP. NOTHING ON EMAR FOR THIS. PAGE INTO SKIDWAY WORKER FOR NAUSEA MEDICATION.
[2017-02-28 09:45] VITALS: BP 154/73
--- NOTE | 2017-02-28 10:16 | NUR ---
1015-TO DIALYSIS VIA BED.
--- NOTE | 2017-02-28 11:06 | NUR ---
Patient Name: MINNIE ACEVEDO Encounter No: [id number] : 1945 Primary Insurance: MEDICARE A & B Anticipated DC Date: 02-27-2017 Planned Disposition: Prison Facility External Planned Provider: [facility], MEDICARE REHAB BED DCP follow-up note: CM RECEIVED CALL FROM SAIMA, CLINICAL LIAISON FOR [facility], , REFERRAL NOT RECEIVED VIA FAX. CM RE-FAXED REFERRAL TO [facility] VIA SAIMA AT [phone]. CM WAITING ADMISSION DETERMINATION FROM [facility]. Supervisor Sewing Department: Herminio Bowman
--- NOTE | 2017-02-28 13:36 | NUR ---
PATIENT IS STILL IN DIALYSIS AT THIS TIME.
--- NOTE | 2017-02-28 14:10 | NUR ---
Nutrition Follow Up: Per chart pt with some N/V this am. Pt is eating 45% meal avg on [facility]. +BM. Meds and labs reviewed. Rec continue current diet as tolerated. RD following.
--- NOTE | 2017-02-28 14:45 | NUR ---
RETURNS FROM DIALYSIS VIA BED. PINK PAD UNDER PATIENT IS WET. NEW PINK PAD AND GOWN CHANGED ON PATIENT PAST WIPING HIM DOWN. BED ALARM IS SET.
--- NOTE | 2017-02-28 16:48 | NUR ---
Patient Name: MINNIE ACEVEDO Encounter No: [id number] : 1945 Primary Insurance: MEDICARE A & B Anticipated DC Date: 02-27-2017 Planned Disposition: Detention Facility External Planned Provider: ANY ACCEPTING FACLITY, MEDICARE REHAB BED DCP follow-up note: CM WAS NOTIFIED BY SAIMA THAT [facility] HAS NOT BED AVAILABLE FOR [facility]. CM NOTIFIED SAIMA THAT PT WOULD LIKE REHAB FIRST AND THEN IF UNABLE TO GO HOME, [facility]. CM SPOKE TO PT IN ROOM, DISCUSSED OPTIONS. PT REPORTS HE WILL THINK ABOUT HIS OPTIONS AND LET CM KNOW. CM EXPRESSED TO PT THAT HE HAS BEEN READY FOR DISCHARGE FOR TWO DAYS, STATES HE CANNOT GO HOME AND [facility] WILL NOT TAKE THEY HAVE NO BED AVAILABLE. CM EXPLAINED TO PT THAT HE HAS NO OTHER CHOICE GIVEN WHAT PT HAS SAID THAN TO PICK ANOTHER FACILITY. PT STATES HE WILL THINK ABOUT IT. CM SPOKE TO DR. COLIN, NOTIFIED OF ABOVE; DR. COLIN SPOKE TO PT AND PT NOTIFIED CM THAT HE WOULD LIKE TO BE CONSIDERED FOR [facility] AND IF THEY DO NOT HAVE A BED, PT DOES NOT THINK HE CAN GO HOME HE IS TOO WEAK AND WOULD LIKE ANY AVAILABLE USP. CM NOTIFIED SAIMA WHO WILL FORWARD REFERRALS TO [facility] AND [facility]. CM WAITING ADMISSION DETERMINATIONS FROM [facility] AND [facility]. Herminio Bowman, CASE MANAGEMENT
[2017-02-28 16:51] VITALS: BP 150/73
--- NOTE | 2017-02-28 19:15 | NUR ---
PT IN BED. HOB IS 45. FAMILY IN ROOM. SHAVED PT AND CLEANED PT UP. PT IS SMILING AND HAPPY. BED ALARM IS ON AND ACTIVE. BED LOW AND CALL LIGHT IN REACH. PT DENIES ANY NEEDS AT THIS TIME. NO S/S OF DISTRESS. WILL CPOC
[2017-02-28 20:00] VITALS: BP 134/61
--- NOTE | 2017-02-28 20:56 | NUR ---
PT IS ORIENTED TO NAME AND ONLY. DIDNT ANSWER SITUATION, YEAR OR PLACE CORRECTLY BUT SAID YES AND SHOOK HIS HEAD YES WHEN I REORIENTED HIM ON CORRECT ANSWERS. WHEN I ASKED PT IF HE FEELS MORE CONFUSED THAN YESTURDAY HE STATED YES. PT WAS NOT CONFUSED YESTURDAY. PT WAS AAO WITH MOMENTS OF CONFUSION. WAS NOT ORIENTED TO TIME AND SITUATION. PT SITTING UP FOR A SNACK. FSBS IS 281 6 UNITS GIVEN AND PT IS EATING GRAMCRACKERS AND PNT BUTTER. LEFT ARM IS ELEVATED ON PILLOWS. BLOOD SUGAR WENT FROM 138 TO 281. UNKNOWN WHAT PT ATE THAT CAUSED THIS ELEVATION, ALTHOUGH PT HAD A VISITOR WHEN I DID ROUNDING. PT DENIES ANY NEEDS. NO S/S OF DISTRESS. WILL CPOC
[2017-03-01 04:00] VITALS: BP 158/68
--- NOTE | 2017-03-01 04:48 | NUR ---
LAB IN ROOM DRAWING BLOOD. PT RESTING. DENIES ANY NEEDS. NO S/S OF DISTRESS. BED LOW AND CALL LIGHT IN REACH. WILL CPOC
--- NOTE | 2017-03-01 06:28 | NUR ---
MORNING MEDS GIVEN PT SITTING UP EATING A SNACK. PUT PT IN CHAIR. MAX ASSIST. PT NOW SITTIN GIN CHAIR FOR SNACK. BED CHANGED R/T INCONT VOID. PT CLEANED AND LINEN AND GOWN CHANGED. PT DENIES ANY NEEDS. NO S/S OF DISTRESS. WILL CPOC
--- NOTE | 2017-03-01 07:22 | NUR ---
PATIENT IS UP IN CHAIR THIS AM SITTING ON MO PAD. LEFT ARM AND HAND ARE STILL SWOLLEN. RIGHT HAND SEEN WITH SALINE LOCK. ON HEART MONITOR SHOWING SR, HR 71. RIGHT CHEST HEMISPLIT SEEN WITH DRY INTACT DRESSING. CALL LIGHT IN USE, WILL CONTINUE TO MONITOR.
[2017-03-01 08:18] VITALS: BP 162/80
--- NOTE | 2017-03-01 09:28 | NUR ---
STILL SITTING IN CHAIR, SLIGHT NAUSEA WITH SPUTUM AND CRUSHED AYAN CRACKERS SEEN TO IT. DENIES ANY ASPIRTATION. WILL CONTINUE TO MONITOR.
--- NOTE | 2017-03-01 09:50 | NUR ---
X 2 ASSIST BACK TO BED, PATIENT IS REALLY COUGHING UP THICK SPUTUM. SUCTION SET UP WITH AMALIA AND BACK OF THROAT SUCTIONED. REPORTS THAT HE IS DOING BETTER NOW.
--- NOTE | 2017-03-01 11:41 | NUR ---
Patient Name: MINNIE ACEVEDO Encounter No: [id number] : 1945 Primary Insurance: MEDICARE A & B Anticipated DC Date: 03-01-2017 Planned Disposition: Home with Home Health External Planned Provider: [facility] DCP follow-up note: CM SPOKE TO [facility], [facility] WILL ACCEPT PT FOR REHAB OR [facility]; SAIMA SPOKE TO PT IN ROOM, PT REFUSED TO GO TO ANY HALFWAY, INFORMED SAIMA HE WANTS TO STAY IN THE HOSPITAL. CM MET WITH PT IN ROOM. PT REFUSES HALFWAY PLACEMENT, REPORTS HE IS GOING HOME. PT WANTS CM TO CALL CONCHITA, HIS CAREGIVER, AND HAVE PT PICKED UP IMMEDIATELY TO GO HOME. PT WANTS HOME HEALTH TO RESUME. CM EXPRESSED CONCERN THAT PT HAS NOT DEMONSTRATED ABILITY TO WALK AND CARE FOR SELF AT HOME; PT ASSURES CM THAT HE CAN MAKE HIS OWN ARRANGEMENTS FOR HOME CARE. IMPORTANT MESSAGE FROM MEDICARE PROVIDED AND EXPLAINED. CM PAGED AND SPOKE TO RENAL NURSE VIOLETA, NOTIFIED OF ABOVE, RECEIVED DISCHARGE ORDERS. CM CALLED [facility], DISCUSSED ABOVE, CONCHITA WILL BOAT DRIVER PT WITHIN THE HOUR TO GET PT HOME, WANTS HOME HEALTH WITH [facility] RESUMED. CM CALLED [facility], , SPOKE TO [place], NOTIFIED OF ABOVE, WENT OVER THERAPY NOTES. [facility] TO RESUME HOME CARE TOMORROW. JUDIT OF PATIENT PATHWAYS NOTIFIED WHO NOTIFIED [facility] OF PT'S RESUMPTION OF OUTPATIENT DIALYSIS CLINIC SCHEDULE. CM FAXED DISCHARGE INFORMATION TO [facility] AT [phone]. Herminio Bowman, CASE MANAGEMENT
[2017-03-01 12:30] VITALS: BP 161/80
--- NOTE | 2017-03-01 13:45 | NUR ---
SALINE LOCK REMOVED WITH CATH TIP INTACT. VERBAL AND WRITTEN DISCHARGE INSTRUCTIONS GIVEN TO PATIENT AND CAREGIVER. CAREGIVER AND PATIENT INSTRUCTED TO BE SITTING IN CHAIR AT 45 DEGREE SITTIN, TO TAKE SMALL BITES, AND SMALL SIPS OF LIQUIDS WHEN HE EATS AND DRINKS. REPORTED TO UNDERSTANDING OF THIS. DISCHARGED HOME WITH CAREGIVER IN HIS OWN WHEELCHAIR.
== END 2017-03-01 13:49 | disposition home health service (06) | DRG 682 ==
LOC: D.ER 10:32 → D.M2 15:00
PROVIDERS: Emergency Medicine; ADMIT Internal Medicine Nephrology
PROC: 5A1D70Z Performance of Urinary Filtration, Intermittent, Less than 6 Hours Per Day (ICD-10-PCS; principal; 2017-02-21)
DX: I12.0 Hypertensive chronic kidney disease with stage 5 chronic kidney disease or end stage renal disease (principal); A41.9 Sepsis, unspecified organism; N18.6 End stage renal disease; I42.9 Cardiomyopathy, unspecified; M48.54XA Collapsed vertebra, not elsewhere classified, thoracic region, initial encounter for fracture; S42.001A Fracture of unspecified part of right clavicle, initial encounter for closed fracture; W17.89XA Other fall from one level to another, initial encounter; F03.90 Unspecified dementia, unspecified severity, without behavioral disturbance, psychotic disturbance, mood disturbance, and anxiety; E11.40 Type 2 diabetes mellitus with diabetic neuropathy, unspecified; I10 Essential (primary) hypertension; E11.22 Type 2 diabetes mellitus with diabetic chronic kidney disease; D63.1 Anemia in chronic kidney disease; Z91.81 History of falling; R41.0 Disorientation, unspecified; Z86.73 Personal history of transient ischemic attack (TIA), and cerebral infarction without residual deficits; E87.6 Hypokalemia

== ENCOUNTER 2017-04-03 11:03 | Emergency (ER) | payer MEDICARE ==
[2017-02-22 13:13] VITALS: BMI 19.6
[2017-04-03 11:42] LABS: BASOPHILS 0.2 % (0-2); EOSINOPHILS 0.8 % (0-7); HEMATOCRIT 41.8 % (42.0-54.0); HEMOGLOBIN 12.8 g/dL (13.5-17.5); IMMATURE GRANULOCYTES 0.4 % (0-5); LYMPHOCYTES 13.3 % (15-50); MCH 29.4 pg (26.0-34.0); MCHC 30.6 g/dL (31.0-37.0); MCV 95.9 fL (80.0-100.0); MEAN PLATELET VOLUME 10.6 fL (7.4-10.4); NEUTROPHILS 76.3 % (40-80); PLATELET COUNT 157 10x3/uL (130-400); RBC 4.36 10x6/uL (4.20-6.10); RDW 16.6 % (11.5-14.5); WBC 9.3 10x3/uL (4.8-10.8)
[2017-04-03 11:55] LABS: ALBUMIN 2.8 g/dL (3.4-5.0); ANION GAP 13.9 mmol/L (8-16); BILIRUBIN - TOTAL 0.45 mg/dL (0.2-1.3); CARBON DIOXIDE 29.3 mmol/L (21.0-32.0); POTASSIUM - SERUM 4.2 mmol/L (3.5-5.1); PROTEIN - SERUM 6.6 g/dL (6.4-8.2)
== END 2017-04-03 15:39 | disposition home or self-care (01) ==
LOC: D.ER 11:03
PROVIDERS: Emergency Medicine
DX: K52.9 Noninfective gastroenteritis and colitis, unspecified (principal); I12.0 Hypertensive chronic kidney disease with stage 5 chronic kidney disease or end stage renal disease; N18.6 End stage renal disease; E11.9 Type 2 diabetes mellitus without complications; Z79.4 Long term (current) use of insulin

== ENCOUNTER 2017-04-05 06:49 | Day surgery (SDC) | payer MEDICARE ==
[~2017-04-05] VITALS: Ht 170.2 cm; Wt 72.6 kg
[2017-04-05 09:17] LABS: BASOPHILS 0.2 % (0-2); HEMATOCRIT 43.2 % (42.0-54.0); IMMATURE GRANULOCYTES 0.2 % (0-5); LYMPHOCYTES 16.1 % (15-50); MCHC 30.1 g/dL (31.0-37.0); MCV 96.4 fL (80.0-100.0); MEAN PLATELET VOLUME 10.6 fL (7.4-10.4); MONOCYTES 14.8 % (2-11); NEUTROPHILS 65.7 % (40-80); PLATELET COUNT 145 10x3/uL (130-400); RBC 4.48 10x6/uL (4.20-6.10); RDW 16.4 % (11.5-14.5)
[2017-04-05 09:32] LABS: WBC 5.4 10x3/uL (4.8-10.8)
[2017-04-05 09:38] LABS: APTT 30.9 SECONDS (22.8-39.4); INR 1.02 (0.85-1.17)
[2017-04-05 09:39] LABS: CALCIUM 9.1 mg/dL (8.5-10.1); CARBON DIOXIDE 28.7 mmol/L (21.0-32.0); CREATININE - SERUM 3.6 mg/dL (0.6-1.3); POTASSIUM - SERUM 3.7 mmol/L (3.5-5.1)
[2017-04-05 10:02] VITALS: BP 186/69; Ht 170.2 cm; Wt 72.6 kg
[2017-04-05] MEDS ORDERED: HYDROCODONE-APA1 TAB PO (12:02)
--- NOTE | 2017-04-05 12:31 | NUR ---
PRE OP BP 193/93
--- NOTE | 2017-04-09 15:39 | OP ---
PATIENT NAME: MINNIE ACEVEDO MEDICAL RECORD: [id number] :[birth year] LOCATION:D.OPS ADMISSION DATE: SURGEON: IGOR ALEJANDRO MD DATE OF OPERATION: 04/05/2017 DATE OF OPERATION: 04/05/2017 PREOPERATIVE DIAGNOSES: 1. End-stage renal disease. 2. Left upper extremity edema secondary to venous congestion. 3. Hypertension. 4. Diabetes mellitus. 5. Organic heart disease. POSTOPERATIVE DIAGNOSES: 1. End-stage renal disease. 2. Left upper extremity edema secondary to venous congestion. 3. Hypertension. 4. Diabetes mellitus. 5. Organic heart disease. PROCEDURE: Left upper extremity basilic vein ligation. SURGEON: Igor Alejandro MD REPORT OF PROCEDURE: The patient's left upper extremity was prepped and draped in sterile fashion. An old scar was present in the medial distal aspect of the upper arm. A total of 10 mL of 1% lidocaine with epinephrine was infused into the surrounding tissues. A longitudinal incision was made through this old scar. We did a tedious dissection down through the subcutaneous tissues and eventually came down to the anastomosis from the previous AV graft that extended from the patient's left axilla to the left distal basilic vein. I was able to find 2 branches coming off just distal to the anastomosis and the basilic vein and these were both ligated with 2-0 silk ties. At this point, we could still see a pulsatile flow into the anastomosis and through the proximal aspect of the basilic vein. Ultrasound evaluation showed there was good pulsatile flow through the vessels. There was a palpable thrill present in the AV graft. There was no sign of any active bleeding at this point. We then reapproximated the subcutaneous tissues with interrupted 3-0 Vicryls and the skin was closed with running subcutaneous 5-0 Monocryl. COMPLICATIONS: None. CONDITION: Stable. ANESTHESIA: General endotracheal and local. BLOOD LOSS: Minimal. TRANSINT:[id number] Voice Confirmation ID: [id number] DOCUMENT ID: [id number] OPERATIVE REPORT [id number] ADELAMINNIE BARRERA IGOR BROWNING MD at 1539 CC: JEANMARIE KEBEDE MD [id number] DICTATION DATE: 04/05/17 1213 [facility] SPREADER: 04/05/17 1314 [facility] 04/05/17 [facility] [address] [facility] [place] [address]
== END 2017-04-05 14:00 | disposition home or self-care (01) ==
LOC: D.OPS 06:49
PROVIDERS: Surgery
DX: T82.898A Other specified complication of vascular prosthetic devices, implants and grafts, initial encounter (principal); I13.11 Hypertensive heart and chronic kidney disease without heart failure, with stage 5 chronic kidney disease, or end stage renal disease; E11.22 Type 2 diabetes mellitus with diabetic chronic kidney disease; N18.6 End stage renal disease; Z99.2 Dependence on renal dialysis; Z01.812 Encounter for preprocedural laboratory examination

== ENCOUNTER 2017-04-11 17:06 | Emergency (ER) | payer MEDICARE ==
[2017-04-05 10:02] VITALS: BMI 25.1
[~2017-04-11 17:06] MED LIST changes: +HYDROCODONE-APA1 TAB PO
[2017-04-11 17:39] LABS: BASOPHILS 0.1 % (0-2); EOSINOPHILS 0.1 % (0-7); HEMATOCRIT 44.4 % (42.0-54.0); HEMOGLOBIN 13.6 g/dL (13.5-17.5); IMMATURE GRANULOCYTES 0.4 % (0-5); LYMPHOCYTES 10.3 % (15-50); MCH 29.1 pg (26.0-34.0); MCHC 30.6 g/dL (31.0-37.0); MCV 94.9 fL (80.0-100.0); MEAN PLATELET VOLUME 10.7 fL (7.4-10.4); MONOCYTES 8.9 % (2-11); NEUTROPHILS 80.2 % (40-80); PLATELET COUNT 150 10x3/uL (130-400); RBC 4.68 10x6/uL (4.20-6.10); RDW 15.8 % (11.5-14.5); WBC 8.1 10x3/uL (4.8-10.8)
[2017-04-11 17:55] LABS: ALBUMIN 2.9 g/dL (3.4-5.0); ANION GAP 12.8 mmol/L (8-16); BILIRUBIN - TOTAL 0.41 mg/dL (0.2-1.3); CALCIUM 8.8 mg/dL (8.5-10.1); CARBON DIOXIDE 30.2 mmol/L (21.0-32.0); CREATININE - SERUM 2.9 mg/dL (0.6-1.3); PROTEIN - SERUM 6.9 g/dL (6.4-8.2)
[2017-04-11 18:19] LABS: CREATINE KINASE 23 UL (21-232)
[2017-04-11 18:23] LABS: TROPONIN-I < 0.017 ng/mL (0.000-0.060)
[2017-04-11 21:46] LABS: AMORPHOUS SEDIMENT >1+ /lpf (NONE SEEN); APPEARANCE CLEAR (CLEAR); BACTERIA FEW /hpf (NONE SEEN); BILIRUBIN NEGATIVE (NEGATIVE); COLOR YELLOW (YELLOW); GLUCOSE 100 mg/dL (NEGATIVE); HYALINE CAST OCC /lpf (NONE SEEN); KETONE NEGATIVE (NEGATIVE); MUCUS <1+ /lpf (NONE SEEN); NITRITE NEGATIVE (NEGATIVE); PROTEIN 2+ mg/dL (NEGATIVE); RED CELLS - URINE RARE /hpf (0-5); UROBILINOGEN NORMAL (NORMAL); WHITE CELLS - URINE 0-5 /hpf (0-5)
[2017-04-11 22:09] LABS: UDS - AMPHET NEGATIVE QUAL (NEGATIVE); UDS - BARB NEGATIVE QUAL (NEGATIVE); UDS - BENZO NEGATIVE QUAL (NEGATIVE); UDS - COCAINE NEGATIVE QUAL (NEGATIVE); UDS - OPIATE POSITIVE QUAL (NEGATIVE); UDS - PCP NEGATIVE QUAL (NEGATIVE); UDS - THC NEGATIVE QUAL (NEGATIVE)
== END 2017-04-12 07:49 | disposition home or self-care (01) ==
LOC: D.ER 17:06
PROVIDERS: Family Medicine
DX: R41.82 Altered mental status, unspecified (principal); I12.0 Hypertensive chronic kidney disease with stage 5 chronic kidney disease or end stage renal disease; N18.6 End stage renal disease; E11.9 Type 2 diabetes mellitus without complications; Z79.4 Long term (current) use of insulin

== ENCOUNTER 2017-06-25 07:29 | Inpatient (IN) | payer MEDICARE ==
[~2017-06-25] VITALS: Ht 170.2 cm; Wt 44.7 kg
[2017-06-25 08:56] LABS: CREATINE KINASE 8 UL (21-232); MAGNESIUM - SERUM 2.1 mg/dL (1.8-2.4); PRO BNP 15313 pg/mL (0-125); TROPONIN-I < 0.017 ng/mL (0.000-0.060)
[2017-06-25 10:09] LABS: BASOPHILS 0.1 % (0-2); EOSINOPHILS 0.3 % (0-7); HEMATOCRIT 37.3 % (42.0-54.0); IMMATURE GRANULOCYTES 0.3 % (0-5); LYMPHOCYTES 10.2 % (15-50); MCH 29.3 pg (26.0-34.0); MCHC 29.5 g/dL (31.0-37.0); MCV 99.5 fL (80.0-100.0); MEAN PLATELET VOLUME 10.3 fL (7.4-10.4); MONOCYTES 9.2 % (2-11); NEUTROPHILS 79.9 % (40-80); RBC 3.75 10x6/uL (4.20-6.10); RDW 17.2 % (11.5-14.5); WBC 8.8 10x3/uL (4.8-10.8)
[2017-06-25 10:16] LABS: ALBUMIN 2.1 g/dL (3.4-5.0); ANION GAP 14.3 mmol/L (8-16); BILIRUBIN - TOTAL 0.45 mg/dL (0.2-1.3); CALCIUM 8.7 mg/dL (8.5-10.1); CARBON DIOXIDE 27.4 mmol/L (21.0-32.0); POTASSIUM - SERUM 3.7 mmol/L (3.5-5.1); PROTEIN - SERUM 6.2 g/dL (6.4-8.2)
[2017-06-25 10:21] LABS: PLATELET COUNT 317 10x3/uL (130-400)
[2017-06-25 11:25] LABS: APPEARANCE HAZY (CLEAR); BACTERIA FEW /hpf (NONE SEEN); BILIRUBIN NEGATIVE (NEGATIVE); COLOR YELLOW (YELLOW); GLUCOSE 50 mg/dL (NEGATIVE); GRANULAR CAST OCC /lpf (NONE SEEN); KETONE NEGATIVE (NEGATIVE); MUCUS >1+ /lpf (NONE SEEN); NITRITE NEGATIVE (NEGATIVE); PROTEIN TRACE mg/dL (NEGATIVE); RED CELLS - URINE OCC /hpf (0-5); SPECIFIC GRAVITY 1.015 (1.005-1.020); UROBILINOGEN NORMAL (NORMAL); WHITE CELLS - URINE 0-5 /hpf (0-5)
[2017-06-25 20:00] VITALS: BP 123/76
[2017-06-25 21:00] VITALS: BP 140/79
[2017-06-25 22:00] VITALS: BP 133/74
[2017-06-25 22:20] VITALS: BP 125/83; BMI 15.7
[2017-06-25 23:00] VITALS: BP 147/81
[2017-06-26] VITALS (16 sets, daily range): BP systolic 85–147; BP diastolic 51–80; Ht 170.2 cm; Wt 44.7 kg
[2017-06-26] MEDS ORDERED: ATIVAN0.5 MG PO (02:21)
[2017-06-26 03:50] LABS: BASOPHILS 0.1 % (0-2); EOSINOPHILS 0.2 % (0-7); HEMATOCRIT 37.7 % (42.0-54.0); HEMOGLOBIN 11.5 g/dL (13.5-17.5); IMMATURE GRANULOCYTES 0.3 % (0-5); LYMPHOCYTES 6.4 % (15-50); MCHC 30.5 g/dL (31.0-37.0); MCV 98.4 fL (80.0-100.0); MEAN PLATELET VOLUME 10.2 fL (7.4-10.4); MONOCYTES 6.6 % (2-11); NEUTROPHILS 86.4 % (40-80); PLATELET COUNT 302 10x3/uL (130-400); RBC 3.83 10x6/uL (4.20-6.10); RDW 16.8 % (11.5-14.5)
[2017-06-26 03:52] LABS: WBC 13.9 10x3/uL (4.8-10.8)
[2017-06-26 03:57] LABS: ANION GAP 14.1 mmol/L (8-16); CALCIUM 8.8 mg/dL (8.5-10.1); CARBON DIOXIDE 28.4 mmol/L (21.0-32.0); CREATININE - SERUM 4.3 mg/dL (0.6-1.3); POTASSIUM - SERUM 3.5 mmol/L (3.5-5.1)
[2017-06-27 00:41] VITALS: BP 108/52
[2017-06-27 05:32] VITALS: BP 144/71
[2017-06-27 06:35] LABS: BASOPHILS 0.3 % (0-2); EOSINOPHILS 1.5 % (0-7); HEMATOCRIT 35.9 % (42.0-54.0); HEMOGLOBIN 10.6 g/dL (13.5-17.5); IMMATURE GRANULOCYTES 0.1 % (0-5); LYMPHOCYTES 15.3 % (15-50); MCHC 29.5 g/dL (31.0-37.0); MCV 98.4 fL (80.0-100.0); MEAN PLATELET VOLUME 9.9 fL (7.4-10.4); MONOCYTES 9.3 % (2-11); NEUTROPHILS 73.5 % (40-80); PLATELET COUNT 207 10x3/uL (130-400); RBC 3.65 10x6/uL (4.20-6.10); RDW 16.5 % (11.5-14.5); WBC 7.3 10x3/uL (4.8-10.8)
[2017-06-27 06:56] LABS: ANION GAP 12.5 mmol/L (8-16); CALCIUM 8.4 mg/dL (8.5-10.1); PHOSPHOROUS 2.6 mg/dL (2.5-4.9); VANCOMYCIN - RANDOM 20.4 ug/mL (10.0-20.0)
[2017-06-27 07:29] LABS: CREATININE - SERUM 3.2 mg/dL (0.6-1.3)
[2017-06-27 07:30] LABS: POTASSIUM - SERUM 2.5 mmol/L (3.5-5.1)
[2017-06-27 07:33] VITALS: BP 112/65
[2017-06-27 20:00] VITALS: BP 138/64
[2017-06-28] VITALS: BP 137/60
[2017-06-28 05:48] LABS: BASOPHILS 0.1 % (0-2); EOSINOPHILS 0.7 % (0-7); HEMATOCRIT 35.2 % (42.0-54.0); HEMOGLOBIN 10.5 g/dL (13.5-17.5); IMMATURE GRANULOCYTES 0.2 % (0-5); LYMPHOCYTES 10.5 % (15-50); MCH 29.2 pg (26.0-34.0); MCHC 29.8 g/dL (31.0-37.0); MCV 98.1 fL (80.0-100.0); MONOCYTES 9.5 % (2-11); PLATELET COUNT 221 10x3/uL (130-400); RBC 3.59 10x6/uL (4.20-6.10); RDW 16.1 % (11.5-14.5); WBC 8.3 10x3/uL (4.8-10.8)
[2017-06-28 06:07] LABS: CALCIUM 8.1 mg/dL (8.5-10.1); CARBON DIOXIDE 31.5 mmol/L (21.0-32.0); PHOSPHOROUS 2.3 mg/dL (2.5-4.9); VANCOMYCIN - RANDOM 14.9 ug/mL (10.0-20.0)
[2017-06-28 06:11] LABS: CREATININE - SERUM 2.3 mg/dL (0.6-1.3); POTASSIUM - SERUM 3.5 mmol/L (3.5-5.1)
[2017-06-28 09:51] VITALS: BP 188/95
[2017-06-28 10:45] VITALS: BP 172/89
[2017-06-28 15:35] VITALS: BP 166/77
[2017-06-28 20:54] VITALS: BP 150/79
[2017-06-29 01:29] VITALS: BP 172/94
[2017-06-29 05:08] VITALS: BP 171/87
[2017-06-29 05:40] LABS: BASOPHILS 0.3 % (0-2); EOSINOPHILS 1.4 % (0-7); HEMATOCRIT 36.5 % (42.0-54.0); IMMATURE GRANULOCYTES 0.3 % (0-5); LYMPHOCYTES 16.5 % (15-50); MCH 28.9 pg (26.0-34.0); MCHC 30.1 g/dL (31.0-37.0); MONOCYTES 8.9 % (2-11); NEUTROPHILS 72.6 % (40-80); PLATELET COUNT 202 10x3/uL (130-400); RDW 15.4 % (11.5-14.5); WBC 7.3 10x3/uL (4.8-10.8)
[2017-06-29 05:47] LABS: MCV 96.1 fL (80.0-100.0)
[2017-06-29 06:15] LABS: ANION GAP 9.8 mmol/L (8-16); CALCIUM 8.1 mg/dL (8.5-10.1); CARBON DIOXIDE 28.9 mmol/L (21.0-32.0)
[2017-06-29 06:16] LABS: PHOSPHOROUS 3.1 mg/dL (2.5-4.9)
[2017-06-29 06:18] LABS: POTASSIUM - SERUM 2.7 mmol/L (3.5-5.1)
[2017-06-29 08:34] VITALS: BP 156/87
[2017-06-29 13:23] VITALS: BP 146/88
[2017-06-29 20:10] LABS: ANION GAP 7.2 mmol/L (8-16); CALCIUM 8.3 mg/dL (8.5-10.1); CARBON DIOXIDE 30.4 mmol/L (21.0-32.0); CREATININE - SERUM 2.1 mg/dL (0.6-1.3); POTASSIUM - SERUM 3.6 mmol/L (3.5-5.1)
[2017-06-29 20:32] VITALS: BP 164/91
[2017-06-29 23:49] VITALS: BP 103/42; BP 163/87
[2017-06-30 05:55] VITALS: BP 163/90
[2017-06-30 08:05] LABS: BASOPHILS 0.2 % (0-2); EOSINOPHILS 1.7 % (0-7); HEMATOCRIT 39.8 % (42.0-54.0); HEMOGLOBIN 12.2 g/dL (13.5-17.5); IMMATURE GRANULOCYTES 0.2 % (0-5); MCH 29.5 pg (26.0-34.0); MCHC 30.7 g/dL (31.0-37.0); MCV 96.1 fL (80.0-100.0); MEAN PLATELET VOLUME 10.4 fL (7.4-10.4); NEUTROPHILS 72.9 % (40-80); PLATELET COUNT 199 10x3/uL (130-400); RBC 4.14 10x6/uL (4.20-6.10); RDW 15.5 % (11.5-14.5); WBC 6.7 10x3/uL (4.8-10.8)
[2017-06-30 08:38] VITALS: BP 192/56
[2017-06-30 08:44] LABS: ANION GAP 12.7 mmol/L (8-16); CALCIUM 8.3 mg/dL (8.5-10.1); CARBON DIOXIDE 26.2 mmol/L (21.0-32.0); CREATININE - SERUM 2.2 mg/dL (0.6-1.3); PHOSPHOROUS 2.9 mg/dL (2.5-4.9); POTASSIUM - SERUM 4.9 mmol/L (3.5-5.1)
[2017-06-30 11:24] VITALS: BP 199/103
[2017-06-30 16:05] VITALS: BP 152/88
[2017-06-30 20:15] VITALS: BP 134/74
[2017-07-01 00:30] VITALS: BP 160/95
[2017-07-01 06:24] VITALS: BP 158/93
[2017-07-01 08:02] LABS: BASOPHILS 0.4 % (0-2); EOSINOPHILS 1.6 % (0-7); HEMATOCRIT 35.7 % (42.0-54.0); IMMATURE GRANULOCYTES 0.3 % (0-5); LYMPHOCYTES 19.3 % (15-50); MCH 29.4 pg (26.0-34.0); MCHC 30.8 g/dL (31.0-37.0); MCV 95.5 fL (80.0-100.0); MEAN PLATELET VOLUME 11.8 fL (7.4-10.4); MONOCYTES 9.3 % (2-11); NEUTROPHILS 69.1 % (40-80); PLATELET COUNT 209 10x3/uL (130-400); RBC 3.74 10x6/uL (4.20-6.10); RDW 15.3 % (11.5-14.5); WBC 7.4 10x3/uL (4.8-10.8)
[2017-07-01 08:21] VITALS: BP 174/99
[2017-07-01 08:44] LABS: ANION GAP 13.4 mmol/L (8-16); CALCIUM 8.3 mg/dL (8.5-10.1); PHOSPHOROUS 3.3 mg/dL (2.5-4.9); POTASSIUM - SERUM 5.4 mmol/L (3.5-5.1)
[2017-07-01 12:26] VITALS: BP 165/89
[2017-07-01 15:26] VITALS: BP 142/72
[2017-07-01 20:00] VITALS: BP 105/62
[2017-07-02] VITALS: BP 105/73
[2017-07-02 04:00] VITALS: BP 147/78
[2017-07-02 06:31] LABS: BASOPHILS 0.1 % (0-2); EOSINOPHILS 1.2 % (0-7); HEMATOCRIT 39.4 % (42.0-54.0); HEMOGLOBIN 12.1 g/dL (13.5-17.5); IMMATURE GRANULOCYTES 0.4 % (0-5); MCHC 30.7 g/dL (31.0-37.0); MCV 94.5 fL (80.0-100.0); MONOCYTES 9.9 % (2-11); NEUTROPHILS 70.4 % (40-80); PLATELET COUNT 237 10x3/uL (130-400); RBC 4.17 10x6/uL (4.20-6.10); WBC 8.5 10x3/uL (4.8-10.8)
[2017-07-02 06:42] LABS: ANION GAP 15.2 mmol/L (8-16); CALCIUM 8.7 mg/dL (8.5-10.1); CARBON DIOXIDE 23.1 mmol/L (21.0-32.0); CREATININE - SERUM 3.5 mg/dL (0.6-1.3); POTASSIUM - SERUM 5.3 mmol/L (3.5-5.1)
[2017-07-02 07:54] VITALS: BP 173/85
[2017-07-02 15:15] VITALS: BP 112/69
[2017-07-02 20:00] VITALS: BP 108/60
[2017-07-03] VITALS: BP 122/68
[2017-07-03 05:23] VITALS: BP 118/66
[2017-07-03 06:38] LABS: BASOPHILS 0.3 % (0-2); EOSINOPHILS 0.7 % (0-7); HEMATOCRIT 35.7 % (42.0-54.0); HEMOGLOBIN 11.1 g/dL (13.5-17.5); IMMATURE GRANULOCYTES 0.4 % (0-5); LYMPHOCYTES 19.9 % (15-50); MCH 28.8 pg (26.0-34.0); MCHC 31.1 g/dL (31.0-37.0); MEAN PLATELET VOLUME 11.3 fL (7.4-10.4); MONOCYTES 10.7 % (2-11); PLATELET COUNT 236 10x3/uL (130-400); RBC 3.86 10x6/uL (4.20-6.10); RDW 14.8 % (11.5-14.5); WBC 7.7 10x3/uL (4.8-10.8)
[2017-07-03 06:45] LABS: MCV 92.5 fL (80.0-100.0)
[2017-07-03 07:04] LABS: ANION GAP 13.9 mmol/L (8-16); CALCIUM 8.3 mg/dL (8.5-10.1); CARBON DIOXIDE 24.5 mmol/L (21.0-32.0); CREATININE - SERUM 2.7 mg/dL (0.6-1.3)
[2017-07-03 07:14] LABS: POTASSIUM - SERUM 4.4 mmol/L (3.5-5.1)
[2017-07-03 07:54] VITALS: BP 128/79
[2017-07-03 11:42] VITALS: BP 130/64
[2017-07-03 16:20] VITALS: BP 124/68
[2017-07-03 19:00] VITALS: BP 104/59
[2017-07-04 04:00] VITALS: BP 166/86
[2017-07-04 06:34] LABS: ANION GAP 15.2 mmol/L (8-16); CALCIUM 8.9 mg/dL (8.5-10.1); CARBON DIOXIDE 25.5 mmol/L (21.0-32.0); POTASSIUM - SERUM 4.7 mmol/L (3.5-5.1)
[2017-07-04 06:35] LABS: CREATININE - SERUM 3.8 mg/dL (0.6-1.3)
[2017-07-04 06:53] LABS: BASOPHILS 0.3 % (0-2); EOSINOPHILS 0.3 % (0-7); HEMATOCRIT 36.7 % (42.0-54.0); HEMOGLOBIN 11.6 g/dL (13.5-17.5); IMMATURE GRANULOCYTES 0.5 % (0-5); LYMPHOCYTES 18.6 % (15-50); MCH 29.1 pg (26.0-34.0); MCHC 31.6 g/dL (31.0-37.0); MCV 92.2 fL (80.0-100.0); MEAN PLATELET VOLUME 11.5 fL (7.4-10.4); MONOCYTES 13.7 % (2-11); NEUTROPHILS 66.6 % (40-80); PLATELET COUNT 260 10x3/uL (130-400); RBC 3.98 10x6/uL (4.20-6.10); RDW 14.7 % (11.5-14.5); WBC 8.6 10x3/uL (4.8-10.8)
[2017-07-04 09:23] VITALS: BP 99/52
[2017-07-04 12:04] VITALS: BP 131/73
[2017-07-04 21:06] VITALS: BP 138/73
[2017-07-05 00:58] VITALS: BP 131/73
[2017-07-05 04:00] VITALS: BP 159/59
[2017-07-05 06:59] LABS: BASOPHILS 0.3 % (0-2); EOSINOPHILS 1.2 % (0-7); HEMATOCRIT 38.4 % (42.0-54.0); HEMOGLOBIN 11.6 g/dL (13.5-17.5); IMMATURE GRANULOCYTES 0.6 % (0-5); LYMPHOCYTES 23.5 % (15-50); MCH 28.6 pg (26.0-34.0); MCHC 30.2 g/dL (31.0-37.0); MONOCYTES 13.5 % (2-11); NEUTROPHILS 60.9 % (40-80); PLATELET COUNT 253 10x3/uL (130-400); RBC 4.06 10x6/uL (4.20-6.10); RDW 15.2 % (11.5-14.5); WBC 6.7 10x3/uL (4.8-10.8)
[2017-07-05 07:14] LABS: ANION GAP 12.2 mmol/L (8-16); CALCIUM 8.5 mg/dL (8.5-10.1); CARBON DIOXIDE 27.4 mmol/L (21.0-32.0)
[2017-07-05 07:20] LABS: CREATININE - SERUM 2.4 mg/dL (0.6-1.3); POTASSIUM - SERUM 3.6 mmol/L (3.5-5.1)
[2017-07-05 07:23] LABS: MCV 94.6 fL (80.0-100.0)
[2017-07-05 08:34] VITALS: BP 162/88
[2017-07-05] MEDS ORDERED: MEGACE400 MG/10 PO (10:47)
[2017-07-05 11:47] VITALS: BP 151/78
[2017-07-05 16:15] VITALS: BP 149/94
[2017-07-05 20:26] VITALS: BP 161/84
[2017-07-06 00:34] VITALS: BP 168/78
[2017-07-06 04:00] VITALS: BP 103/37
[2017-07-06 08:38] VITALS: BP 170/97
[2017-07-06 10:43] VITALS: BP 173/84
[2017-07-06 20:30] VITALS: BP 101/78
[2017-07-07 00:30] VITALS: BP 149/74
[2017-07-07 04:30] VITALS: BP 157/40
[2017-07-07 08:22] VITALS: BP 132/71
[2017-07-07 11:55] VITALS: BP 130/66
[2017-07-07 16:18] VITALS: BP 162/92
[2017-07-07 21:53] VITALS: BP 140/78
[2017-07-08 02:40] VITALS: BP 139/67
[2017-07-08 06:44] VITALS: BP 145/94
[2017-07-08 10:17] VITALS: BP 99/62
[2017-07-08 12:33] VITALS: BP 164/98
[2017-07-08 18:36] VITALS: BP 82/48
[2017-07-08 20:00] VITALS: BP 140/88
[2017-07-09 04:00] VITALS: BP 138/80
[2017-07-09 08:25] VITALS: BP 157/88
[2017-07-09 18:47] VITALS: BP 196/103
[2017-07-09 20:00] VITALS: BP 162/94
[2017-07-10] VITALS (7 sets, daily range): BP systolic 150–196; BP diastolic 80–109
[2017-07-10 06:59] LABS: BASOPHILS 0.3 % (0-2); EOSINOPHILS 1.8 % (0-7); HEMATOCRIT 33.3 % (42.0-54.0); HEMOGLOBIN 10.4 g/dL (13.5-17.5); IMMATURE GRANULOCYTES 0.1 % (0-5); LYMPHOCYTES 12.1 % (15-50); MCH 28.7 pg (26.0-34.0); MCHC 31.2 g/dL (31.0-37.0); MEAN PLATELET VOLUME 10.4 fL (7.4-10.4); MONOCYTES 7.8 % (2-11); NEUTROPHILS 77.9 % (40-80); PLATELET COUNT 242 10x3/uL (130-400); RBC 3.62 10x6/uL (4.20-6.10); RDW 14.3 % (11.5-14.5); WBC 7.9 10x3/uL (4.8-10.8)
[2017-07-10 07:36] LABS: ANION GAP 12.2 mmol/L (8-16); CALCIUM 8.3 mg/dL (8.5-10.1); CARBON DIOXIDE 24.9 mmol/L (21.0-32.0); CREATININE - SERUM 2.5 mg/dL (0.6-1.3); PHOSPHOROUS 2.9 mg/dL (2.5-4.9); POTASSIUM - SERUM 3.1 mmol/L (3.5-5.1)
[2017-07-11 02:33] VITALS: BP 169/90
[2017-07-11 06:02] VITALS: BP 182/93
[2017-07-11 06:06] LABS: BASOPHILS 0.1 % (0-2); EOSINOPHILS 1.5 % (0-7); HEMATOCRIT 33.7 % (42.0-54.0); HEMOGLOBIN 10.4 g/dL (13.5-17.5); IMMATURE GRANULOCYTES 0.1 % (0-5); LYMPHOCYTES 7.4 % (15-50); MCH 28.7 pg (26.0-34.0); MCHC 30.9 g/dL (31.0-37.0); MCV 93.1 fL (80.0-100.0); MEAN PLATELET VOLUME 10.4 fL (7.4-10.4); MONOCYTES 8.9 % (2-11); PLATELET COUNT 216 10x3/uL (130-400); RBC 3.62 10x6/uL (4.20-6.10); RDW 14.2 % (11.5-14.5); WBC 6.8 10x3/uL (4.8-10.8)
[2017-07-11 06:24] LABS: ANION GAP 12.1 mmol/L (8-16); CALCIUM 8.2 mg/dL (8.5-10.1); CARBON DIOXIDE 25.2 mmol/L (21.0-32.0); CREATININE - SERUM 3.1 mg/dL (0.6-1.3); PHOSPHOROUS 2.8 mg/dL (2.5-4.9); POTASSIUM - SERUM 3.3 mmol/L (3.5-5.1)
[2017-07-11 08:14] VITALS: BP 184/102
[2017-07-11 15:16] VITALS: BP 178/94
[2017-07-11 22:47] VITALS: BP 111/61
[2017-07-12 05:34] LABS: BASOPHILS 0.3 % (0-2); EOSINOPHILS 0.4 % (0-7); HEMATOCRIT 33.1 % (42.0-54.0); HEMOGLOBIN 10.1 g/dL (13.5-17.5); IMMATURE GRANULOCYTES 0.1 % (0-5); LYMPHOCYTES 6.8 % (15-50); MCH 28.9 pg (26.0-34.0); MCHC 30.5 g/dL (31.0-37.0); MCV 94.6 fL (80.0-100.0); MEAN PLATELET VOLUME 11.3 fL (7.4-10.4); MONOCYTES 9.6 % (2-11); NEUTROPHILS 82.8 % (40-80); PLATELET COUNT 188 10x3/uL (130-400); RDW 14.6 % (11.5-14.5); WBC 7.5 10x3/uL (4.8-10.8)
[2017-07-12 05:53] LABS: ANION GAP 11.9 mmol/L (8-16); CALCIUM 8.2 mg/dL (8.5-10.1); CARBON DIOXIDE 27.5 mmol/L (21.0-32.0); CREATININE - SERUM 2.6 mg/dL (0.6-1.3); PHOSPHOROUS 2.3 mg/dL (2.5-4.9); POTASSIUM - SERUM 3.4 mmol/L (3.5-5.1)
[2017-07-12 06:39] VITALS: BP 133/76
[2017-07-12 08:27] VITALS: BP 138/68
[2017-07-12 10:58] VITALS: BP 132/62
[2017-07-12 14:46] VITALS: BP 128/69
[2017-07-12 19:00] VITALS: BP 159/74
[2017-07-13 04:00] VITALS: BP 188/91
[2017-07-13 05:51] LABS: BASOPHILS 0.2 % (0-2); EOSINOPHILS 3.8 % (0-7); HEMATOCRIT 35.1 % (42.0-54.0); HEMOGLOBIN 10.6 g/dL (13.5-17.5); IMMATURE GRANULOCYTES 0.1 % (0-5); LYMPHOCYTES 12.1 % (15-50); MCH 29.2 pg (26.0-34.0); MCHC 30.2 g/dL (31.0-37.0); MEAN PLATELET VOLUME 11.2 fL (7.4-10.4); MONOCYTES 12.2 % (2-11); NEUTROPHILS 71.6 % (40-80); RBC 3.63 10x6/uL (4.20-6.10); RDW 14.6 % (11.5-14.5); WBC 8.8 10x3/uL (4.8-10.8)
[2017-07-13 05:52] LABS: MCV 96.7 fL (80.0-100.0); PLATELET COUNT 137 10x3/uL (130-400)
[2017-07-13 06:07] LABS: ANION GAP 12.2 mmol/L (8-16); CALCIUM 8.2 mg/dL (8.5-10.1); CARBON DIOXIDE 27.3 mmol/L (21.0-32.0); PHOSPHOROUS 2.4 mg/dL (2.5-4.9); POTASSIUM - SERUM 3.5 mmol/L (3.5-5.1)
[2017-07-13 06:08] LABS: CREATININE - SERUM 3.3 mg/dL (0.6-1.3)
[2017-07-13 09:03] VITALS: BP 143/92
[2017-07-13 16:00] VITALS: BP 150/77
[2017-07-13 21:44] VITALS: BP 133/67
[2017-07-14 00:30] VITALS: BP 140/72
[2017-07-14 04:30] VITALS: BP 166/84
[2017-07-14 05:11] LABS: BASOPHILS 0.1 % (0-2); EOSINOPHILS 3.2 % (0-7); HEMATOCRIT 32.6 % (42.0-54.0); HEMOGLOBIN 9.9 g/dL (13.5-17.5); IMMATURE GRANULOCYTES 0.1 % (0-5); LYMPHOCYTES 11.5 % (15-50); MCH 28.5 pg (26.0-34.0); MCHC 30.4 g/dL (31.0-37.0); MEAN PLATELET VOLUME 11.2 fL (7.4-10.4); MONOCYTES 11.9 % (2-11); NEUTROPHILS 73.2 % (40-80); PLATELET COUNT 145 10x3/uL (130-400); RBC 3.47 10x6/uL (4.20-6.10); RDW 14.2 % (11.5-14.5); WBC 7.5 10x3/uL (4.8-10.8)
[2017-07-14 05:13] LABS: MCV 93.9 fL (80.0-100.0)
[2017-07-14 05:40] LABS: ANION GAP 15.5 mmol/L (8-16); CALCIUM 8.2 mg/dL (8.5-10.1); CARBON DIOXIDE 24.8 mmol/L (21.0-32.0); PHOSPHOROUS 1.8 mg/dL (2.5-4.9); POTASSIUM - SERUM 3.3 mmol/L (3.5-5.1)
[2017-07-14 05:41] LABS: CREATININE - SERUM 1.2 mg/dL (0.6-1.3)
[2017-07-14 09:21] VITALS: BP 179/88
[2017-07-14 13:50] VITALS: BP 151/87
[2017-07-14 16:59] VITALS: BP 150/87
[2017-07-14 20:30] VITALS: BP 120/71
[2017-07-15] VITALS (7 sets, daily range): BP systolic 125–189; BP diastolic 71–101
[2017-07-15 11:05] LABS: BASOPHILS 0.3 % (0-2); EOSINOPHILS 2.8 % (0-7); HEMATOCRIT 34.6 % (42.0-54.0); HEMOGLOBIN 10.8 g/dL (13.5-17.5); IMMATURE GRANULOCYTES 0.2 % (0-5); LYMPHOCYTES 18.3 % (15-50); MCH 28.9 pg (26.0-34.0); MCHC 31.2 g/dL (31.0-37.0); MCV 92.5 fL (80.0-100.0); MEAN PLATELET VOLUME 11.3 fL (7.4-10.4); MONOCYTES 9.7 % (2-11); NEUTROPHILS 68.7 % (40-80); PLATELET COUNT 153 10x3/uL (130-400); RBC 3.74 10x6/uL (4.20-6.10); RDW 13.8 % (11.5-14.5); WBC 6.4 10x3/uL (4.8-10.8)
[2017-07-15 11:16] LABS: ANION GAP 11.6 mmol/L (8-16); CALCIUM 8.2 mg/dL (8.5-10.1); CARBON DIOXIDE 27.7 mmol/L (21.0-32.0); CREATININE - SERUM 3.3 mg/dL (0.6-1.3); PHOSPHOROUS 2.4 mg/dL (2.5-4.9); POTASSIUM - SERUM 3.3 mmol/L (3.5-5.1)
[2017-07-16 00:24] VITALS: BP 150/79
[2017-07-16 05:31] VITALS: BP 169/82
[2017-07-16 08:00] VITALS: BP 170/89
[2017-07-16 11:49] VITALS: BP 128/76
[2017-07-16 15:11] VITALS: BP 131/77
[2017-07-17] VITALS: BP 120/70
[2017-07-17 10:52] VITALS: BP 113/86
[2017-07-17 13:18] VITALS: BP 120/62
[2017-07-17 16:25] VITALS: BP 147/83
[2017-07-17 20:00] VITALS: BP 143/74
[2017-07-18 04:00] VITALS: BP 138/74
[2017-07-18 08:34] VITALS: BP 133/68
[2017-07-18 11:52] VITALS: BP 149/78
[2017-07-18] MEDS ORDERED: BUPRENEX IV (14:25)
[2017-07-18] MEDS ORDERED: FUROSEMIDE10 MG/M1 IV (14:25)
[2017-07-18 16:17] VITALS: BP 156/65
== END 2017-07-18 17:51 | disposition home health service (06) | DRG 871 ==
LOC: D.ER 07:29 → D.M2 12:20 → D.EDHOLD 12:20 → D.ICU 12:20 → D.M2 06-26 15:41
PROVIDERS: Emergency Medicine; Internal Medicine; Internal Medicine Nephrology
PROC: 5A1D70Z Performance of Urinary Filtration, Intermittent, Less than 6 Hours Per Day (ICD-10-PCS; principal; 2017-06-25)
DX: A41.9 Sepsis, unspecified organism (principal); N18.6 End stage renal disease; J18.9 Pneumonia, unspecified organism; I12.0 Hypertensive chronic kidney disease with stage 5 chronic kidney disease or end stage renal disease; R64 Cachexia; E11.22 Type 2 diabetes mellitus with diabetic chronic kidney disease; Z99.2 Dependence on renal dialysis; E11.40 Type 2 diabetes mellitus with diabetic neuropathy, unspecified; D63.1 Anemia in chronic kidney disease; Z86.73 Personal history of transient ischemic attack (TIA), and cerebral infarction without residual deficits; Z68.25 Body mass index [BMI] 25.0-25.9, adult; E87.6 Hypokalemia